=== PATIENT | female | born 1940 | race Caucasian/White ===

== ENCOUNTER 2016-11-10 13:30 | Emergency (ER) | payer MEDICARE, MEDICAID ==
[2016-11-10 13:31] VITALS: BMI 31.6
[2016-11-10 13:39] VITALS: BP 157/88; PULSE 92; RESP 16; TEMP 98; O2SAT 100
--- NOTE | 2016-11-10 13:48 | ED PDOC ---
HPI: General Adult Time Seen by Provider: 11/10/16 13:47 Chief Complaint (Nursing): Abdominal Pain Chief Complaint (Provider): abdominal pain, headache History Per: Patient Additional Complaint(s): 75 year old female presents to ED with diffuse abdominal pain and nausea for the past 2 weeks associated with dizziness and slight headache. Patient is only tolerating sips of water and she states she has not had any solid food in 3 days. She denies any vomiting but states she has been persistently nauseous and dizzy for the past 2 weeks. She rates abd pain upon arrival as 6/10 and headache as 3/10. No associated chest pain, SOB or GONZALEZ, no vision changes or numbness. Patient states she takes pepcid and dexilant daily for gastritis but these meds do not seem to be helping. Past Medical History Reviewed: Historical Data, Nursing Documentation, Vital Signs Vital Signs: Last Vital Signs Temp 98 F 11/10/16 13:35 Pulse 92 H 11/10/16 13:35 Resp 16 11/10/16 13:35 BP 157/88 H 11/10/16 13:35 Pulse Ox 100 11/10/16 17:07 - Medical History PMH: Anxiety, Arthritis, Bipolar Disorder, COPD, Depression, Gastritis, HTN, Hypercholesterolemia - Surgical History Surgical History: Tonsillectomy - Family History Family History: States: No Known Family Hx - Living Arrangements Living Arrangements: With Family - Social History Current smoker - smoking cessation education provided: No Alcohol: None Drugs: Denies - Immunization History Hx Influenza Vaccination: Yes Hx Pneumococcal Vaccination: No - Home Medications Home Medications: Ambulatory Orders Medication Instructions Recorded Aliskiren [Tekturna] 300 mg PO DAILY #0 tab 02/10/16 Atorvastatin [Lipitor] 20 mg PO DAILY #0 tab 02/10/16 Carvedilol [Coreg] 25 mg PO BID #0 tab 02/10/16 LORazepam [Ativan] 0.25 mg PO BID #0 tab 02/10/16 Lisinopril [Zestril] 20 mg PO DAILY #0 tab 02/10/16 Mirtazapine [Remeron] 45 mg PO HS #0 tab 02/10/16 Multimineral/Multivitamin 1 tab PO DAILY #0 tab 02/10/16 [Therapeutic-M Tab] Pantoprazole [Protonix EC Tab] 40 mg PO DAILY #0 ect 02/10/16 Zolpidem [Ambien] 10 mg PO HS #0 tab 02/10/16 amLODIPine [Norvasc] 10 mg PO DAILY #0 tab 02/10/16 buPROPion SR [Wellbutrin SR 150 MG] 150 mg PO DAILY #0 tab 02/10/16 buPROPion [Wellbutrin] 75 mg PO DAILY #0 tab 02/10/16 LORazepam [Ativan] 1 mg PO Q12 PRN #4 tab 06/30/16 Nitrofurantoin Macrocrystals 100 mg PO BID #14 cap 07/08/16 [Macrobid] Ondansetron [Zofran Odt] 4 mg PO ASDIR PRN #10 odt 11/10/16 Rabeprazole Sodium [Aciphex] 20 mg PO DAILY #30 tab 11/10/16 - Allergies Allergies/Adverse Reactions: Allergies Allergy/AdvReac Type Severity Reaction Status Date / Time No Known Allergies Allergy Verified 07/08/16 17:16 Review of Systems ROS Statement: Except As Marked, All Systems Reviewed And Found Negative Constitutional: Negative for: Fever, Chills, Weakness Cardiovascular: Negative for: Chest Pain, Palpitations, Light Headedness Respiratory: Negative for: Cough, Shortness of Breath, SOB with Exertion Gastrointestinal: Positive for: Nausea, Abdominal Pain. Negative for: Vomiting , Diarrhea, Constipation, Melena, Hematochezia, Hematemesis, Rectal Pain Genitourinary Female: Negative for: Dysuria, Frequency Neurological: Positive for: Headache (slight), Dizziness. Negative for: Weakness, Numbness, Incoordination, Change in Speech, Confusion, Seizures, Altered Mental Status Physical Exam - Reviewed Nursing Documentation Reviewed: Yes Vital Signs Reviewed: Yes - Physical Exam Appears: Positive for: Well, Non-toxic, No Acute Distress Skin: Negative for: Rash Eye Exam: Positive for: Normal appearance, EOMI, PERRL Cardiovascular/Chest: Positive for: Regular Rate, Rhythm Respiratory: Positive for: Normal Breath Sounds Gastrointestinal/Abdominal: Positive for: Soft, Tenderness (mild tenderness in all 4 quadrants, no rebound or guarding, obese abdoment) Back: Negative for: L CVA Tenderness, R CVA Tenderness Extremity: Negative for: Pedal Edema Neurologic/Psych: Positive for: Alert, Oriented - Laboratory Results Result Diagrams: 11/10/16 14:40 11/10/16 14:30 - ECG O2 Sat by Pulse Oximetry: 100 Pulse Ox Interpretation: Normal - Other Rad CXR X-Ray: Interpreted by Me, Viewed By Me X-Ray Interpretation: no acute finding KUB X-Ray: Interpreted by Me, Viewed By Me X-Ray Interpretation: no acute finding Abd US X-Ray: Read By Radiologist X-Ray Interpretation: see below Medical Decision Making Medical Decision Makin75 year old female with abdominal pain, nausea, headache and dizziness for 2 weeks Plan: EKG CXR KUB Abd US CBC CMP Lipase Trop UA/Culture IVF IV pepcid and IV zofran PO maalox Abd US: IMPRESSION: Small cyst lower pole left kidney. There may also be a small non-obstructing echogenic calculus lower pole left kidney as detailed above. Follow-up of CT scan of the abdomen pelvis could confirm if necessary. Hepatomegaly. Mild suspected fatty hepatic infiltration however other infiltrative hepatocellular disease process not excluded. Pancreas is not well delineated due to body habitus and bowel gas. Patient feels slightly better after meds given. She tolerated foot tray in ED, no emesis noted. Patient was given rx acihpex for gastritis and she was referred to GI forest economist for follow up. Rx zofran also given. Disposition - Clinical Impression Clinical Impression: Gastritis - Patient ED Disposition Is Patient to be Admitted: No Counseled Patient/Family Regarding: Studies Performed, Diagnosis, Need For Followup, Rx Given - Disposition Referrals: David ADAMS,MD Karan [Medical Doctor] - Disposition: Routine/Home Disposition Time: 16:37 Condition: STABLE Additional Instructions: Stop taking dexilant and started take aciphex as prescribed. Take zofran rx as needed for nausea. Follow up with gatroenterologist or primary care doctor. Prescriptions: Ondansetron [Zofran Odt] 4 mg PO ASDIR PRN #10 odt PRN Reason: Nausea/Vomiting Rabeprazole Sodium [Aciphex] 20 mg PO DAILY #30 tab Instructions: Gastritis (ED), Diet for Ulcers and Gastritis (ED) Results - Lab Results Lab Results: 11/10/16 11/10/16 11/10/16 14:44 14:40 14:30 WBC 8.6 RBC 4.92 Hgb 14.4 Hct 43.0 MCV 87.5 MCH 29.2 MCHC 33.4 RDW 13.2 Plt Count 274 MPV 7.8 Neut % (Auto) 58.0 Lymph % (Auto) 29.2 Dickens % (Auto) 9.1 Eos % (Auto) 3.2 Baso % (Auto) 0.5 Neut # 5.0 Lymph # 2.5 Dickens # 0.8 Eos # 0.3 Baso # 0.0 Sodium 142 Potassium 4.3 Chloride 104 Carbon Dioxide 26 Anion Gap 17 BUN 13 Creatinine 0.7 Est GFR ( Amer) > 60 Est GFR (Non-Af Amer) > 60 Random Glucose 86 Calcium 9.9 Total Bilirubin 0.4 AST 27 ALT 33 Alkaline Phosphatase 90 Troponin I < 0.0120 Total Protein 7.5 Albumin 4.6 Globulin 2.9 Albumin/Globulin Ratio 1.6 Lipase 161 Urine Color Yellow Urine Clarity Slighty-cloudy Urine pH 6.0 Ur Specific [place] 1.018 Urine Protein 30 Urine Glucose (UA) 50 Urine Ketones Negative Urine Blood Negative Urine Nitrate Negative Urine Bilirubin Negative Urine Urobilinogen 0.2-1.0 Ur Leukocyte Esterase Small Urine RBC (Auto) 1 Urine Microscopic WBC 7 H Ur Squamous Epith Cells 1 Calcium Oxalate Crystal Rare Amorphous Sediment Rare H Hyaline Casts >20 H
[2016-11-10] MEDS ORDERED: Sodium Chloride 0.9% 1,000 ML IV STA (14:20)
[2016-11-10] MEDS ORDERED: Alum-Mag Hydrox-Simethicone Susp (30 mL) PO STA (14:35)
[2016-11-10] MEDS ORDERED: Alum-Mag Hydrox-Simethicone Susp (30 mL) ONE (14:44)
[2016-11-10 15:36] LABS: BASO % 0.5 % (0.0-2.0); EOS # 0.3 K/uL (0.0-0.7); EOS % 3.2 % (0.0-4.0); LYMPH # 2.5 K/uL (1.0-4.3); LYMPH % 29.2 % (20.0-40.0); MEAN CELL VOLUME 87.5 fl (81.0-99.0); MEAN CORPUSCULAR HEMOGLOBIN 29.2 pg (27.0-31.0); MEAN CORPUSCULAR HGB CONC 33.4 g/dL (33.0-37.0); MEAN PLATELET VOLUME 7.8 fl (7.2-11.7); MONO # 0.8 K/uL (0.0-0.8); MONO % 9.1 % (0.0-10.0); NRBC % 0.1 % (0.0-0.0); RED CELL DISTRIBUTION WIDTH 13.2 % (11.5-14.5); WHITE BLOOD COUNT 8.6 K/uL (4.8-10.8)
[2016-11-10 15:41] LABS: RBC URINE 1 /hpf (0-3); URINE BILIRUBIN NEGATIVE (NEGATIVE); URINE BLOOD NEGATIVE (NEGATIVE); URINE CALCIUM OXALATE CRYSTALS RARE /hpf (<OCC); URINE COLOR YELLOW (YELLOW); URINE GLUCOSE (UA) 50 mg/dL (Normal); URINE KETONE NEGATIVE (NEGATIVE); URINE LEUKOCYTE ESTERASE SMALL Leu/uL (Negative); URINE PROTEIN 30 mg/dL (NEGATIVE); URINE UROBILINOGEN 0.2-1.0 mg/dL (0.2-1.0); WBC URINE 7 /hpf (0-5)
[2016-11-10 15:46] LABS: ALB/GLOB RATIO 1.6 (1.0-2.1); ALKALINE PHOSPHATASE 90 U/L (38-126); ALT/SGPT 33 U/L (9-52); AST/SGOT 27 U/L (14-36); BILIRUBIN,TOTAL 0.4 mg/dl (0.2-1.3); BLOOD UREA NITROGEN 13 mg/dl (7-17); CALCIUM 9.9 mg/dL (8.4-10.2); CARBON DIOXIDE 26 mmol/L (22-30); CHLORIDE 104 mmol/L (98-107); GFR AFRICAN-AMERICAN > 60; GLUCOSE,RANDOM 86 mg/dL (65-105); LIPASE 161 U/L (23-300); POTASSIUM 4.3 MMOL/L (3.6-5.0); SODIUM 142 mmol/l (132-148); TOTAL PROTEIN 7.5 G/DL (6.3-8.2)
--- NOTE | 2016-11-10 16:14 | US ---
HISTORY: abdominal pain and nausea COMPARISON: None. TECHNIQUE: Sonographic evaluation of the abdomen. FINDINGS: LIVER: Liver is enlarged measuring approximately 21 cm in CC dimension. Liver demonstrates smooth contour though increased on echotexture likely secondary to fatty infiltration however other infiltrative hepatocellular disease process not excluded. No obvious hepatic mass or collection. No gross intrahepatic bile duct dilatation. Portal vein demonstrates hepatopetal flow. GALLBLADDER: Gallbladder is physiologically distended. No evidence of intraluminal gallbladder calculi. No pericholecystic fluid collections or sonographic Patel sign. COMMON BILE DUCT: Measures the the 4.1 mm. No stones. No dilatation. PANCREAS: Note the pancreas is incompletely seen due to bowel gas and body habitus. RIGHT KIDNEY: Measures 10.4 x 5.7 x 4.7 LEFT KIDNEY: Measures 10.4 x 4.6 x 5.3cm. Normal echogenicity. No calculus, mass, or hydronephrosis. . Small cyst lower pole left kidney measuring 2.7 x 2.9 x 2.5. In addition, there is an echogenic focus lower pole measuring 0.97 x 0.8 x 0.54 that could represent a nonobstructing calculus SPLEEN: Normal in size measuring approximately 8.5 cm. . No mass. AORTA: No evidence of abdominal aortic aneurysm IVC: Unremarkable. OTHER FINDINGS: None. IMPRESSION: Small cyst lower pole left kidney. There may also be a small obstructing echogenic calculus lower pole left kidney as detailed above. Follow-up of CT scan of the abdomen pelvis could confirm if necessary. Hepatomegaly. Mild suspected fatty hepatic infiltration however other infiltrative hepatocellular disease process not excluded. Pancreas is not well delineated due to body habitus and bowel gas.
--- NOTE | 2016-11-10 16:57 | RAD ---
HISTORY: clearance COMPARISON: Comparison chest dated 01/20/2016 FINDINGS: LUNGS: Mild bibasilar atelectasis. Biapical pleural thickening. PLEURA: No significant pleural effusion identified, no pneumothorax apparent. CARDIOVASCULAR: Heart size is upper limits of normal/ borderline enlarged. OSSEOUS STRUCTURES: Re- demonstrated is a moderate to fairly significant dextroscoliosis centered in the lower thoracic region. Degenerative changes both shoulder girdles. VISUALIZED UPPER ABDOMEN: Normal. OTHER FINDINGS: None. IMPRESSION: No active disease.
--- NOTE | 2016-11-10 17:21 | RAD ---
HISTORY: abd pain COMPARISON: Correlation made with abdominal ultrasound obtained earlier same day FINDINGS: BOWEL: Nonobstructive/nonspecific bowel gas pattern. BONES: Multilevel degenerative spondylosis of the lower thoracic and to a lesser degree lumbar spine. There may also be chronic compression deformity of the L2 segment. Clinic correlation recommended. OTHER FINDINGS: Small elliptical shaped at calcific density overlying the left renal silhouette (lower pole measuring 7 mm could represent a nonobstructing calculus. Multiple tiny calcifications overlying of pelvis consistent with calcified pelvic phleboliths IMPRESSION: No evidence of acute mechanical bowel obstruction. Suspect renal calculus lower pole left kidney seen to better advantage on prior abdominal ultrasound.
--- NOTE | 2016-11-11 13:28 | CARD ---
APPROVED REPORT EKG Measurement Heart [id number] <Conclusion> Normal sinus rhythm Possible Anterior infarct, age undetermined-not diagnostic Abnormal ECG
== END 2016-11-10 18:16 | disposition home or self-care (01) ==
LOC: H.ER 13:30
DX: K29.70 Gastritis, unspecified, without bleeding (principal); R11.0 Nausea; R51 Headache; I10 Essential (primary) hypertension
CPT/HCPCS: 71010; 74000; 76700; 80053; 81003; 83690; 84484; 85025; 87086; 93005; 96374; 99284; J2405; J7040

== ENCOUNTER 2016-11-20 11:39 | Emergency (ER) | payer MEDICARE, MEDICAID ==
[2016-11-20 11:39] VITALS: BMI 31.6
[2016-11-20 11:50] VITALS: TEMP 98
[2016-11-20] MEDS ORDERED: Sodium Chloride 0.9% 500 ML IV STA (12:00)
[2016-11-20 12:24] LABS: BASO # 0.1 K/uL (0.0-0.2); BASO % 0.7 % (0.0-2.0); EOS # 0.2 K/uL (0.0-0.7); EOS % 1.9 % (0.0-4.0); HEMOGLOBIN 15.3 g/dL (12.0-16.0); LYMPH # 3.1 K/uL (1.0-4.3); LYMPH % 26.3 % (20.0-40.0); MEAN CELL VOLUME 87.6 fl (81.0-99.0); MEAN CORPUSCULAR HEMOGLOBIN 29.2 pg (27.0-31.0); MEAN CORPUSCULAR HGB CONC 33.3 g/dL (33.0-37.0); MEAN PLATELET VOLUME 7.6 fl (7.2-11.7); MONO # 0.8 K/uL (0.0-0.8); NEUT # 7.5 K/uL (1.8-7.0); NEUT % 64.1 % (50.0-75.0); NRBC % 0.1 % (0.0-0.0); RBC 5.25 Mil/uL (3.80-5.20); RED CELL DISTRIBUTION WIDTH 13.2 % (11.5-14.5); WHITE BLOOD COUNT 11.7 K/uL (4.8-10.8)
[2016-11-20 12:32] LABS: ALB/GLOB RATIO 1.6 (1.0-2.1); ALBUMIN 5.1 g/dL (3.5-5.0); ALT/SGPT 40 U/L (9-52); AST/SGOT 26 U/L (14-36); BLOOD UREA NITROGEN 14 mg/dl (7-17); CALCIUM 10.7 mg/dL (8.4-10.2); GFR AFRICAN-AMERICAN > 60; GFR NON-AFRICAN AMERICAN > 60; LIPASE 208 U/L (23-300); MAGNESIUM 2.1 MG/DL (1.6-2.3)
[2016-11-20 12:46] LABS: SQUAMOUS EPITHIAL 1 /hpf (0-5); URINE BACTERIA RARE (<OCC); URINE BILIRUBIN NEGATIVE (NEGATIVE); URINE BLOOD NEGATIVE (NEGATIVE); URINE CLARITY CLEAR (Clear); URINE COLOR YELLOW (YELLOW); URINE GLUCOSE (UA) 150 mg/dL (Normal); URINE LEUKOCYTE ESTERASE MOD Leu/uL (Negative); URINE NITRATE NEGATIVE (NEGATIVE); URINE PROTEIN NEGATIVE (NEGATIVE); URINE UROBILINOGEN 0.2-1.0 mg/dL (0.2-1.0)
[2016-11-20 13:01] LABS: BARBITURATES, UR NEGATIVE (NEGATIVE); BENZODIAZEPINES, UR POSITIVE (NEGATIVE); OPIATES, UR NEGATIVE (NEGATIVE); PHENCYCLIDINE, UR NEGATIVE (NEGATIVE)
--- NOTE | 2016-11-20 13:04 | ED PDOC ---
HPI: Abdomen Time Seen by Provider: 11/20/16 11:59 Chief Complaint (Nursing): Abdominal Pain Chief Complaint (Provider): abdominal pain History Per: Patient (75 y/o female h/o Anxiety/bipolar disorder/htn/ hyperlipidemia here with decreased appetite, nausea ongoing x weeks. Patient states she has not been able to eat despite use of dexilant/zofran. Patient states she feels depressed but has no SI/HI. ) Past Medical History Reviewed: Historical Data, Nursing Documentation, Vital Signs Vital Signs: Last Vital Signs Temp 98 F 11/20/16 11:47 Pulse 108 H 11/20/16 11:47 Resp 20 11/20/16 11:47 BP 104/62 11/20/16 11:47 Pulse Ox 98 11/20/16 18:00 - Medical History PMH: Anxiety, Arthritis, Bipolar Disorder, COPD, Depression, Gastritis, HTN, Hypercholesterolemia Denies: Diabetes, Hepatitis, HIV, Chronic Kidney Disease, Seizures, Sexually Transmitted Disease - Surgical History Surgical History: Tonsillectomy Denies: Pacemaker - Family History Family History: States: Unknown Family Hx - Immunization History Hx Influenza Vaccination: Yes Hx Pneumococcal Vaccination: No - Home Medications Home Medications: Ambulatory Orders Medication Instructions Recorded Aliskiren [Tekturna] 300 mg PO DAILY #0 tab 02/10/16 Atorvastatin [Lipitor] 20 mg PO DAILY #0 tab 02/10/16 Carvedilol [Coreg] 25 mg PO BID #0 tab 02/10/16 LORazepam [Ativan] 0.25 mg PO BID #0 tab 02/10/16 Lisinopril [Zestril] 20 mg PO DAILY #0 tab 02/10/16 Mirtazapine [Remeron] 45 mg PO HS #0 tab 02/10/16 Multimineral/Multivitamin 1 tab PO DAILY #0 tab 02/10/16 [Therapeutic-M Tab] Pantoprazole [Protonix EC Tab] 40 mg PO DAILY #0 ect 02/10/16 Zolpidem [Ambien] 10 mg PO HS #0 tab 02/10/16 amLODIPine [Norvasc] 10 mg PO DAILY #0 tab 02/10/16 buPROPion SR [Wellbutrin SR 150 MG] 150 mg PO DAILY #0 tab 02/10/16 buPROPion [Wellbutrin] 75 mg PO DAILY #0 tab 02/10/16 LORazepam [Ativan] 1 mg PO Q12 PRN #4 tab 06/30/16 Nitrofurantoin Macrocrystals 100 mg PO BID #14 cap 07/08/16 [Macrobid] Ondansetron [Zofran Odt] 4 mg PO ASDIR PRN #10 odt 11/10/16 Rabeprazole Sodium [Aciphex] 20 mg PO DAILY #30 tab 11/10/16 - Allergies Allergies/Adverse Reactions: Allergies Allergy/AdvReac Type Severity Reaction Status Date / Time No Known Allergies Allergy Verified 11/20/16 11:46 Review of Systems ROS Statement: Except As Marked, All Systems Reviewed And Found Negative Physical Exam - Reviewed Nursing Documentation Reviewed: Yes Vital Signs Reviewed: Yes - Physical Exam Appears: Positive for: Well, Non-toxic, No Acute Distress Head Exam: Positive for: ATRAUMATIC, NORMAL INSPECTION, NORMOCEPHALIC Skin: Positive for: Normal Color, Warm, DRY Eye Exam: Positive for: EOMI, Normal appearance, PERRL ENT: Positive for: Normal ENT Inspection Neck: Positive for: Normal, Painless ROM Cardiovascular/Chest: Positive for: Regular Rate, Rhythm Respiratory: Positive for: CNT, Normal Breath Sounds Gastrointestinal/Abdominal: Positive for: Normal Exam, Bowel Sounds, Soft Back: Positive for: Normal Inspection Extremity: Positive for: Normal ROM Neurologic/Psych: Positive for: Alert, Oriented - Laboratory Results Result Diagrams: 11/20/16 12:15 11/20/16 12:15 - ECG O2 Sat by Pulse Oximetry: 98 - Progress ED Course And Treament: NS 500ML IV 250 ML PER HOUR PEPCID 20 MG IV /ZOFRAN 4 MG IV X 1 DOSE PATIENT CLEARED FOR DISCHARGE BY DR. ORELLANA. DIAGNOSIS DEPRESSION PATIENT TO F/U OUTPATIENT ON SATURDAY WITH PSYCH. WILL GIVE MEAL IN ED. CT ABDOMEN/ PELVIS FINDINGS: LOWER THORAX: Minor linear atelectasis/ scarring and pleural thickening left lingular region felt to be postinflammatory. There is also some minimal scarring and parenchymal thickening left lateral and posterior sulci. No infiltrate effusion or basilar pneumothorax. . There is a small hiatal hernia with wall thickening of the distal esophagus that could be due to protrusion of gastric mucosa. Esophagitis or other intrinsic/invasive wall lesion not excluded. LIVER: Liver is enlarged measuring nearly 20 cm in CC dimension. Questionable artifact versus tiny 7 mm low-attenuation focus superior aspect right lobe liver near the diaphragmatic dome best seen on axial image number 16 Liver demonstrates normal attenuation pattern. GALLBLADDER AND BILE DUCTS: Gallbladder is physiologically distended. No evidence of intraluminal gallbladder calculi. PANCREAS: The pancreas is somewhat atrophic and fatty replaced. No evidence of pancreatic mass collection or calcification. No significant pancreatic ductal dilatation. SPLEEN: Spleen exhibits relatively normal size and attenuation pattern without mass collection or calcification. ADRENALS: Re- demonstrated is a left adrenal mass which has increased in size measuring approximately 2.48 cm on current exam. This 1.9 cm on prior study. . Hounsfield units in the high single and low double digits most likely represent adenoma Right adrenal gland unremarkable. KIDNEYS AND URETERS: The kidneys exhibit relatively symmetric size. There is N approximately 7.8 mm calculus within the mid to lower pole left kidney with a very faint somewhat linear approximately 4 mm calculus upper/ midpole left kidney. Peripheral calcification within the left renal hilar region likely vascular in origin. There is an approximately 3 cm x 2.7 cm cyst lower pole left kidney which is increased in size from prior exam. No definitive evidence of hydronephrosis. BLADDER: Urinary bladder is physiologically distended. No evidence of intraluminal urinary bladder calculi. REPRODUCTIVE: Several small calcifications scattered about the distal margins of the uterus likely vascular in origin. APPENDIX: Normal-appearing partially air filled appendix best seen on coronal image number [id number]. No periappendiceal inflammatory changes. BOWEL: Evaluation of the bowel is limited due to the lack of oral contrast material. Stomach is incompletely distended which presumably accounts for thick-walled appearance. The possibility of a gastritis not excluded. Visualized loops of small bowel exhibit normal contour and caliber. No evidence acute mechanical small bowel obstruction. Multiple colonic diverticula seen along the sigmoid and distal descending colon. No radiographic evidence of acute diverticulitis. There appears to be some mild rectal wall thickening. Clinical correlation recommended. Follow-up sigmoidoscopy may be prudent PERITONEUM: Unremarkable. No fluid collection. No free air. Small fat containing umbilical hernia. LYMPH NODES: There are few small nonspecific retroperitoneal lymph nodes. VASCULATURE: Unremarkable. No aortic aneurysm. BONES: Mild multilevel degenerative spondylosis of the lower thoracic and lumbar spine. There is slight anterior subluxation L4 over L5 felt to be secondary to hypertrophic facets as no definitive pars defects seen. OTHER FINDINGS: None. IMPRESSION: There is an approximately 7.8 mm elliptical shaped calcification within the lower pole left kidney ago with a faint linear calcification upper pole left kidney. No evidence of hydronephrosis. Probable vascular calcification left renal hilar region. Lower pole cyst left kidney increased in size from prior exam as above. Hepatomegaly. Questionable artifact versus tiny 7 mm low-attenuation focus superior aspect right lobe liver near the diaphragmatic dome best seen on axial image number 16 Diverticulosis without radiographic evidence of acute diverticulitis. There appears to be some mild rectal wall thickening. Clinical correlation recommended. Follow-up sigmoidoscopy may be prudent Increase size left adrenal mass likely representing adenoma based on Hounsfield units in the upper single /low double digits as above. RESULTS D/W PATIENT. ADVISED F/U WITH PMD TO ARRANGE FURTHER MANAGEMENT/ INVESTIGATION OF FINDINGS. PATIENT EATING IN ED. APPEARS WELL. WILL F/U WITH UROLOGY ALSO FOR EVALUATION OF RENAL STONE. Disposition - Clinical Impression Clinical Impression: Depression - Patient ED Disposition Is Patient to be Admitted: No - Disposition Referrals: Jennifer Cha MD [Medical Doctor] - Disposition: Routine/Home Disposition Time: 16:11 Condition: FAIR Instructions: Kidney Stones (DC), Depression (DC)
--- NOTE | 2016-11-20 13:04 | RAD ---
HISTORY: routine COMPARISON: No prior. FINDINGS: LUNGS: Poor inspiration with low lung volumes, crowded bronchovascular markings and mild bibasilar atelectasis. PLEURA: No significant pleural effusion identified, no pneumothorax apparent. CARDIOVASCULAR: Normal. OSSEOUS STRUCTURES: No significant abnormalities. VISUALIZED UPPER ABDOMEN: Normal. OTHER FINDINGS: None. IMPRESSION: Poor inspiration with low lung volumes, crowded bronchovascular markings and mild bibasilar atelectasis
--- NOTE | 2016-11-20 14:08 | RAD ---
Chest and abdomen dated 11/20/2016. History: Abdominal pain. Nausea. Frontal view of the chest and supine/erect views of the abdomen performed. Comparison made with prior studies dated 11/20/2016 and 11/10/2016 respectively. Heart size is within range of normal. Mild bibasilar atelectasis. Biapical pleural thickening is present. No evidence of free intraperitoneal air seen under the diaphragmatic surfaces. . No evidence of acute mechanical bowel obstruction. Re- demonstrated is a elliptical shaped calcific density overlying the lower pole left renal silhouette. Rule out renal calculus. Multiple tiny calculi overlying the true pelvis likely represent calcified pelvic phleboliths. Multiple tiny left-sided calcified buttock injection granulomata present. Multilevel degenerative spondylosis of the thoracic and lumbar spine Impression: Mild bibasilar atelectasis and mild biapical pleural thickening. No evidence acute mechanical bowel obstruction. Questionable left renal calculus as described.
--- NOTE | 2016-11-20 17:23 | CT ---
PROCEDURE: CT abdomen and pelvis dated 11/20/2016 HISTORY: R/O HYDRONEPHROSIS; OBSTRUCTED CALCULI COMPARISON: None. TECHNIQUE: Contiguous axial images of the abdomen and pelvis pelvis without oral or intravenous contrast material. Coronal and Sagittal reformats generated. Radiation dose: Total exam DLP = 914.71 mGy-cm. This CT exam was performed using one or more of the following dose reduction techniques: Automated exposure control, adjustment of the mA and/or kV according to patient size, and/or use of iterative reconstruction technique. FINDINGS: LOWER THORAX: Minor linear atelectasis/ scarring and pleural thickening left lingular region felt to be postinflammatory. There is also some minimal scarring and parenchymal thickening left lateral and posterior sulci. No infiltrate effusion or basilar pneumothorax. . There is a small hiatal hernia with wall thickening of the distal esophagus that could be due to protrusion of gastric mucosa. Esophagitis or other intrinsic/invasive wall lesion not excluded. LIVER: Liver is enlarged measuring nearly 20 cm in CC dimension. Questionable artifact versus tiny 7 mm low-attenuation focus superior aspect right lobe liver near the diaphragmatic dome best seen on axial image number 16 Liver demonstrates normal attenuation pattern. GALLBLADDER AND BILE DUCTS: Gallbladder is physiologically distended. No evidence of intraluminal gallbladder calculi. PANCREAS: The pancreas is somewhat atrophic and fatty replaced. No evidence of pancreatic mass collection or calcification. No significant pancreatic ductal dilatation. SPLEEN: Spleen exhibits relatively normal size and attenuation pattern without mass collection or calcification. ADRENALS: Re- demonstrated is a left adrenal mass which has increased in size measuring approximately 2.48 cm on current exam. This 1.9 cm on prior study. . Hounsfield units in the high single and low double digits most likely represent adenoma Right adrenal gland unremarkable. KIDNEYS AND URETERS: The kidneys exhibit relatively symmetric size. There is N approximately 7.8 mm calculus within the mid to lower pole left kidney with a very faint somewhat linear approximately 4 mm calculus upper/ midpole left kidney. Peripheral calcification within the left renal hilar region likely vascular in origin. There is an approximately 3 cm x 2.7 cm cyst lower pole left kidney which is increased in size from prior exam. No definitive evidence of hydronephrosis. BLADDER: Urinary bladder is physiologically distended. No evidence of intraluminal urinary bladder calculi. REPRODUCTIVE: Several small calcifications scattered about the distal margins of the uterus likely vascular in origin. APPENDIX: Normal-appearing partially air filled appendix best seen on coronal image number [id number]. No periappendiceal inflammatory changes. BOWEL: Evaluation of the bowel is limited due to the lack of oral contrast material. Stomach is incompletely distended which presumably accounts for thick-walled appearance. The possibility of a gastritis not excluded. Visualized loops of small bowel exhibit normal contour and caliber. No evidence acute mechanical small bowel obstruction. Multiple colonic diverticula seen along the sigmoid and distal descending colon. No radiographic evidence of acute diverticulitis. There appears to be some mild rectal wall thickening. Clinical correlation recommended. Follow-up sigmoidoscopy may be prudent PERITONEUM: Unremarkable. No fluid collection. No free air. Small fat containing umbilical hernia. LYMPH NODES: There are few small nonspecific retroperitoneal lymph nodes. VASCULATURE: Unremarkable. No aortic aneurysm. BONES: Mild multilevel degenerative spondylosis of the lower thoracic and lumbar spine. There is slight anterior subluxation L4 over L5 felt to be secondary to hypertrophic facets as no definitive pars defects seen. OTHER FINDINGS: None. IMPRESSION: There is an approximately 7.8 mm elliptical shaped calcification within the lower pole left kidney ago with a faint linear calcification upper pole left kidney. No evidence of hydronephrosis. Probable vascular calcification left renal hilar region. Lower pole cyst left kidney increased in size from prior exam as above. Hepatomegaly. Questionable artifact versus tiny 7 mm low-attenuation focus superior aspect right lobe liver near the diaphragmatic dome best seen on axial image number 16 Diverticulosis without radiographic evidence of acute diverticulitis. There appears to be some mild rectal wall thickening. Clinical correlation recommended. Follow-up sigmoidoscopy may be prudent Increase size left adrenal mass likely representing adenoma based on Hounsfield units in the upper single /low double digits as above.
[2016-11-20 18:23] VITALS: BP 136/72; PULSE 90; RESP 19; O2SAT 99
--- NOTE | 2016-11-22 11:50 | CARD ---
APPROVED REPORT EKG Measurement Heart [id number] <Conclusion> Normal sinus rhythm Normal ECG
== END 2016-11-20 18:40 | disposition home or self-care (01) ==
LOC: H.ER 11:39
DX: R10.9 Unspecified abdominal pain (principal); N20.0 Calculus of kidney; F41.9 Anxiety disorder, unspecified; F31.9 Bipolar disorder, unspecified; E27.9 Disorder of adrenal gland, unspecified; E78.00 Pure hypercholesterolemia, unspecified; I10 Essential (primary) hypertension
CPT/HCPCS: 71010; 74022; 74176; 80053; 81003; 83690; 83735; 84443; 84484; 85025; 87086; 87181; 93005; 96361; 96374; 96375; 99284; G0480; J2405; J7040

== ENCOUNTER 2016-12-01 12:28 | Emergency (ER) | payer MEDICARE, MEDICAID ==
[2016-12-01 12:29] VITALS: BMI 31.6
[2016-12-01 12:43] VITALS: BP 106/66; PULSE 73; RESP 18; TEMP 99.3; O2SAT 98
--- NOTE | 2016-12-01 13:13 | ED PDOC ---
HPI: Abdomen Time Seen by Provider: 12/01/16 12:47 Chief Complaint (Nursing): Abdominal Pain Chief Complaint (Provider): abdominal pain, vomiting, nausea History Per: Patient Additional Complaint(s): 75-year-old female presents to emergency department with vomiting and abdominal pain for 3 days. Patient states that she took Zofran this morning but vomited after taking the Zofran. Patient states she has not had a solid meal in 3 days. She does tolerate sips of water. Patient denies fever or chills. No diarrhea. Patient has been seen in emergency department recently for same complaint. Past Medical History Reviewed: Historical Data, Nursing Documentation, Vital Signs Vital Signs: Last Vital Signs Temp 99.3 F 12/01/16 12:40 Pulse 73 12/01/16 12:40 Resp 18 12/01/16 12:40 BP 106/66 12/01/16 12:40 Pulse Ox 98 12/01/16 15:17 - Medical History PMH: Anxiety, Arthritis, Bipolar Disorder, COPD, Depression, Diabetes, Gastritis , HTN, Hypercholesterolemia - Surgical History Surgical History: Tonsillectomy - Family History Family History: States: No Known Family Hx - Living Arrangements Living Arrangements: With Family - Social History Current smoker - smoking cessation education provided: No Alcohol: None Drugs: Denies - Home Medications Home Medications: Ambulatory Orders Medication Instructions Recorded Aliskiren [Tekturna] 300 mg PO DAILY #0 tab 02/10/16 Atorvastatin [Lipitor] 20 mg PO DAILY #0 tab 02/10/16 Carvedilol [Coreg] 25 mg PO BID #0 tab 02/10/16 LORazepam [Ativan] 0.25 mg PO BID #0 tab 02/10/16 Lisinopril [Zestril] 20 mg PO DAILY #0 tab 02/10/16 Mirtazapine [Remeron] 45 mg PO HS #0 tab 02/10/16 Multimineral/Multivitamin 1 tab PO DAILY #0 tab 02/10/16 [Therapeutic-M Tab] Pantoprazole [Protonix EC Tab] 40 mg PO DAILY #0 ect 02/10/16 Zolpidem [Ambien] 10 mg PO HS #0 tab 02/10/16 amLODIPine [Norvasc] 10 mg PO DAILY #0 tab 02/10/16 buPROPion SR [Wellbutrin SR 150 MG] 150 mg PO DAILY #0 tab 02/10/16 buPROPion [Wellbutrin] 75 mg PO DAILY #0 tab 02/10/16 LORazepam [Ativan] 1 mg PO Q12 PRN #4 tab 06/30/16 Nitrofurantoin Macrocrystals 100 mg PO BID #14 cap 07/08/16 [Macrobid] Ondansetron [Zofran Odt] 4 mg PO ASDIR PRN #10 odt 11/10/16 Rabeprazole Sodium [Aciphex] 20 mg PO DAILY #30 tab 11/10/16 Metoclopramide [Reglan] 10 mg PO Q6 PRN #15 tab 12/01/16 Nitrofurantoin Macrocrystals 100 mg PO BID #20 tab 12/01/16 [Macrobid] - Allergies Allergies/Adverse Reactions: Allergies Allergy/AdvReac Type Severity Reaction Status Date / Time No Known Allergies Allergy Verified 11/20/16 11:46 Review of Systems ROS Statement: Except As Marked, All Systems Reviewed And Found Negative Constitutional: Negative for: Fever, Chills Cardiovascular: Negative for: Chest Pain, Palpitations Respiratory: Negative for: Cough, Shortness of Breath Gastrointestinal: Positive for: Nausea, Vomiting, Abdominal Pain. Negative for : Diarrhea Genitourinary Female: Negative for: Dysuria Neurological: Negative for: Headache Physical Exam - Reviewed Nursing Documentation Reviewed: Yes Vital Signs Reviewed: Yes - Physical Exam Appears: Positive for: Well, Non-toxic, No Acute Distress Skin: Negative for: Rash Eye Exam: Positive for: Normal appearance, EOMI, PERRL Cardiovascular/Chest: Positive for: Regular Rate, Rhythm Respiratory: Positive for: Normal Breath Sounds. Negative for: Wheezing, Respiratory Distress Gastrointestinal/Abdominal: Positive for: Soft. Negative for: Tenderness, Distended, Guarding, Rebound Back: Negative for: L CVA Tenderness, R CVA Tenderness Extremity: Negative for: Pedal Edema Neurologic/Psych: Positive for: Alert, Oriented - Laboratory Results Result Diagrams: 12/01/16 13:30 12/01/16 14:15 - ECG O2 Sat by Pulse Oximetry: 98 Pulse Ox Interpretation: Normal Medical Decision Making Medical Decision Makin75 year old with persistent vomiting and abdominal pain. Abdominal exam is benign. Previous records reviewed. Abd US taken on 11/10/[address] abd and pelvis taken 11/20/16 showed no acute finding Plan: CBC CMP Lipase UA IV zofran IVF UTI noted, 1 gram IV rocephin given in ED. Patient feels better after meds given. She was given a food tray which was tolerated well. Prescriptions given for Reglan and Macrobid. Patient was instructed to follow up with primary care doctor. Disposition - Clinical Impression Clinical Impression: Gastritis, UTI (urinary tract infection) - Patient ED Disposition Is Patient to be Admitted: No Counseled Patient/Family Regarding: Studies Performed, Diagnosis, Need For Followup, Rx Given - Disposition Referrals: Jamaal Ramos [Family Provider] - Disposition: Routine/Home Disposition Time: 15:08 Condition: STABLE Additional Instructions: Treatment plenty of fluids. Follow bland diet. Prescription antibiotics as directed. Take Reglan as needed for nausea. Follow-up on Saturday with primary care doctor. Prescriptions: Metoclopramide [Reglan] 10 mg PO Q6 PRN #15 tab PRN Reason: Nausea/Vomiting Nitrofurantoin Macrocrystals [Macrobid] 100 mg PO BID #20 tab Instructions: Gastritis (ED), Urinary Tract Infection in Women (ED) Results - Lab Results Lab Results: 12/01/16 12/01/16 12/01/16 14:15 13:30 13:30 WBC 12.2 H RBC 4.73 Hgb 14.0 Hct 41.8 MCV 88.4 MCH 29.5 MCHC 33.4 RDW 12.7 Plt Count 303 MPV 7.5 Neut % (Auto) 67.9 Lymph % (Auto) 21.2 Blair % (Auto) 7.1 Eos % (Auto) 2.2 Baso % (Auto) 1.6 Neut # 8.3 H Lymph # 2.6 Blair # 0.9 H Eos # 0.3 Baso # 0.2 Sodium 138 Potassium 4.8 Chloride 103 Carbon Dioxide 24 Anion Gap 16 BUN 15 Creatinine 0.8 Est GFR ( Amer) > 60 Est GFR (Non-Af Amer) > 60 Random Glucose 105 Calcium 9.9 Total Bilirubin 0.4 AST 23 ALT 38 Alkaline Phosphatase 84 Total Protein 6.8 Albumin 4.2 Globulin 2.6 Albumin/Globulin Ratio 1.7 Lipase 231 Urine Color Yellow Urine Clarity Slighty-cloudy Urine pH 6.0 Ur Specific Line [place] 1.019 Urine Protein 100 Urine Glucose (UA) Neg Urine Ketones Negative Urine Blood Negative Urine Nitrate Negative Urine Bilirubin Negative Urine Urobilinogen 0.2-1.0 Ur Leukocyte Esterase Mod Urine RBC (Auto) 4 H Urine Microscopic WBC 62 H Ur Squamous Epith Cells 1 Calcium Oxalate Crystal Occ H Urine Bacteria Rare Hyaline Casts 3-5 H
[2016-12-01] MEDS ORDERED: Sodium Chloride 0.9% 1,000 ML IV STA (13:19)
[2016-12-01 13:45] LABS: BASO # 0.2 K/uL (0.0-0.2); BASO % 1.6 % (0.0-2.0); EOS # 0.3 K/uL (0.0-0.7); EOS % 2.2 % (0.0-4.0); LYMPH # 2.6 K/uL (1.0-4.3); LYMPH % 21.2 % (20.0-40.0); MEAN CELL VOLUME 88.4 fl (81.0-99.0); MEAN CORPUSCULAR HEMOGLOBIN 29.5 pg (27.0-31.0); MEAN CORPUSCULAR HGB CONC 33.4 g/dL (33.0-37.0); MEAN PLATELET VOLUME 7.5 fl (7.2-11.7); MONO # 0.9 K/uL (0.0-0.8); MONO % 7.1 % (0.0-10.0); NEUT # 8.3 K/uL (1.8-7.0); NEUT % 67.9 % (50.0-75.0); NRBC % 0.1 % (0.0-0.0); RBC 4.73 Mil/uL (3.80-5.20); RED CELL DISTRIBUTION WIDTH 12.7 % (11.5-14.5); WHITE BLOOD COUNT 12.2 K/uL (4.8-10.8)
[2016-12-01 14:13] LABS: SQUAMOUS EPITHIAL 1 /hpf (0-5); URINE BACTERIA RARE (<OCC); URINE BILIRUBIN NEGATIVE (NEGATIVE); URINE BLOOD NEGATIVE (NEGATIVE); URINE CALCIUM OXALATE CRYSTALS OCC /hpf (<OCC); URINE CLARITY SLIGHTY-CLOUDY (Clear); URINE COLOR YELLOW (YELLOW); URINE GLUCOSE (UA) NEG (Normal); URINE LEUKOCYTE ESTERASE MOD Leu/uL (Negative); URINE NITRATE NEGATIVE (NEGATIVE); URINE PROTEIN 100 mg/dL (NEGATIVE); URINE UROBILINOGEN 0.2-1.0 mg/dL (0.2-1.0)
[2016-12-01] MEDS ORDERED: cefTRIAXone (Rocephin) 1 gm Inj ONE (14:49)
[2016-12-01 14:50] LABS: ALB/GLOB RATIO 1.7 (1.0-2.1); ALBUMIN 4.2 g/dL (3.5-5.0); ALT/SGPT 38 U/L (9-52); AST/SGOT 23 U/L (14-36); BLOOD UREA NITROGEN 15 mg/dl (7-17); CALCIUM 9.9 mg/dL (8.4-10.2); GFR AFRICAN-AMERICAN > 60; GFR NON-AFRICAN AMERICAN > 60; LIPASE 231 U/L (23-300)
== END 2016-12-01 16:58 | disposition home or self-care (01) ==
LOC: H.ER 12:28
DX: K29.70 Gastritis, unspecified, without bleeding (principal); N39.0 Urinary tract infection, site not specified; E11.9 Type 2 diabetes mellitus without complications; E78.00 Pure hypercholesterolemia, unspecified; F31.9 Bipolar disorder, unspecified; F41.9 Anxiety disorder, unspecified; I10 Essential (primary) hypertension; J44.9 Chronic obstructive pulmonary disease, unspecified
CPT/HCPCS: 80053; 81003; 83690; 85025; 87086; 96374; 96375; 99281; J0696; J2405; J7040

== ENCOUNTER 2016-12-29 16:18 | Emergency (ER) | payer MEDICARE, MEDICAID ==
[2016-12-29 16:19] VITALS: BMI 31.6
[2016-12-29 16:25] VITALS: BP 124/69; PULSE 102; RESP 18; TEMP 98.6; O2SAT 98
[2016-12-29] MEDS ORDERED: Sodium Chloride 0.9% 1,000 ML IV STA (16:45)
--- NOTE | 2016-12-29 16:52 | ED PDOC ---
HPI: Abdomen Time Seen by Provider: 12/29/16 16:31 Chief Complaint (Nursing): Dizziness/Lightheaded Chief Complaint (Provider): Abd pain History Per: Patient History/Exam Limitations: no limitations Onset/Duration Of Symptoms: Days (2 days) Additional Complaint(s): Pt. had lithrotripsy 2 days ago and has had diffuse abd and back pain since. States her doctor did not give her any meds for pain. She is straining her urine. Has no weakness, headaches, runny nose, headaches, chest pain, dyspnea. No dysuria. Has dizziness with the pain. States the pain makes her have suicidal thoughts. No act on thoughts. No drugs or etoh. Past Medical History Vital Signs: Last Vital Signs Temp 98.6 F 12/29/16 16:22 Pulse 102 H 12/29/16 16:22 Resp 18 12/29/16 16:22 BP 124/69 12/29/16 16:22 Pulse Ox 98 12/29/16 16:55 - Medical History PMH: Anxiety, Arthritis, Bipolar Disorder, COPD, Depression, Gastritis, HTN, Hypercholesterolemia Denies: Chronic Kidney Disease, Seizures, Sexually Transmitted Disease Other PMH: kidney stones - Surgical History Surgical History: Tonsillectomy Denies: Pacemaker Other surgeries: lithrotripsy - Family History Family History: States: Unknown Family Hx - Living Arrangements Living Arrangements: With Family - Social History Alcohol: None Drugs: Denies - Immunization History Hx Influenza Vaccination: Yes Hx Pneumococcal Vaccination: No - Home Medications Home Medications: Ambulatory Orders Medication Instructions Recorded Alprazolam [Xanax] 0.5 mg PO TID 12/29/16 Amlodipine Besylate/Benazepril 1 tab PO QAM 12/29/16 [Amlodipine-Benazepril 10-20 mg] Carvedilol [Coreg] 25 mg PO BID 12/29/16 Dexlansoprazole [Dexilant] 60 mg PO QAM 12/29/16 Levomilnacipran HCl [Fetzima] 120 mg PO DAILY 12/29/16 Linaclotide [Linzess] 145 mcg PO DAILY 12/29/16 Rosuvastatin Calcium [Crestor] 10 mg PO HS 12/29/16 traMADol [Ultram] 50 mg PO BID 12/29/16 - Allergies Allergies/Adverse Reactions: Allergies Allergy/AdvReac Type Severity Reaction Status Date / Time No Known Allergies Allergy Verified 12/29/16 16:21 Review of Systems ROS Statement: Except As Marked, All Systems Reviewed And Found Negative Gastrointestinal: Positive for: Abdominal Pain Musculoskeletal: Positive for: Back Pain Neurological: Positive for: Dizziness Physical Exam - Reviewed Nursing Documentation Reviewed: Yes Vital Signs Reviewed: Yes - Physical Exam Appears: Positive for: Non-toxic, No Acute Distress Head Exam: Positive for: ATRAUMATIC, NORMAL INSPECTION, NORMOCEPHALIC Skin: Positive for: Normal Color, Warm, DRY Eye Exam: Positive for: EOMI, Normal appearance, PERRL ENT: Positive for: Normal ENT Inspection Neck: Positive for: Normal, Painless ROM Cardiovascular/Chest: Positive for: Regular Rate, Rhythm Respiratory: Positive for: CNT, Normal Breath Sounds Gastrointestinal/Abdominal: Positive for: Bowel Sounds, Soft, Tenderness ( diffuse mild). Negative for: Distended, Guarding, Rebound Back: Positive for: Normal Inspection. Negative for: L CVA Tenderness, R CVA Tenderness Extremity: Positive for: Normal ROM. Negative for: Tenderness, Pedal Edema Neurologic/Psych: Positive for: Alert, parts facilitator II-XII, Oriented. Negative for: Motor/Sensory Deficits, Facial Droop - Laboratory Results Result Diagrams: 12/29/16 17:10 12/29/16 17:10 Interpretation Of Abn Labs: 13.7 wbc Urine dip results: Negative for: Nitrate - ECG O2 Sat by Pulse Oximetry: 98 Pulse Ox Interpretation: Normal - Progress ED Course And Treament: 1845: Dr. Taylor to take over care. FU on Ct and crisis eval. Disposition - Clinical Impression Clinical Impression: Abdominal pain - Patient ED Disposition Is Patient to be Admitted: No Counseled Patient/Family Regarding: Studies Performed, Diagnosis - Disposition Disposition: Transfer of Care Disposition Time: 18:44 Condition: STABLE Patient Signed Over To: Sohan Taylor
[2016-12-29 17:20] LABS: BASO # 0.1 K/uL (0.0-0.2); BASO % 0.8 % (0.0-2.0); EOS # 0.2 K/uL (0.0-0.7); EOS % 1.4 % (0.0-4.0); HEMOGLOBIN 13.3 g/dL (12.0-16.0); LYMPH # 1.8 K/uL (1.0-4.3); LYMPH % 13.5 % (20.0-40.0); MEAN CELL VOLUME 88.5 fl (81.0-99.0); MEAN CORPUSCULAR HEMOGLOBIN 28.7 pg (27.0-31.0); MEAN CORPUSCULAR HGB CONC 32.4 g/dL (33.0-37.0); MEAN PLATELET VOLUME 7.2 fl (7.2-11.7); MONO % 7.1 % (0.0-10.0); NEUT # 10.6 K/uL (1.8-7.0); NEUT % 77.2 % (50.0-75.0); RBC 4.63 Mil/uL (3.80-5.20); RED CELL DISTRIBUTION WIDTH 12.9 % (11.5-14.5); WHITE BLOOD COUNT 13.7 K/uL (4.8-10.8)
[2016-12-29 17:30] LABS: ALB/GLOB RATIO 1.4 (1.0-2.1); ALBUMIN 4.3 g/dL (3.5-5.0); ALT/SGPT 34 U/L (9-52); AST/SGOT 23 U/L (14-36); BLOOD UREA NITROGEN 18 mg/dl (7-17); GFR AFRICAN-AMERICAN 53; GFR NON-AFRICAN AMERICAN 44; LIPASE 155 U/L (23-300)
[2016-12-29 17:31] LABS: CALCIUM 10.1 mg/dL (8.4-10.2)
[2016-12-29 17:38] LABS: BARBITURATES, UR NEGATIVE (NEGATIVE); BENZODIAZEPINES, UR POSITIVE (NEGATIVE); OPIATES, UR NEGATIVE (NEGATIVE); PHENCYCLIDINE, UR NEGATIVE (NEGATIVE)
--- NOTE | 2016-12-29 19:29 | ED PDOC ---
"- Laboratory Results Result Diagrams: 12/29/16 17:10 12/29/16 17:10 - ECG O2 Sat by Pulse Oximetry: 98 Medical Decision Making Medical Decision Makin:00 Pt signed out to me by Dr. Marcela MD. Pending crisis evaluation EXAM DATE/TIME: 12/29/16 (4:44pm) COMPARISON: CT ABDOMEN PELVIS of 11/20/16 FINDINGS: Lower thorax: No acute findings. No pleural effusions. Cardiomegaly. ABDOMEN: Liver: Unremarkable. No masses. Gallbladder and bile ducts: Unremarkable. No calcified stones. No ductal dilatation. Pancreas: Unremarkable. No ductal dilatation. Spleen: Unremarkable. No splenomegaly. Adrenals: Redemonstration of left adrenal mass (2.4 cm size). Kidneys and ureters: Mild left hydroureteronephrosis. Small obstructing stone (2 -3 mm size) (axial image #74) at the left UV junction. Additional stones in the left kidney. Stable left renal cyst (2.2 cm size). Stomach and bowel: Unremarkable. No obstruction. No mucosal thickening. Appendix: No findings to suggest acute appendicitis. PELVIS: Bladder: Unremarkable. No stones. Reproductive: Unremarkable as visualized. SAJAN STEPHENS | Preliminary Radiology Report CHARGEMASTER ANALYST (QA) DISCREPANCY? If there is a discrepancy between the preliminary and final interpretation, please notify [employer] via [email or web address]. If you do not have access to our QA portal, call our QA team at [phone] CONFIDENTIALITY STATEMENT This report is intended only for the use of the referring physician, and only in accordance with law, If you received this in error, call [phone] Page 2 of 2 ABDOMEN and PELVIS: Intraperitoneal space: Unremarkable. No free air. No significant fluid collection. Bones/joints: No acute fracture nor dislocation. Soft tissues: Unremarkable. Vasculature: Unremarkable. No abdominal aortic aneurysm. Lymph nodes: Unremarkable. No enlarged lymph nodes. IMPRESSION: Mild left hydroureteronephrosis. Small obstructing stone (2-3 mm size) at the left UV junction. Additional stones in the left kidney. Stable left renal cyst (2.2 cm size). Left adrenal mass (2.4 cm size) (unchanged from 6 weeks ago). Thank you for allowing us to participate in the care of your patient. Dictated and Authenticated by: Cierra Mcmillan MD 12/29/2016 6:59 PM Eastern Time ([place] & [place]) Disposition Doctor Will See Patient In The: Office Counseled Patient/Family Regarding: Studies Performed, Diagnosis, Need For Followup - Clinical Impression Clinical Impression: Abdominal pain, Ureteral calculi, Ureteral calculus, Depression - POA Present On Arrival: None - Disposition Referrals: Jamaal Ramos [Primary Care Provider] - Jennifer Cha MD [Medical Doctor] - Disposition: Routine/Home Disposition Time: 20:21 Condition: GOOD Additional Instructions: Take your medications as instructed. Follow up with your PCP in 2-3 days. Prescriptions: Ciprofloxacin HCl [Cipro] 500 mg PO BID #10 tablet Tamsulosin [Flomax] 0.4 mg PO DAILY #7 cap Instructions: Ureteral Stones (ED) Print Language: TELUGU"
--- NOTE | 2016-12-30 06:58 | CT ---
PROCEDURE: CT Abdomen and Pelvis without intravenous contrast HISTORY: R/O stone COMPARISON: None. TECHNIQUE: Technique. Contrast Dose: Radiation dose: Total exam DLP = 1011 mGy-cm. This CT exam was performed using one or more of the following dose reduction techniques: Automated exposure control, adjustment of the mA and/or kV according to patient size, and/or use of iterative reconstruction technique. FINDINGS: LOWER THORAX: Unremarkable. LIVER: Unremarkable. No gross lesion or ductal dilatation. GALLBLADDER AND BILE DUCTS: Unremarkable. PANCREAS: Unremarkable. No gross lesion or ductal dilatation. SPLEEN: Unremarkable. ADRENALS: 2.2 centimeter left adrenal mass. No mass. KIDNEYS AND URETERS: Left nephrolithiasis with 2 millimeter left bladder calculus and mild left hydroureter/hydronephrosis. Left lower pole renal cyst. VASCULATURE: Unremarkable. No aortic aneurysm. BOWEL: Colonic diverticulosis.. No obstruction. No gross mural thickening. APPENDIX: Unremarkable. Normal appendix. PERITONEUM: Unremarkable. No free fluid. No free air. LYMPH NODES: Unremarkable. No enlarged lymph nodes. BLADDER: Unremarkable. REPRODUCTIVE: Unremarkable. BONES: No acute fracture. OTHER FINDINGS: None. IMPRESSION: Left nephrolithiasis with 2 millimeter left bladder calculus and mild left hydroureter/hydronephrosis. Left adrenal mass.
== END 2016-12-29 20:34 | disposition home or self-care (01) ==
LOC: H.ER 16:18
DX: N13.2 Hydronephrosis with renal and ureteral calculous obstruction (principal); F32.9 Major depressive disorder, single episode, unspecified; N28.1 Cyst of kidney, acquired; N20.2 Calculus of kidney with calculus of ureter; N21.0 Calculus in bladder
CPT/HCPCS: 74176; 80053; 83690; 85025; 96361; 96374; 99284; G0480; J1885; J7040

== ENCOUNTER 2017-01-06 07:48 | Emergency (ER) | payer MEDICARE, MEDICAID ==
--- NOTE | 2017-01-06 08:18 | ED PDOC ---
HPI: Abdomen Time Seen by Provider: 01/06/17 07:54 Chief Complaint (Provider): Diffuse abdominal and lower back pain History Per: Patient History/Exam Limitations: no limitations Onset/Duration Of Symptoms: Days (x 2 months) Current Symptoms Are (Timing): Still Present Location Of Pain/Discomfort: Diffuse Associated Symptoms: Nausea, Back Pain. denies: Fever, Chills, Vomiting, Urinary Symptoms Additional Complaint(s): Wendy is a 76-year-old female with past medical history of kidney stones s/p removal 2 months ago, who presents to the ED for complaints of diffuse abdominal pain associated with nausea and bilateral lower back pain for the past 2 months. Denies any associated fever, chills, vomiting, or dysuria. Patient is followed by PMD and Urologist for above symptoms, but no resolution. Also has a history of hypertension, hypercholesterolemia, and depression. PMD: Jamaal Ramos Past Medical History Reviewed: Historical Data, Nursing Documentation, Vital Signs Vital Signs: Last Vital Signs Temp 97 F L 01/06/17 08:00 Pulse 108 H 01/06/17 08:00 Resp 19 01/06/17 08:00 BP 160/92 H 01/06/17 08:00 Pulse Ox 97 01/06/17 08:00 - Medical History PMH: Anxiety, Arthritis, Bipolar Disorder, COPD, Depression, Gastritis, HTN, Hypercholesterolemia Denies: Diabetes, Hepatitis, HIV, Chronic Kidney Disease, Seizures, Sexually Transmitted Disease - Surgical History Surgical History: Tonsillectomy Denies: Pacemaker Other surgeries: Kidney stone removal - Family History Family History: States: Unknown Family Hx - Social History Current smoker - smoking cessation education provided: No Alcohol: None Drugs: Denies - Immunization History Hx Influenza Vaccination: Yes Hx Pneumococcal Vaccination: No - Home Medications Home Medications: Ambulatory Orders Medication Instructions Recorded Alprazolam [Xanax] 0.5 mg PO TID 12/29/16 Amlodipine Besylate/Benazepril 1 tab PO QAM 12/29/16 [Amlodipine-Benazepril 10-20 mg] Carvedilol [Coreg] 25 mg PO BID 12/29/16 Ciprofloxacin HCl [Cipro] 500 mg PO BID #10 tablet 12/29/16 Dexlansoprazole [Dexilant] 60 mg PO QAM 12/29/16 Levomilnacipran HCl [Fetzima] 120 mg PO DAILY 12/29/16 Linaclotide [Linzess] 145 mcg PO DAILY 12/29/16 Rosuvastatin Calcium [Crestor] 10 mg PO HS 12/29/16 Tamsulosin [Flomax] 0.4 mg PO DAILY #7 cap 12/29/16 traMADol [Ultram] 50 mg PO BID 12/29/16 Ciprofloxacin HCl [Cipro] 500 mg PO BID #20 tab 01/06/17 traMADol [Ultram] 50 mg PO Q8 #10 tab 01/06/17 - Allergies Allergies/Adverse Reactions: Allergies Allergy/AdvReac Type Severity Reaction Status Date / Time No Known Allergies Allergy Verified 12/29/16 16:21 Review of Systems ROS Statement: Except As Marked, All Systems Reviewed And Found Negative Constitutional: Negative for: Fever, Chills Gastrointestinal: Positive for: Nausea, Abdominal Pain. Negative for: Vomiting Genitourinary Female: Negative for: Dysuria Musculoskeletal: Positive for: Back Pain (lower) Physical Exam - Reviewed Nursing Documentation Reviewed: Yes Vital Signs Reviewed: Yes - Physical Exam Appears: Positive for: Non-toxic, No Acute Distress Head Exam: Positive for: ATRAUMATIC, NORMAL INSPECTION, NORMOCEPHALIC Skin: Positive for: Normal Color, Warm, Dry Eye Exam: Positive for: EOMI, Normal appearance, PERRL Neck: Positive for: Normal, Painless ROM, Supple Cardiovascular/Chest: Positive for: Regular Rate, Rhythm. Negative for: Murmur Respiratory: Positive for: Normal Breath Sounds. Negative for: Accessory Muscle Use, Respiratory Distress Gastrointestinal/Abdominal: Positive for: Soft. Negative for: Tenderness Back: Positive for: L CVA Tenderness (mild), R CVA Tenderness (mild) Extremity: Positive for: Normal ROM, Capillary Refill (< 2 sec). Negative for: Pedal Edema, Deformity Neurologic/Psych: Positive for: Alert, Oriented - Laboratory Results Result Diagrams: 01/06/17 08:10 01/06/17 08:10 Medical Decision Making Medical Decision Making: Time: 08:09 Initial Plan: --CMP --CBC --ED urine dipstick --Pending CT Abdomen/Pelvis w/o contrast Time: 10:04 --Toradol 30 mg IV Time: 10:07 CT Abdomen/Pelvis: FINDINGS: LOWER THORAX: Unremarkable. LIVER: Unremarkable. No gross lesion or ductal dilatation. GALLBLADDER AND BILE DUCTS: Unremarkable. PANCREAS: Unremarkable. No gross lesion or ductal dilatation. SPLEEN: Unremarkable. ADRENALS: 2.5 cm left adrenal nodule likely an adenoma.. KIDNEYS AND URETERS: Bilateral nephrolithiasis. 2 cm left renal cyst... No hydronephrosis. No solid mass. VASCULATURE: Unremarkable. No aortic aneurysm. BOWEL: Unremarkable. No obstruction. No gross mural thickening. APPENDIX: Unremarkable. Normal appendix. PERITONEUM: Unremarkable. No free fluid. No free air. LYMPH NODES: Unremarkable. No enlarged lymph nodes. BLADDER: Unremarkable. REPRODUCTIVE: Unremarkable. BONES: No acute fracture. OTHER FINDINGS: None. IMPRESSION: Bilateral nephrolithiasis. Scribe Attestation: Documented by Barbara Perera, acting as a scribe for Lewis Hunter MD Provider Scribe Attestation: All medical record entries made by the Scribe were at my direction and personally dictated by me. I have reviewed the chart and agree that the record accurately reflects my personal performance of the history, physical exam, medical decision making, and the department course for this patient. I have also personally directed, reviewed, and agree with the discharge instructions and disposition. Disposition - Clinical Impression Clinical Impression: Nephrolithiasis - Patient ED Disposition Is Patient to be Admitted: No Counseled Patient/Family Regarding: Studies Performed, Diagnosis, Need For Followup, Rx Given - Disposition Referrals: Jamaal Ramos [Primary Care Provider] - Jennifer Cha MD [Medical Doctor] - Disposition: Routine/Home Disposition Time: 11:06 Condition: FAIR Prescriptions: Ciprofloxacin HCl [Cipro] 500 mg PO BID #20 tab traMADol [Ultram] 50 mg PO Q8 #10 tab Instructions: Kidney Stones (ED)
[2017-01-06 09:33] LABS: BASO % 0.5 % (0.0-2.0); EOS # 0.2 K/uL (0.0-0.7); HEMOGLOBIN 13.8 g/dL (12.0-16.0); LYMPH # 1.8 K/uL (1.0-4.3); LYMPH % 23.6 % (20.0-40.0); MEAN CELL VOLUME 87.8 fl (81.0-99.0); MEAN CORPUSCULAR HEMOGLOBIN 29.2 pg (27.0-31.0); MEAN CORPUSCULAR HGB CONC 33.3 g/dL (33.0-37.0); MEAN PLATELET VOLUME 7.4 fl (7.2-11.7); MONO # 0.5 K/uL (0.0-0.8); NEUT # 5.1 K/uL (1.8-7.0); NEUT % 65.9 % (50.0-75.0); RBC 4.74 Mil/uL (3.80-5.20); RED CELL DISTRIBUTION WIDTH 13.4 % (11.5-14.5); WHITE BLOOD COUNT 7.8 K/uL (4.8-10.8)
[2017-01-06 09:58] LABS: ALB/GLOB RATIO 1.4 (1.0-2.1); ALBUMIN 4.4 g/dL (3.5-5.0); ALT/SGPT 31 U/L (9-52); AST/SGOT 21 U/L (14-36); BLOOD UREA NITROGEN 11 mg/dl (7-17); CALCIUM 10.3 mg/dL (8.4-10.2); GFR AFRICAN-AMERICAN > 60; GFR NON-AFRICAN AMERICAN > 60
--- NOTE | 2017-01-06 10:09 | CT ---
PROCEDURE: CT Abdomen and Pelvis without intravenous contrast HISTORY: r/o kidney stone COMPARISON: None. TECHNIQUE: Technique. Contrast Dose: Radiation dose: Total exam DLP = mGy-cm. This CT exam was performed using one or more of the following dose reduction techniques: Automated exposure control, adjustment of the mA and/or kV according to patient size, and/or use of iterative reconstruction technique. FINDINGS: LOWER THORAX: Unremarkable. LIVER: Unremarkable. No gross lesion or ductal dilatation. GALLBLADDER AND BILE DUCTS: Unremarkable. PANCREAS: Unremarkable. No gross lesion or ductal dilatation. SPLEEN: Unremarkable. ADRENALS: 2.5 cm left adrenal nodule likely an adenoma.. KIDNEYS AND URETERS: Bilateral nephrolithiasis. 2 cm left renal cyst... No hydronephrosis. No solid mass. VASCULATURE: Unremarkable. No aortic aneurysm. BOWEL: Unremarkable. No obstruction. No gross mural thickening. APPENDIX: Unremarkable. Normal appendix. PERITONEUM: Unremarkable. No free fluid. No free air. LYMPH NODES: Unremarkable. No enlarged lymph nodes. BLADDER: Unremarkable. REPRODUCTIVE: Unremarkable. BONES: No acute fracture. OTHER FINDINGS: None. IMPRESSION: Bilateral nephrolithiasis..
[2017-01-06 11:29] VITALS: BP 156/83; PULSE 98; RESP 22; TEMP 98.3; O2SAT 98
== END 2017-01-06 11:29 | disposition home or self-care (01) ==
LOC: SUPCPDRO 07:48 → H.ER 07:48
DX: N20.0 Calculus of kidney (principal); Z87.442 Personal history of urinary calculi; I10 Essential (primary) hypertension; E78.00 Pure hypercholesterolemia, unspecified
CPT/HCPCS: 74176; 80053; 85025; 96374; 99283; J1885

== ENCOUNTER 2017-01-08 21:03 | Emergency (ER) | payer MEDICARE, MEDICAID ==
[2017-01-08 21:12] VITALS: RESP 16; TEMP 98.8
[2017-01-08] MEDS ORDERED: Sodium Chloride 0.9% 1,000 ML IV STA (21:48)
[2017-01-08 21:51] LABS: RBC URINE < 1 /hpf (0-3); URINE BILIRUBIN NEGATIVE (NEGATIVE); URINE COLOR STRAW (YELLOW); URINE GLUCOSE (UA) NEG (Normal); URINE KETONE NEGATIVE (NEGATIVE); URINE LEUKOCYTE ESTERASE SMALL Leu/uL (Negative); URINE PROTEIN NEGATIVE (NEGATIVE); URINE UROBILINOGEN 0.2-1.0 mg/dL (0.2-1.0); WBC URINE 3 /hpf (0-5)
[2017-01-08 21:56] LABS: URINE BLOOD SMALL (NEGATIVE)
--- NOTE | 2017-01-08 21:56 | ED PDOC ---
HPI: Abdomen Time Seen by Provider: 01/08/17 21:26 Chief Complaint (Nursing): Abdominal Pain Chief Complaint (Provider): abdominal pain History Per: Patient History/Exam Limitations: no limitations Onset/Duration Of Symptoms: Days (1 month) Current Symptoms Are (Timing): Still Present Location Of Pain/Discomfort: Diffuse Quality Of Discomfort: Cramping, "Pain" Additional History Per: Patient Additional Complaint(s): 76 y/o female presents with diffuse abdominal/flank/back pain x 1 month. Patient states symptoms started after having a kidney stone removed with lithotripsy. Patient with multiple ED visits for same since then, followed up with Dr. Cha yesterday and was advised to see a GI for further eval of ongoing symptoms, and was prescribed tramadol but patient states it is not helping with the pain. Denies fever, nausea/vomiting, chest pain, shortness of breath, palpitations, changes in bowel movements, dysuria, hematuria. Past Medical History Reviewed: Historical Data, Nursing Documentation, Vital Signs Vital Signs: Last Vital Signs Temp 98.8 F 01/08/17 21:10 Pulse 82 01/08/17 23:20 Resp 16 01/08/17 23:20 BP 125/80 01/08/17 23:20 Pulse Ox 99 01/08/17 23:20 - Medical History PMH: Anxiety, Arthritis, Bipolar Disorder, COPD, Depression, Gastritis, HTN, Hypercholesterolemia, Kidney Stones Denies: Diabetes, Hepatitis, HIV, Chronic Kidney Disease, Seizures, Sexually Transmitted Disease - Surgical History Surgical History: Tonsillectomy Denies: Pacemaker - Family History Family History: States: Unknown Family Hx - Immunization History Hx Influenza Vaccination: Yes Hx Pneumococcal Vaccination: No - Home Medications Home Medications: Ambulatory Orders Medication Instructions Recorded Alprazolam [Xanax] 0.5 mg PO TID 12/29/16 Amlodipine Besylate/Benazepril 1 tab PO QAM 12/29/16 [Amlodipine-Benazepril 10-20 mg] Carvedilol [Coreg] 25 mg PO BID 12/29/16 Ciprofloxacin HCl [Cipro] 500 mg PO BID #10 tablet 12/29/16 Dexlansoprazole [Dexilant] 60 mg PO QAM 12/29/16 Levomilnacipran HCl [Fetzima] 120 mg PO DAILY 12/29/16 Linaclotide [Linzess] 145 mcg PO DAILY 12/29/16 Rosuvastatin Calcium [Crestor] 10 mg PO HS 12/29/16 Tamsulosin [Flomax] 0.4 mg PO DAILY #7 cap 12/29/16 traMADol [Ultram] 50 mg PO BID 12/29/16 Ciprofloxacin HCl [Cipro] 500 mg PO BID #20 tab 01/06/17 traMADol [Ultram] 50 mg PO Q8 #10 tab 01/06/17 Naproxen [Naprosyn Tab] 375 mg PO BID PRN #20 tab 01/08/17 - Allergies Allergies/Adverse Reactions: Allergies Allergy/AdvReac Type Severity Reaction Status Date / Time No Known Allergies Allergy Verified 12/29/16 16:21 Review of Systems ROS Statement: Except As Marked, All Systems Reviewed And Found Negative Gastrointestinal: Positive for: Abdominal Pain Musculoskeletal: Positive for: Back Pain Physical Exam - Reviewed Nursing Documentation Reviewed: Yes Vital Signs Reviewed: Yes - Physical Exam Appears: Positive for: Well, Non-toxic, No Acute Distress Head Exam: Positive for: ATRAUMATIC, NORMAL INSPECTION, NORMOCEPHALIC Skin: Positive for: Normal Color Eye Exam: Positive for: Normal appearance ENT: Positive for: Normal ENT Inspection Cardiovascular/Chest: Positive for: Regular Rate, Rhythm Respiratory: Positive for: Normal Breath Sounds Gastrointestinal/Abdominal: Positive for: Normal Exam, Bowel Sounds, Soft Back: Positive for: Normal Inspection Extremity: Positive for: Normal ROM Neurologic/Psych: Positive for: Alert, Oriented - Laboratory Results Result Diagrams: 01/08/17 22:00 01/08/17 22:00 - ECG O2 Sat by Pulse Oximetry: 98 - Progress ED Course And Treament: labs, urine, IV fluids, IV toradol Case discussed with Dr. Cha, who states he saw patient in office yesterday and as per CT 2 days ago, patient has nephrolithiasis without hydro and therefore no emergent urological intervention needed at this time. Advised patient yesterday to see GI for further eval. Patient tolerating PO. Patient educated on findings, discharged with rx Naproxen. Advised follow up PMD, GI, and urology as needed. Continue current medications. Return to ED for worsening/concerning symptoms. Disposition - Clinical Impression Clinical Impression: Abdominal pain, Flank pain, History of kidney stones - Patient ED Disposition Is Patient to be Admitted: No Counseled Patient/Family Regarding: Studies Performed, Diagnosis, Need For Followup, Rx Given - Disposition Referrals: Jimmie Mora MD [Staff Provider] - Jennifer Cha MD [Medical Doctor] - Jamaal Ramos [Staff Provider] - Disposition: Routine/Home Disposition Time: 23:08 Condition: IMPROVED Prescriptions: Naproxen [Naprosyn Tab] 375 mg PO BID PRN #20 tab PRN Reason: Pain, Moderate (4-7) Instructions: Abdominal Pain (ED), Flank Pain (ED)
[2017-01-08 22:05] LABS: BASO # 0.1 K/uL (0.0-0.2); BASO % 0.9 % (0.0-2.0); EOS # 0.4 K/uL (0.0-0.7); EOS % 3.8 % (0.0-4.0); HEMATOCRIT 39.5 % (34.0-47.0); LYMPH # 3.2 K/uL (1.0-4.3); LYMPH % 30.5 % (20.0-40.0); MEAN CELL VOLUME 88.4 fl (81.0-99.0); MEAN CORPUSCULAR HEMOGLOBIN 29.4 pg (27.0-31.0); MEAN CORPUSCULAR HGB CONC 33.3 g/dL (33.0-37.0); MEAN PLATELET VOLUME 7.1 fl (7.2-11.7); MONO # 0.9 K/uL (0.0-0.8); MONO % 8.7 % (0.0-10.0); NEUT # 5.8 K/uL (1.8-7.0); NEUT % 56.1 % (50.0-75.0); NRBC % 0.1 % (0.0-0.0); WHITE BLOOD COUNT 10.4 K/uL (4.8-10.8)
[2017-01-08 22:23] LABS: ALB/GLOB RATIO 1.5 (1.0-2.1); ALKALINE PHOSPHATASE 83 U/L (38-126); ALT/SGPT 35 U/L (9-52); AST/SGOT 19 U/L (14-36); BILIRUBIN,TOTAL 0.4 mg/dl (0.2-1.3); BLOOD UREA NITROGEN 13 mg/dl (7-17); CALCIUM 10.2 mg/dL (8.4-10.2); CARBON DIOXIDE 25 mmol/L (22-30); CHLORIDE 102 mmol/L (98-107); GFR AFRICAN-AMERICAN > 60; GLUCOSE,RANDOM 119 mg/dL (65-105); LIPASE 240 U/L (23-300); POTASSIUM 4.4 MMOL/L (3.6-5.0); SODIUM 137 mmol/l (132-148)
[2017-01-08 23:20] VITALS: BP 125/80; PULSE 82
[2017-01-08 23:27] VITALS: O2SAT 98
--- NOTE | 2017-01-09 11:44 | CARD ---
APPROVED REPORT EKG Measurement Heart [id number] IN [id number] <Conclusion> Normal sinus rhythm Left axis deviation Possible Anterolateral infarct, age undetermined Abnormal ECG
== END 2017-01-08 23:45 | disposition home or self-care (01) ==
LOC: H.ER 21:03
DX: R10.9 Unspecified abdominal pain (principal); N20.0 Calculus of kidney; F31.9 Bipolar disorder, unspecified; F41.9 Anxiety disorder, unspecified; I10 Essential (primary) hypertension; J44.9 Chronic obstructive pulmonary disease, unspecified
CPT/HCPCS: 80053; 81003; 83690; 85025; 87086; 93005; 96361; 96374; 99283; J1885; J2405; J7040

== ENCOUNTER 2017-01-15 15:20 | Emergency (ER) | payer MEDICARE, MEDICAID ==
[2017-01-15 15:32] VITALS: TEMP 98.2
[2017-01-15] MEDS ORDERED: Sodium Chloride 0.9% 1,000 ML IV STA (16:37)
[2017-01-15 17:06] LABS: BASO # 0.1 K/uL (0.0-0.2); BASO % 1.1 % (0.0-2.0); EOS # 0.4 K/uL (0.0-0.7); EOS % 4.3 % (0.0-4.0); HEMATOCRIT 39.3 % (34.0-47.0); LYMPH # 3.1 K/uL (1.0-4.3); LYMPH % 34.8 % (20.0-40.0); MEAN CELL VOLUME 89.1 fl (81.0-99.0); MEAN CORPUSCULAR HEMOGLOBIN 29.5 pg (27.0-31.0); MEAN CORPUSCULAR HGB CONC 33.1 g/dL (33.0-37.0); MEAN PLATELET VOLUME 7.6 fl (7.2-11.7); MONO # 0.7 K/uL (0.0-0.8); MONO % 7.8 % (0.0-10.0); NEUT # 4.6 K/uL (1.8-7.0); RED CELL DISTRIBUTION WIDTH 13.5 % (11.5-14.5); WHITE BLOOD COUNT 8.8 K/uL (4.8-10.8)
--- NOTE | 2017-01-15 17:12 | ED PDOC ---
HPI: Abdomen Chief Complaint (Provider): abdominal pain, flank pain History Per: Patient Onset/Duration Of Symptoms: Intermittent Episodes, Persistent Outside of [place] travel?: No Current Symptoms Are (Timing): Still Present Pain Scale Rating Of: 8 Location Of Pain/Discomfort: Diffuse, Epigastric Quality Of Discomfort: Cramping, Other (burning) Associated Symptoms: Nausea, Back Pain, Urinary Symptoms. denies: Fever, Chills , Vomiting, Diarrhea, Chest Pain, Constipation Last Bowel Movement: Yesterday <Pia Dunne - Last Filed: 01/15/17 19:29> <Diana Liu - Last Filed: 01/16/17 14:19> Time Seen by Provider: 01/15/17 15:34 Chief Complaint (Nursing): Abdominal Pain Additional Complaint(s): Pt is a 76 yo F with PMH kidney stones, HLD, HTN, depression who presented to the ED due to persistent abdominal and back pain. Pt has been seen in the ED on 12/29, 01/06 and 01/08. Pt states that about a month ago she saw urologist Dr. Cha, who diagnosed her with kidney stones; she underwent lithotripsy at [facility] , but the pain has not resolved since then. Pt describes pain as deep, cramping , burning, 9/10, and radiating to the flanks. Associated sx: nausea, dizziness, weakness. Pt also states that she has tried taking tramadol (presribed by urologist) and naprosyn (prescribed at ED visit), but her pain did not resolve. Denies chest pain, shortness of breath, diarrhea, vomiting, constipation, problems voiding urine or stooling, as well as denies blood in either urine or stool. At pt's ED visit on 12/29 and 01/06 abdomen/pelvis CT performed; on 12/29 CT showed left nephrolithasis with 2mm left bladder calculus and mild left hydroureter/ hydronephrosis. On 01/06, CT showed bilateral hydronephrosis. showed bilateral nephrolithiasis. As per documentation on pt's visit 01/08, during pt's visit to ED, Dr. Cha was spoken: said that he saw pt in office the day before (01/07) , and based on results of CT on 01/06 (no hydronephrosis), no emergent urological intervention was needed at this time, and advised pt to see GI for further eval. Pt has appt with GI Dr. Abby Galloway 01/22. (Pia Dunne) Supervising Attending Note - Supervising Attending Note The Documented history was done by the: Physician Civil Lawyer, Attending Physician The documented physical exam was done by the: Physician Civil Lawyer, Attending Physician - Attestation: I have personally seen and examined this patient.: Yes I have fully participated in the care of the patient.: Yes I have reviewed all pertinent clinical information: Yes <Diana Liu - Last Filed: 01/16/17 14:19> Past Medical History - Medical History PMH: Anxiety, Arthritis, Bipolar Disorder, COPD, Depression, Gastritis, HTN, Hypercholesterolemia, Kidney Stones Denies: Diabetes, Hepatitis, HIV, Chronic Kidney Disease, Seizures, Sexually Transmitted Disease - Surgical History Surgical History: Tonsillectomy Denies: Pacemaker - Family History Family History: States: Unknown Family Hx - Living Arrangements Living Arrangements: With Family - Social History Current smoker - smoking cessation education provided: No (never smoker) Alcohol: None Drugs: Denies - Immunization History Hx Influenza Vaccination: Yes Hx Pneumococcal Vaccination: No <Pia Dunne - Last Filed: 01/15/17 19:29> <Diana Liu - Last Filed: 01/16/17 14:19> Vital Signs: Last Vital Signs Temp 98.2 F 01/15/17 19:34 Pulse 82 01/15/17 19:34 Resp 18 01/15/17 19:34 BP 118/65 01/15/17 19:34 Pulse Ox 98 01/15/17 19:34 - Home Medications Home Medications: Ambulatory Orders Medication Instructions Recorded Alprazolam [Xanax] 0.5 mg PO TID 12/29/16 Amlodipine Besylate/Benazepril 1 tab PO QAM 12/29/16 [Amlodipine-Benazepril 10-20 mg] Carvedilol [Coreg] 25 mg PO BID 12/29/16 Ciprofloxacin HCl [Cipro] 500 mg PO BID #10 tablet 12/29/16 Dexlansoprazole [Dexilant] 60 mg PO QAM 12/29/16 Levomilnacipran HCl [Fetzima] 120 mg PO DAILY 12/29/16 Linaclotide [Linzess] 145 mcg PO DAILY 12/29/16 Rosuvastatin Calcium [Crestor] 10 mg PO HS 12/29/16 Tamsulosin [Flomax] 0.4 mg PO DAILY #7 cap 12/29/16 traMADol [Ultram] 50 mg PO BID 12/29/16 Ciprofloxacin HCl [Cipro] 500 mg PO BID #20 tab 01/06/17 traMADol [Ultram] 50 mg PO Q8 #10 tab 01/06/17 Naproxen [Naprosyn Tab] 375 mg PO BID PRN #20 tab 01/08/17 Dicyclomine [Bentyl] 20 mg PO BID PRN #30 tab 01/15/17 - Allergies Allergies/Adverse Reactions: Allergies Allergy/AdvReac Type Severity Reaction Status Date / Time No Known Allergies Allergy Verified 12/29/16 16:21 Review of Systems ROS Statement: Except As Marked, All Systems Reviewed And Found Negative Constitutional: Positive for: Weakness Gastrointestinal: Positive for: Nausea, Abdominal Pain Neurological: Positive for: Dizziness <Pia Dunne - Last Filed: 01/15/17 19:29> Physical Exam - Reviewed Vital Signs Reviewed: Yes - Physical Exam Appears: Positive for: Non-toxic, No Acute Distress Head Exam: Positive for: ATRAUMATIC, NORMAL INSPECTION Skin: Positive for: Warm, Dry Eye Exam: Positive for: Normal appearance, EOMI, PERRL ENT: Positive for: Other (mucus membranes appear dry). Negative for: Pharyngeal Erythema, Tonsillar Exudate Neck: Positive for: Normal, Painless ROM, Supple Cardiovascular/Chest: Positive for: Regular Rate, Rhythm. Negative for: Murmur Respiratory: Positive for: Normal Breath Sounds. Negative for: Accessory Muscle Use, Wheezing, Respiratory Distress Gastrointestinal/Abdominal: Positive for: Bowel Sounds, Soft, Tenderness. Negative for: Mass, Distended, Guarding Back: Positive for: L CVA Tenderness, R CVA Tenderness Neurologic/Psych: Positive for: Alert, Oriented <Pia Dunne - Last Filed: 01/15/17 19:29> - Laboratory Results Result Diagrams: 01/15/17 16:52 01/15/17 16:58 - ECG O2 Sat by Pulse Oximetry: 99 <Pia Dunne - Last Filed: 01/15/17 19:29> - Laboratory Results Result Diagrams: 01/15/17 16:52 01/15/17 16:58 <Diana Liu - Last Filed: 01/16/17 14:19> - Progress ED Course And Treament: Patient seen, evaluated, examined. Pt may be dehydrated based on low bp and dry mucus membranes. Initial plan: 16:40 CBC CMP Lactate Lipase Renal U/s Hydration, 1L NS ketorolac bentyl acetaminophen Dr. Liu discussed case with Dr. Cha, who agrees with plan to do renal u/ s to look for obstructing stone. 17:00 Urine dip + leukocyte esterase Blood/urine cx ordered Lactate 3.6 17:45 BUN 18, continue with hydration of liter of NS Lipase wnl 19:00 Renal u/s: no obstructing calculus or hydronephrosis identified. Calcification seen on CT performed 01/06 are not appreciated in today's sono view. Lactate 3.3. Pt's BP improved to 119/70. (Pia Dunne) Medical Decision Making <Pia Dunne - Last Filed: 01/15/17 19:29> <Diana Liu - Last Filed: 01/16/17 14:19> Medical Decision Making: Pt appears to have been dehydrated; BP improved with hydration, pain mildly improved with bentyl. Lactate trending down with hydration, low suspicion for infectious cause. Pt to be d/c with bentyl for pain and strongly advised to keep appt with GI. ( Pia Dunne) Disposition - Patient ED Disposition Is Patient to be Admitted: No - Disposition Disposition: Routine/Home Disposition Time: 19:26 <Pia Dunne - Last Filed: 01/15/17 19:29> <Diana Liu - Last Filed: 01/16/17 14:19> - Clinical Impression Clinical Impression: Abdominal pain, Dehydration - Disposition Condition: STABLE Additional Instructions: FOLLOW UP WITH GASTROENTEROLOGY SCHEDULED NEXT WEEK CONTINUE NAPROSYN (WITH FOOD) FOR PAIN Prescriptions: Dicyclomine [Bentyl] 20 mg PO BID PRN #30 tab PRN Reason: abdominal pain Instructions: Abdominal Pain (ED), Flank Pain (ED), Kidney Cyst (ED) Forms: [employer] (Slovak)
[2017-01-15 17:20] LABS: ALB/GLOB RATIO 1.4 (1.0-2.1); ALKALINE PHOSPHATASE 83 U/L (38-126); ALT/SGPT 23 U/L (9-52); AST/SGOT 28 U/L (14-36); BILIRUBIN,TOTAL 0.8 mg/dl (0.2-1.3); BLOOD UREA NITROGEN 18 mg/dl (7-17); CALCIUM 10.2 mg/dL (8.4-10.2); CARBON DIOXIDE 23 mmol/L (22-30); CHLORIDE 102 mmol/L (98-107); GFR AFRICAN-AMERICAN > 60; GLUCOSE,RANDOM 95 mg/dL (65-105); LIPASE 200 U/L (23-300); RBC URINE 2 /hpf (0-3); SODIUM 137 mmol/l (132-148); TOTAL PROTEIN 7.4 G/DL (6.3-8.2); URINE BACTERIA RARE (<OCC); URINE BILIRUBIN NEGATIVE (NEGATIVE); URINE BLOOD NEGATIVE (NEGATIVE); URINE COLOR YELLOW (YELLOW); URINE GLUCOSE (UA) NEG (Normal); URINE KETONE NEGATIVE (NEGATIVE); URINE LEUKOCYTE ESTERASE LARGE Leu/uL (Negative); URINE PROTEIN 30 mg/dL (NEGATIVE); URINE UROBILINOGEN 0.2-1.0 mg/dL (0.2-1.0); WBC URINE 23 /hpf (0-5)
[2017-01-15 17:22] LABS: POTASSIUM 5.2 MMOL/L (3.6-5.0)
--- NOTE | 2017-01-15 18:47 | US ---
PROCEDURE: Ultrasound of the Kidneys HISTORY: bilateral flank pain h/o kidney stone COMPARISON: CT abdomen and pelvis without oral or IV contrast performed 01/06/17 TECHNIQUE: Sonogram of the kidneys. FINDINGS: RIGHT KIDNEY: Measures: 11.1 x 4.4 x 5.1 cm. No obstructing calculus, hydronephrosis, or renal cyst identified. LEFT KIDNEY: Measures: 11.5 x 4.4 x 5.7 cm. No obstructing calculus or hydronephrosis identified. Calcification seen on CT performed 01/06/17 are not appreciated on the today's submitted sonographic views. 2.5 x 2.1 x 3.1 cm rounded anechoic avascular structure within the mid to lower pole compatible with a cyst. OTHER FINDINGS: Incidental note is made of echogenic hepatic parenchyma. Echogenic liver may be seen in setting of hepatic parenchymal disease or fatty infiltration. IMPRESSION: 2.5 x 3.1 x 3.1 cm left mid to lower pole renal cyst. Incidental note is made of echogenic hepatic parenchyma. Echogenic liver may be seen in setting of hepatic parenchymal disease or fatty infiltration.
[2017-01-15 18:58] LABS: VENOUS BLOOD GAS BASE EXCESS -1.2 mmol/L (0.0-2.0); VENOUS BLOOD GAS PCO2 39 mmHg (40-60); VENOUS BLOOD PH 7.39 (7.32-7.43)
[2017-01-15 19:35] VITALS: BP 118/65; PULSE 82; RESP 18; O2SAT 98
== END 2017-01-15 20:00 | disposition home or self-care (01) ==
LOC: H.ER 15:20
DX: E86.0 Dehydration (principal); R42 Dizziness and giddiness; N21.0 Calculus in bladder; N20.0 Calculus of kidney; N28.1 Cyst of kidney, acquired; F31.9 Bipolar disorder, unspecified; F41.9 Anxiety disorder, unspecified; I10 Essential (primary) hypertension
CPT/HCPCS: 76770; 80053; 81003; 82803; 83605; 83690; 85025; 87040; 87086; 96374; 99283; J1885; J7040

== ENCOUNTER 2017-02-03 12:59 | Emergency (ER) | payer MEDICARE, MEDICAID ==
[2017-02-03 13:17] VITALS: TEMP 97.7; O2SAT 98
[2017-02-03] MEDS ORDERED: Sodium Chloride 0.9% 500 ML IV ONE (13:32)
--- NOTE | 2017-02-03 13:36 | ED PDOC ---
HPI: Back Time Seen by Provider: 02/03/17 13:34 Chief Complaint (Nursing): Back Pain Chief Complaint (Provider): abdominal discomfort burning History Per: Patient (76 y/o female h/o nephrolithiasis in past with lithotripsy here repeated ED visits for evaluation of abdominal discomfort with burning uncontrolled by tramadol/naproxen. Denies any dysuria/hematuria/fever/ vomiting. ) Past Medical History Reviewed: Historical Data, Nursing Documentation, Vital Signs Vital Signs: Last Vital Signs Temp 97.7 F 02/03/17 13:14 Pulse 95 H 02/03/17 13:14 Resp 16 02/03/17 13:14 BP 152/97 H 02/03/17 13:14 Pulse Ox 98 02/03/17 13:14 - Medical History PMH: Anxiety, Arthritis, Bipolar Disorder, COPD, Depression, Gastritis, HTN, Hypercholesterolemia, Kidney Stones Denies: Diabetes, Hepatitis, HIV, Chronic Kidney Disease, Seizures, Sexually Transmitted Disease - Surgical History Surgical History: Tonsillectomy Denies: Pacemaker - Family History Family History: States: Unknown Family Hx - Immunization History Hx Influenza Vaccination: Yes Hx Pneumococcal Vaccination: No - Home Medications Home Medications: Ambulatory Orders Medication Instructions Recorded Alprazolam [Xanax] 0.5 mg PO TID 12/29/16 Amlodipine Besylate/Benazepril 1 tab PO QAM 12/29/16 [Amlodipine-Benazepril 10-20 mg] Carvedilol [Coreg] 25 mg PO BID 12/29/16 Ciprofloxacin HCl [Cipro] 500 mg PO BID #10 tablet 12/29/16 Dexlansoprazole [Dexilant] 60 mg PO QAM 12/29/16 Levomilnacipran HCl [Fetzima] 120 mg PO DAILY 12/29/16 Linaclotide [Linzess] 145 mcg PO DAILY 12/29/16 Rosuvastatin Calcium [Crestor] 10 mg PO HS 12/29/16 Tamsulosin [Flomax] 0.4 mg PO DAILY #7 cap 12/29/16 traMADol [Ultram] 50 mg PO BID 12/29/16 Ciprofloxacin HCl [Cipro] 500 mg PO BID #20 tab 01/06/17 traMADol [Ultram] 50 mg PO Q8 #10 tab 01/06/17 Naproxen [Naprosyn Tab] 375 mg PO BID PRN #20 tab 01/08/17 Dicyclomine [Bentyl] 20 mg PO BID PRN #30 tab 01/15/17 Nitrofurantoin Macrocrystals 100 mg PO BID #14 cap 02/03/17 [Macrobid] - Allergies Allergies/Adverse Reactions: Allergies Allergy/AdvReac Type Severity Reaction Status Date / Time No Known Allergies Allergy Verified 02/03/17 13:27 Review of Systems ROS Statement: Except As Marked, All Systems Reviewed And Found Negative Physical Exam - Reviewed Nursing Documentation Reviewed: Yes Vital Signs Reviewed: Yes - Physical Exam Appears: Positive for: Well, Non-toxic, No Acute Distress Head Exam: Positive for: ATRAUMATIC, NORMAL INSPECTION, NORMOCEPHALIC Skin: Positive for: Normal Color, Warm, DRY Eye Exam: Positive for: EOMI, Normal appearance, PERRL ENT: Positive for: Normal ENT Inspection Neck: Positive for: Normal, Painless ROM Cardiovascular/Chest: Positive for: Regular Rate, Rhythm Respiratory: Positive for: CNT, Normal Breath Sounds Gastrointestinal/Abdominal: Positive for: Normal Exam, Bowel Sounds, Soft Back: Positive for: Normal Inspection Extremity: Positive for: Normal ROM Neurologic/Psych: Positive for: Alert, Oriented - Laboratory Results Result Diagrams: 02/03/17 13:50 02/03/17 16:13 - ECG O2 Sat by Pulse Oximetry: 98 - Progress ED Course And Treament: OLD ED RECORDS REVIEWED. PATIENT HAS HAD MULTIPLE ED VISITS WITH REPEAT CT EVALUATION. WAS SEEN BY DR FABIAN UROLOGY AND WAS ADVISED F/U APPT WITH GI OUTPATIENT Disposition - Clinical Impression Clinical Impression: UTI (urinary tract infection) - Patient ED Disposition Is Patient to be Admitted: No - Disposition Disposition: Routine/Home Disposition Time: 17:26 Condition: FAIR Prescriptions: Nitrofurantoin Macrocrystals [Macrobid] 100 mg PO BID #14 cap Instructions: Urinary Tract Infection in Women (ED) Forms: [employer] (Tajik)
[2017-02-03 13:58] LABS: BASO # 0.1 K/uL (0.0-0.2); BASO % 0.9 % (0.0-2.0); EOS # 0.1 K/uL (0.0-0.7); EOS % 1.3 % (0.0-4.0); HEMATOCRIT 42.4 % (34.0-47.0); LYMPH # 2.8 K/uL (1.0-4.3); LYMPH % 26.2 % (20.0-40.0); MEAN CELL VOLUME 89.3 fl (81.0-99.0); MEAN CORPUSCULAR HEMOGLOBIN 29.4 pg (27.0-31.0); MEAN PLATELET VOLUME 7.7 fl (7.2-11.7); MONO # 0.9 K/uL (0.0-0.8); MONO % 8.3 % (0.0-10.0); NEUT # 6.6 K/uL (1.8-7.0); NEUT % 63.3 % (50.0-75.0); NRBC % 0.1 % (0.0-0.0); RED CELL DISTRIBUTION WIDTH 13.7 % (11.5-14.5); WHITE BLOOD COUNT 10.5 K/uL (4.8-10.8)
[2017-02-03 14:16] LABS: ALB/GLOB RATIO 1.3 (1.0-2.1); ALKALINE PHOSPHATASE 77 U/L (38-126); ALT/SGPT 19 U/L (9-52); AST/SGOT 32 U/L (14-36); BILIRUBIN,TOTAL 0.9 mg/dl (0.2-1.3); BLOOD UREA NITROGEN 10 mg/dl (7-17); CALCIUM 10.4 mg/dL (8.4-10.2); CARBON DIOXIDE 21 mmol/L (22-30); CHLORIDE 104 mmol/L (98-107); GFR AFRICAN-AMERICAN > 60; GLUCOSE,RANDOM 102 mg/dL (65-105); LIPASE 162 U/L (23-300); SODIUM 138 mmol/l (132-148); TOTAL PROTEIN 8.1 G/DL (6.3-8.2)
[2017-02-03 14:21] LABS: POTASSIUM 5.3 MMOL/L (3.6-5.0)
[2017-02-03 16:59] LABS: RBC URINE 8 /hpf (0-3); URINE BACTERIA OCC (<OCC); URINE BILIRUBIN NEGATIVE (NEGATIVE); URINE BLOOD NEGATIVE (NEGATIVE); URINE COLOR YELLOW (YELLOW); URINE GLUCOSE (UA) NEG (Normal); URINE KETONE 20 mg/dL (NEGATIVE); URINE LEUKOCYTE ESTERASE LARGE Leu/uL (Negative); URINE PROTEIN 30 mg/dL (NEGATIVE); URINE UROBILINOGEN 0.2-1.0 mg/dL (0.2-1.0); WBC URINE 10 /hpf (0-5)
[2017-02-03 18:06] VITALS: BP 168/97; PULSE 89; RESP 18
== END 2017-02-03 18:10 | disposition home or self-care (01) ==
LOC: H.ER 12:59
DX: N39.0 Urinary tract infection, site not specified (principal); I10 Essential (primary) hypertension; Z86.59 Personal history of other mental and behavioral disorders; Z87.442 Personal history of urinary calculi
CPT/HCPCS: 80053; 81003; 83690; 84132; 85025; 87086; 87181; 96361; 96374; 96375; 99283; J2405; J7040

== ENCOUNTER 2017-02-11 07:13 | Day surgery (SDC) | payer MEDICARE, MEDICAID ==
[2017-02-11] MEDS ORDERED: Lactated Ringer's 500 ML IV ONE (08:00)
[2017-02-11 09:32] VITALS: TEMP 98; O2SAT 99
[2017-02-11 09:50] VITALS: BP 110/62; PULSE 85; RESP 16
== END 2017-02-11 09:51 | disposition home or self-care (01) ==
LOC: H.ENDO 07:13
PROVIDERS: ATTEND Internal Medicine Gastroenterology
DX: K30 Functional dyspepsia (principal); I10 Essential (primary) hypertension; K44.9 Diaphragmatic hernia without obstruction or gangrene; K21.0 Gastro-esophageal reflux disease with esophagitis; K31.9 Disease of stomach and duodenum, unspecified
CPT/HCPCS: 43239; 88305; J7120

== ENCOUNTER 2017-02-26 10:26 | Emergency (ER) | payer MEDICARE, MEDICAID ==
[2017-02-26 10:30] VITALS: O2SAT 98
[2017-02-26 10:44] VITALS: BMI 30.2
[2017-02-26 11:37] LABS: BASO # 0.1 K/uL (0.0-0.2); BASO % 0.6 % (0.0-2.0); EOS # 0.1 K/uL (0.0-0.7); EOS % 1.1 % (0.0-4.0); HEMATOCRIT 39.4 % (34.0-47.0); LYMPH # 2.6 K/uL (1.0-4.3); LYMPH % 28.6 % (20.0-40.0); MEAN CELL VOLUME 87.6 fl (81.0-99.0); MEAN CORPUSCULAR HEMOGLOBIN 29.6 pg (27.0-31.0); MEAN CORPUSCULAR HGB CONC 33.8 g/dL (33.0-37.0); MEAN PLATELET VOLUME 6.9 fl (7.2-11.7); MONO # 0.6 K/uL (0.0-0.8); MONO % 6.6 % (0.0-10.0); NEUT # 5.8 K/uL (1.8-7.0); NEUT % 63.1 % (50.0-75.0); RED CELL DISTRIBUTION WIDTH 13.9 % (11.5-14.5); WHITE BLOOD COUNT 9.2 K/uL (4.8-10.8)
[2017-02-26 11:50] LABS: ALB/GLOB RATIO 1.4 (1.0-2.1); ALKALINE PHOSPHATASE 75 U/L (38-126); ALT/SGPT 28 U/L (9-52); AST/SGOT 21 U/L (14-36); BILIRUBIN,TOTAL 0.4 mg/dl (0.2-1.3); BLOOD UREA NITROGEN 13 mg/dl (7-17); CALCIUM 10.9 mg/dL (8.4-10.2); CARBON DIOXIDE 27 mmol/L (22-30); CHLORIDE 105 mmol/L (98-107); GFR AFRICAN-AMERICAN > 60; GLUCOSE,RANDOM 100 mg/dL (65-105); POTASSIUM 4.3 MMOL/L (3.6-5.0); SODIUM 142 mmol/l (132-148); TOTAL PROTEIN 7.5 G/DL (6.3-8.2)
[2017-02-26 11:58] LABS: RBC URINE 4 /hpf (0-3); URINE BACTERIA RARE (<OCC); URINE BILIRUBIN NEGATIVE (NEGATIVE); URINE BLOOD NEGATIVE (NEGATIVE); URINE CALCIUM OXALATE CRYSTALS FEW /hpf (<OCC); URINE COLOR YELLOW (YELLOW); URINE GLUCOSE (UA) NEG (Normal); URINE KETONE NEGATIVE (NEGATIVE); URINE LEUKOCYTE ESTERASE SMALL Leu/uL (Negative); URINE PROTEIN NEGATIVE (NEGATIVE); URINE UROBILINOGEN 0.2-1.0 mg/dL (0.2-1.0); WBC URINE 6 /hpf (0-5)
--- NOTE | 2017-02-26 13:09 | ED PDOC ---
HPI: Abdomen Time Seen by Provider: 02/26/17 10:52 Chief Complaint (Nursing): Abdominal Pain Chief Complaint (Provider): abdominal pain History Per: Patient History/Exam Limitations: no limitations Additional Complaint(s): 76yo F in ER c/o of chronic abdominal pain, back pain ,neck pain and leg pain. pt with hx of depression, HTN, and renal stones. most recent renal US 12/2016 showed no stones or obstruction. pt take tramadol for pain but states its not effective. Pt admits to nausea without vomiting, fever chills, hematuira, dysuria,urinary freq/urgency, bloody stool. PT denies recent injury. Past Medical History Reviewed: Historical Data, Nursing Documentation, Vital Signs Vital Signs: Last Vital Signs Temp 98.8 F 02/26/17 10:29 Pulse 83 02/26/17 10:29 Resp 16 02/26/17 10:36 BP 128/69 02/26/17 10:29 Pulse Ox 98 02/26/17 13:16 - Medical History PMH: Anxiety, Arthritis, Bipolar Disorder, COPD, Depression, Gastritis, HTN, Hypercholesterolemia, Kidney Stones Denies: Diabetes, Hepatitis, HIV, Chronic Kidney Disease, Seizures, Sexually Transmitted Disease - Surgical History Surgical History: Tonsillectomy Denies: Pacemaker - Family History Family History: States: Unknown Family Hx - Immunization History Hx Influenza Vaccination: Yes Hx Pneumococcal Vaccination: No - Home Medications Home Medications: Ambulatory Orders Medication Instructions Recorded Alprazolam [Xanax] 0.5 mg PO TID 12/29/16 Amlodipine Besylate/Benazepril 1 tab PO QAM 12/29/16 [Amlodipine-Benazepril 10-20 mg] Carvedilol [Coreg] 25 mg PO BID 12/29/16 Ketorolac Tromethamine [Toradol] 10 mg PO TID #20 cap 02/26/17 Nitrofurantoin Macrocrystals 100 mg PO BID #14 cap 02/26/17 [Macrobid] Tamsulosin HCl [Flomax] 0.4 mg PO DAILY #12 cap.er.24h 02/26/17 - Allergies Allergies/Adverse Reactions: Allergies Allergy/AdvReac Type Severity Reaction Status Date / Time No Known Allergies Allergy Verified 02/26/17 10:36 Review of Systems ROS Statement: Except As Marked, All Systems Reviewed And Found Negative Constitutional: Negative for: Fever, Chills, Sweats Gastrointestinal: Positive for: Nausea, Abdominal Pain. Negative for: Vomiting , Diarrhea, Constipation, Melena, Hematochezia, Hematemesis Musculoskeletal: Positive for: Neck Pain, Arm Pain, Back Pain, Leg Pain Physical Exam - Reviewed Nursing Documentation Reviewed: Yes Vital Signs Reviewed: Yes - Physical Exam Appears: Positive for: Well, Non-toxic, No Acute Distress Head Exam: Positive for: ATRAUMATIC, NORMAL INSPECTION, NORMOCEPHALIC Skin: Positive for: Normal Color, Warm, DRY Eye Exam: Positive for: EOMI, Normal appearance, PERRL ENT: Positive for: Normal ENT Inspection Neck: Positive for: Normal, Painless ROM Cardiovascular/Chest: Positive for: Regular Rate, Rhythm Respiratory: Positive for: CNT, Normal Breath Sounds Gastrointestinal/Abdominal: Positive for: Normal Exam, Bowel Sounds, Soft. Negative for: Tenderness (no grimacing made on abd palpation. ) Back: Positive for: Normal Inspection Extremity: Positive for: Normal ROM Neurologic/Psych: Positive for: Alert, Oriented - Laboratory Results Result Diagrams: 02/26/17 11:32 02/26/17 11:32 - ECG O2 Sat by Pulse Oximetry: 98 - CT Scan/US ct Other Rad Studies (CT/US): Radiology Report Reviewed (12mm nonobstructing stone) - Progress ED Course And Treament: pt trialed with tylenol but states its not effective. will be given torodl IV and fluids. pt labs are unremarkable-however urine shows leuk and WBC. may be related to cystitis, however because pt is c.o of diffuse abd pain will order CT scan Re-evaluation Time: 13:16 Condition: Improved (after the torodol) Medical Decision Making Medical Decision Making: dx: renal stone nonobstructing. pt will be givne macrobid, flomax and torodol advised to stop tramadol f.u with MD thanh urogologist for further eval. stable VS and well appearing. pain controlled in ED Disposition - Clinical Impression Clinical Impression: Renal calculi - Patient ED Disposition Is Patient to be Admitted: No Counseled Patient/Family Regarding: Studies Performed, Need For Followup, Rx Given - Disposition Referrals: Jennifer Cha MD [Medical Doctor] - Disposition: Routine/Home Disposition Time: 16:10 Condition: STABLE Additional Instructions: please make an appointment wiht your urology, MD ja as soon as possible. Prescriptions: Ketorolac Tromethamine [Toradol] 10 mg PO TID #20 cap Nitrofurantoin Macrocrystals [Macrobid] 100 mg PO BID #14 cap Tamsulosin HCl [Flomax] 0.4 mg PO DAILY #12 cap.er.24h Instructions: Kidney Stones (ED), Lithotripsy (GEN) Forms: [employer] (Sinhala) Print Language: BOTSWANAN
[2017-02-26] MEDS: Sodium Chloride 0.9% 1,000 ML IV STA (13:55)
[2017-02-26] MEDS ORDERED: Sodium Chloride 0.9% 50 ML IV ONE (14:25)
[2017-02-26] MEDS ORDERED: Iohexol 300 100 ML IJ ONE (14:25)
--- NOTE | 2017-02-26 16:04 | CT ---
PROCEDURE: CT Abdomen and Pelvis with contrast HISTORY: flank pain suprapubic tenderness COMPARISON: 01/06/2017 TECHNIQUE: Contrast dose: 90 mL Omnipaque 300 Radiation dose: Total exam DLP = 904.77 mGy-cm. This CT exam was performed using one or more of the following dose reduction techniques: Automated exposure control, adjustment of the mA and/or kV according to patient size, and/or use of iterative reconstruction technique. FINDINGS: LOWER THORAX: Unremarkable. LIVER: Nonspecific small low-attenuation lesions right lobe of liver, 4 mm and 5 mm. No change from 01/06/2017. No biliary dilatation. Smooth contour. GALLBLADDER AND BILE DUCTS: Unremarkable. PANCREAS: Unremarkable. No gross lesion or ductal dilatation. SPLEEN: Unremarkable. ADRENALS: 2.5 cm left adrenal mass. This measured 9 Hounsfield units on prior noncontrast CT and is consistent with an adenoma. KIDNEYS AND URETERS: 12 mm nonobstructing left lower pole renal calculus. 2.9 cm left lower pole renal cortical cyst. No change from prior. No right renal mass or calculus. No hydronephrosis. VASCULATURE: Unremarkable. No aortic aneurysm. BOWEL: Mild diverticulosis at the descending/sigmoid junction. No evidence of diverticulitis. No other abnormal bowel loops. No bowel obstruction. APPENDIX: Not identified. PERITONEUM: Unremarkable. No free fluid. No free air. LYMPH NODES: Unremarkable. No enlarged lymph nodes. BLADDER: Unremarkable. REPRODUCTIVE: Unremarkable uterus. BONES: No fracture. Grade 1 anterolisthesis at L4-5. No spondylolysis. OTHER FINDINGS: None. IMPRESSION: 12 mm nonobstructing left lower pole renal calculus. No evidence of urinary tract obstruction. 2.5 cm left adrenal adenoma. Additional minor findings as above.
[2017-02-26 16:39] VITALS: BP 132/74; PULSE 79; RESP 19; TEMP 98.6
== END 2017-02-26 16:30 | disposition home or self-care (01) ==
LOC: H.ER 10:26
DX: N20.0 Calculus of kidney (principal); I10 Essential (primary) hypertension
CPT/HCPCS: 74177; 80053; 81003; 85025; 96374; 99285; J1885; J7040; Q9967

== ENCOUNTER 2017-03-11 09:36 | Observation (INO) | payer MEDICARE, MEDICAID ==
[2017-03-11 09:36] VITALS: BMI 30.2
--- NOTE | 2017-03-11 10:43 | ED PDOC ---
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 was here last week for dizziness was discharged after eval for renal stones urology cacace no injury no head trauma or neck pain no n/t/w/bv/dv Against Medical Advice - AMA Patient Left Against Medical Advice: The patient declines admission to the hospital and wishes to leave the Emergency Department. This action is against my medical advice. This decision was made with informed refusal. The patient was told that admission to the hospital is necessary. Explanation of the reasons why were discussed. The risks of leaving were explained to the patient and include, but are not limited to, worsening of known or currently unknown conditions, permanent disability and from undiagnosed or untreated conditions. The patient has the capacity to make this informed decision and understands my explanation of the current medical problem and risks of leaving. The patient voluntarily accepts these risks and signed an AMA form documenting our conversation. The patient was given the opportunity to ask questions and reconsider. The patient was encouraged to return to the Emergency Department at any time for further care. 03/11/17 17:04 pt initally decided to sign out ama now decided to stay 03/11/17 17:04 Past Medical History Reviewed: Historical Data, Nursing Documentation, Vital Signs Vital Signs: Last Vital Signs Temp 97 F L 03/11/17 09:39 Pulse 67 03/11/17 09:39 Resp BP 93/57 L 03/11/17 09:39 Pulse Ox 98 03/11/17 09:41 - Medical History PMH: Anxiety, Arthritis, Bipolar Disorder, COPD, Depression, Gastritis, HTN, Hypercholesterolemia, Kidney Stones Denies: Diabetes, Hepatitis, HIV, Chronic Kidney Disease, Seizures, Sexually Transmitted Disease - Surgical History Surgical History: Tonsillectomy Denies: Pacemaker - Family History Family History: States: Unknown Family Hx - Living Arrangements Living Arrangements: With Family - Social History Current smoker - smoking cessation education provided: No - Immunization History Hx Influenza Vaccination: Yes Hx Pneumococcal Vaccination: No - Home Medications Home Medications: Ambulatory Orders Medication Instructions Recorded Alprazolam [Xanax] 0.5 mg PO TID PRN 03/11/17 Amlodipine Besylate/Benazepril 1 tab PO DAILY 03/11/17 [Amlodipine-Benazepril 10-20 mg] Brexpiprazole [Rexulti] 0.5 mg PO DAILY 03/11/17 Carvedilol [Coreg] 25 mg PO DAILY 03/11/17 Levomilnacipran HCl [Fetzima] 120 mg PO DAILY 03/11/17 Linaclotide [Linzess] 145 mcg PO DAILY 03/11/17 Meclizine [Meclizine*] 25 mg PO BID PRN 03/11/17 Pantoprazole [Protonix EC Tab] 40 mg PO DAILY 03/11/17 Ranitidine HCl [Zantac] 150 mg PO DAILY 03/11/17 Rosuvastatin Calcium [Crestor] 10 mg PO DAILY 03/11/17 Zolpidem [Ambien] 10 mg PO HS 03/11/17 hydrALAZINE [Apresoline] 10 mg PO DAILY 03/11/17 traZODone [Desyrel] 100 mg PO HS 03/11/17 - Allergies Allergies/Adverse Reactions: Allergies Allergy/AdvReac Type Severity Reaction Status Date / Time No Known Allergies Allergy Verified 03/11/17 09:40 Review of Systems ROS Statement: Except As Marked, All Systems Reviewed And Found Negative Constitutional: Negative for: Fever, Chills Cardiovascular: Positive for: Light Headedness. Negative for: Chest Pain, Palpitations, Edema Respiratory: Negative for: Cough, Shortness of Breath Gastrointestinal: Negative for: Nausea, Vomiting, Abdominal Pain Musculoskeletal: Negative for: Neck Pain Neurological: Negative for: Weakness, Numbness, Confusion, Seizures, Altered Mental Status, Headache, Dizziness Physical Exam - Reviewed Nursing Documentation Reviewed: Yes Vital Signs Reviewed: Yes - Physical Exam Appears: Positive for: Non-toxic, No Acute Distress, Uncomfortable Head Exam: Positive for: ATRAUMATIC, NORMAL INSPECTION, NORMOCEPHALIC Eye Exam: Positive for: Normal appearance, EOMI, PERRL ENT: Positive for: Pharynx Is (clear, dry mmm) Neck: Positive for: Normal (no midline c spine tenderness), Painless ROM, Supple. Negative for: Decreased ROM, Limited ROM, Trachea Midline, Pain On Movement Of Neck Cardiovascular/Chest: Positive for: Regular Rate, Rhythm, Chest Non Tender. Negative for: Edema, Gallop, Murmur, Bradycardia, Tachycardia Respiratory: Positive for: Normal Breath Sounds. Negative for: Decreased Breath Sounds, Accessory Muscle Use, Crackles, Rales, Rhonchi, Stridor, Wheezing , Respiratory Distress Pulses-Radial (L): 2+ Pulses-Radial (R): 2+ Gastrointestinal/Abdominal: Positive for: Normal Exam, Bowel Sounds, Soft. Negative for: Tenderness Back: Positive for: Normal Inspection. Negative for: Vertebral Tenderness Extremity: Positive for: Normal ROM. Negative for: Tenderness, Pedal Edema, Calf Tenderness, Deformity, Swelling Neurologic/Psych: Positive for: Alert, mac developer II-XII, Oriented, Mood/Affect (calm) , Cerebellar Tests (ftn nml), Other (nihss 0). Negative for: Motor/Sensory Deficits, Aphasia, Facial Droop - Laboratory Results Result Diagrams: 03/11/17 10:54 03/11/17 10:54 - ECG ECG: Positive for: Interpreted By Me ECG Rhythm: Positive for: Normal QRS, Normal ST Segment, Sinus Bradycardia ( rate ofd 58) Interpretation Of Abn EKG: q waves 3 and avf. no change compared to 01/08/17 O2 Sat by Pulse Oximetry: 98 Pulse Ox Interpretation: Normal - Radiology X-Ray: Interpreted by Me X-Ray Interpretation: No Acute Disease Medical Decision Making Medical Decision Making: pt initially refused admission and was waiting for the cta, now pt desires tele obs admission Disposition - Clinical Impression Clinical Impression: Syncope - Patient ED Disposition Is Patient to be Admitted: Yes Counseled Patient/Family Regarding: Studies Performed, Diagnosis - Disposition Disposition: Against Medical Advice Disposition Time: 16:53 Condition: STABLE - Pt Status Changed To: Hospital Disposition Of: Observation - POA Present On Arrival: None
[2017-03-11] MEDS ORDERED: Sodium Chloride 0.9% 1,000 ML IV ONE (10:45)
[2017-03-11 11:01] LABS: BASO # 0.1 K/uL (0.0-0.2); BASO % 0.8 % (0.0-2.0); EOS # 0.1 K/uL (0.0-0.7); EOS % 0.9 % (0.0-4.0); HEMATOCRIT 41.6 % (34.0-47.0); LYMPH # 2.3 K/uL (1.0-4.3); LYMPH % 17.6 % (20.0-40.0); MEAN CELL VOLUME 89.3 fl (81.0-99.0); MEAN CORPUSCULAR HEMOGLOBIN 29.1 pg (27.0-31.0); MEAN CORPUSCULAR HGB CONC 32.6 g/dL (33.0-37.0); MEAN PLATELET VOLUME 7.5 fl (7.2-11.7); MONO # 0.9 K/uL (0.0-0.8); MONO % 7.4 % (0.0-10.0); NEUT # 9.4 K/uL (1.8-7.0); NEUT % 73.3 % (50.0-75.0); RED CELL DISTRIBUTION WIDTH 14.1 % (11.5-14.5); WHITE BLOOD COUNT 12.8 K/uL (4.8-10.8)
[2017-03-11 11:26] LABS: ALB/GLOB RATIO 1.4 (1.0-2.1); ALKALINE PHOSPHATASE 77 U/L (38-126); ALT/SGPT 20 U/L (9-52); AST/SGOT 38 U/L (14-36); BILIRUBIN,TOTAL 0.6 mg/dl (0.2-1.3); BLOOD UREA NITROGEN 18 mg/dl (7-17); CALCIUM 10.3 mg/dL (8.4-10.2); CARBON DIOXIDE 23 mmol/L (22-30); CHLORIDE 107 mmol/L (98-107); GFR AFRICAN-AMERICAN > 60; GLUCOSE,RANDOM 104 mg/dL (65-105); LIPASE 250 U/L (23-300); MAGNESIUM 2.2 MG/DL (1.6-2.3); PHOSPHOROUS 3.5 mg/dl (2.5-4.5); POTASSIUM 4.5 MMOL/L (3.6-5.0); SODIUM 142 mmol/l (132-148); TOTAL PROTEIN 7.4 G/DL (6.3-8.2)
--- NOTE | 2017-03-11 11:59 | CT ---
PROCEDURE: CT HEAD WITHOUT CONTRAST. HISTORY: dizzy syncope COMPARISON: Head CT without contrast 07/08/2016. TECHNIQUE: Axial computed tomography images were obtained through the head/brain without intravenous contrast. Radiation dose: Total exam DLP = 904.72 mGy-cm. This CT exam was performed using one or more of the following dose reduction techniques: Automated exposure control, adjustment of the mA and/or kV according to patient size, and/or use of iterative reconstruction technique. FINDINGS: HEMORRHAGE: No intracranial hemorrhage. BRAIN: Diffuse expansion of the ventriculosulcal and cisternal spaces is appreciated with white matter lucency compatible with diffuse cerebral atrophy and chronic microangiopathy. The overall pattern stable with no acute intracranial findings appreciate by standard CT criteria. Midline brain anatomy appears unremarkable. No suspicious extra-axial fluid collection identified and there is no mass effect. VENTRICLES: Cavum septum pellucidum again evident. No hydrocephalus. CALVARIUM: Unremarkable. PARANASAL SINUSES: Trace inflammatory changes affect a few bilateral ethmoid air cell as well as the left sphenoid sinus. MASTOID AIR CELLS: Unremarkable as visualized. No inflammatory changes. OTHER FINDINGS: None. IMPRESSION: Stable nonacute head CT with reiterated age related neuro degenerative changes which again appear age-appropriate. Follow-up CT or MRI may be performed as clinically warranted.
[2017-03-11 12:15] LABS: RBC URINE 1 /hpf (0-3); URINE BILIRUBIN NEGATIVE (NEGATIVE); URINE BLOOD NEGATIVE (NEGATIVE); URINE COLOR STRAW (YELLOW); URINE GLUCOSE (UA) NEG (Normal); URINE KETONE NEGATIVE (NEGATIVE); URINE LEUKOCYTE ESTERASE NEG Leu/uL (Negative); URINE PROTEIN NEGATIVE (NEGATIVE); URINE UROBILINOGEN 0.2-1.0 mg/dL (0.2-1.0); WBC URINE 1 /hpf (0-5)
--- NOTE | 2017-03-11 13:47 | RAD ---
HISTORY: Syncope. Portable study 10:32. COMPARISON: 11/20/2016 FINDINGS: LUNGS: No active pulmonary disease. PLEURA: No significant pleural effusion identified, no pneumothorax apparent. CARDIOVASCULAR: No radiographic findings to suggest acute or significant cardiovascular disease. OSSEOUS STRUCTURES: No significant abnormalities. Stable dextroscoliosis VISUALIZED UPPER ABDOMEN: Normal. OTHER FINDINGS: None. IMPRESSION: No active disease. No significant interval change compared to the prior examination(s). Concordant results with the preliminary interpretation rendered by the emergency department physician procedure.
[2017-03-11] MEDS ORDERED: Iodixanol 320 MG/ML 100 ML BOTTLE IV ONE (13:48)
[2017-03-11] MEDS ORDERED: Sodium Chloride 0.9% 50 ML IV ONE (13:48)
--- NOTE | 2017-03-11 16:31 | CARD ---
APPROVED REPORT EKG Measurement Heart [id number] <Conclusion> Sinus bradycardia Otherwise normal ECG
--- NOTE | 2017-03-11 16:45 | CT ---
PROCEDURE: CT Chest with contrast (Pulmonary Angiogram) HISTORY: cp r/o pe COMPARISON: None available. TECHNIQUE: Axial computed tomography images were obtained of the chest in the pulmonary arterial phase of enhancement. Coronal and sagittal reformatted images were created and reviewed. Maximum intensity projection (MIP) reconstructed images in the following planes: Intravenous contrast dose: 90 cc [id number]. Mean Hounsfield unit values in the main pulmonary artery: 383.22 Radiation dose: Total exam DLP = 45.44 mGy-cm. This CT exam was performed using one or more of the following dose reduction techniques: Automated exposure control, adjustment of the mA and/or kV according to patient size, and/or use of iterative reconstruction technique. FINDINGS: PULMONARY ARTERIES: Unremarkable. No pulmonary embolism. AORTA: No acute findings. No thoracic aortic aneurysm. LUNGS: Unremarkable. No nodule, mass or pulmonary consolidation. PLEURAL SPACES: Unremarkable. No effusion or pneuomothorax. HEART: Unremarkable. No cardiomegaly. No significant pericardial effusion. LYMPH NODES: No lymphadenopathy. BONES, CHEST WALL: Unremarkable. No fracture or destructive lesion OTHER FINDINGS: Unremarkable. IMPRESSION: Unremarkable CT pulmonary angiogram. No pulmonary embolus. No significant or acute findings to account for/ related to the clinical presentation.
--- NOTE | 2017-03-11 18:06 | CP.PCM.HP ---
History of Present Illness - History of Present Illness History of Present Illness: 76 yo female with history of Depression, Gastritis, HTN and HLD came in claiming she felt dizzy and almost passed out earlier today. Denied SOB or chest pain. She claimed she also has abdominal and back pain secondary a left renal calculus which is supposed to be removed by Dr Cha tomorrow.. Present on Admission - Present on Admission Any Indicators Present on Admission: No History of DVT/PE: No History of Uncontrolled Diabetes: No Urinary Catheter: No Decubitus Ulcer Present: No Review of Systems - Review of Systems All systems: reviewed and no additional remarkable complaints except (aside from those mentioned above, 12 point system review were negative by me) Past Patient History - Infectious Disease Hx of Infectious Diseases: None - Tetanus Immunizations Tetanus Immunization: Unknown - Past Medical History & Family History Past Medical History?: Yes Past Family History: Reviewed and not pertinent - Past Social History Smoking Status: Never Smoked Alcohol: None Drugs: Denies Home Situation {Lives}: With Family - CARDIAC Hx Hypercholesterolemia: Yes Hx Hypertension: Yes Hx Pacemaker: No - PULMONARY Hx Chronic Obstructive Pulmonary Disease (COPD): Yes - NEUROLOGICAL Hx Neurological Disorder: No Hx Seizures: No - HEENT Hx HEENT Problems: No - RENAL Hx Chronic Kidney Disease: No Hx Kidney Stones: Yes (left renal calculus) - ENDOCRINE/METABOLIC Hx Endocrine Disorders: No - HEMATOLOGICAL/ONCOLOGICAL Hx Human Immunodeficiency Virus (HIV): No - INTEGUMENTARY Hx Dermatological Problems: No - MUSCULOSKELETAL/RHEUMATOLOGICAL Hx Arthritis: Yes - GASTROINTESTINAL Hx Gastritis: Yes - GENITOURINARY/GYNECOLOGICAL Hx Genitourinary Disorders: No Hx Sexually Transmitted Disorders: No - PSYCHIATRIC Hx Anxiety: Yes Hx Bipolar Disorder: Yes Hx Depression: Yes - SURGICAL HISTORY Hx Tonsillectomy: Yes - ANESTHESIA Hx Anesthesia: Yes Hx Anesthesia Reactions: No Hx Malignant Hyperthermia: No Meds Allergies/Adverse Reactions: Allergies Allergy/AdvReac Type Severity Reaction Status Date / Time No Known Allergies Allergy Verified 03/11/17 09:40 Physical Exam - Constitutional Appears: No Acute Distress - Head Exam Head Exam: ATRAUMATIC - Eye Exam Eye Exam: absent: Scleral icterus - ENT Exam ENT Exam: Mucous Membranes Moist - Neck Exam Neck exam: Negative for: Meningismus - Respiratory Exam Respiratory Exam: absent: Rhonchi, Wheezes, Respiratory Distress - Cardiovascular Exam Cardiovascular Exam: REGULAR RHYTHM, +S1, +S2 - GI/Abdominal Exam GI & Abdominal Exam: Soft. absent: Tenderness - Rectal Exam Rectal Exam: Deferred - Back Exam Back exam: absent: tenderness - Neurological Exam Neurological exam: Alert - Psychiatric Exam Psychiatric exam: Normal Affect - Skin Skin Exam: Dry, Intact Results - Vital Signs Recent Vital Signs: Last Vital Signs Temp 97.7 F 03/11/17 17:53 Pulse 63 03/11/17 17:53 Resp 18 03/11/17 17:53 BP 155/90 H 03/11/17 17:53 Pulse Ox 99 03/11/17 17:53 - Labs Result Diagrams: 03/11/17 10:54 03/11/17 10:54 Labs: Laboratory Results - last 24 hr 03/11/17 03/11/17 03/11/17 09:54 10:54 10:54 WBC 12.8 H RBC 4.66 Hgb 13.6 Hct 41.6 MCV 89.3 MCH 29.1 MCHC 32.6 L RDW 14.1 Plt Count 305 MPV 7.5 Neut % (Auto) 73.3 Lymph % (Auto) 17.6 L [place] % (Auto) 7.4 Eos % (Auto) 0.9 Baso % (Auto) 0.8 Neut # 9.4 H Lymph # 2.3 [place] # 0.9 H Eos # 0.1 Baso # 0.1 APTT D-Dimer, Quantitative Sodium 142 Potassium 4.5 Chloride 107 Carbon Dioxide 23 Anion Gap 17 BUN 18 H Creatinine 0.7 Est GFR ( Amer) > 60 Est GFR (Non-Af Amer) > 60 POC Glucose (mg/dL) 107 Random Glucose 104 Calcium 10.3 H Phosphorus 3.5 Magnesium 2.2 Total Bilirubin 0.6 AST 38 H D ALT 20 Alkaline Phosphatase 77 Total Creatine Kinase 24 L Troponin I < 0.0120 NT-Pro-B Natriuret Pep 31.6 Total Protein 7.4 Albumin 4.3 Globulin 3.1 Albumin/Globulin Ratio 1.4 Lipase 250 Urine Color Urine Clarity Urine pH Ur Specific [place] Urine Protein Urine Glucose (UA) Urine Ketones Urine Blood Urine Nitrate Urine Bilirubin Urine Urobilinogen Ur Leukocyte Esterase Urine RBC (Auto) Urine Microscopic WBC Ur Squamous Epith Cells 03/11/17 03/11/17 11:40 11:53 WBC RBC Hgb Hct MCV MCH MCHC RDW Plt Count MPV Neut % (Auto) Lymph % (Auto) [place] % (Auto) Eos % (Auto) Baso % (Auto) Neut # Lymph # [place] # Eos # Baso # APTT 26.0 D-Dimer, Quantitative 1075 H Sodium Potassium Chloride Carbon Dioxide Anion Gap BUN Creatinine Est GFR ( Amer) Est GFR (Non-Af Amer) POC Glucose (mg/dL) Random Glucose Calcium Phosphorus Magnesium Total Bilirubin AST ALT Alkaline Phosphatase Total Creatine Kinase Troponin I NT-Pro-B Natriuret Pep Total Protein Albumin Globulin Albumin/Globulin Ratio Lipase Urine Color Straw Urine Clarity Clear Urine pH 6.0 Ur Specific [place] 1.008 Urine Protein Negative Urine Glucose (UA) Neg Urine Ketones Negative Urine Blood Negative Urine Nitrate Negative Urine Bilirubin Negative Urine Urobilinogen 0.2-1.0 Ur Leukocyte Esterase Neg Urine RBC (Auto) 1 Urine Microscopic WBC 1 Ur Squamous Epith Cells 1 Assessment & Plan (1) Near syncope Status: Acute Comment: place on observation in telemetry. serial Troponins and EKG (2) Depression Status: Acute Comment: on Trazodone (3) HTN (hypertension) Status: Acute Priority: Medium Comment: BP controlled. continue Carvedilol and Amlodipine/Benazepril (4) Renal calculus, left Status: Acute Comment: Dr Cha was supposed to see patient tomorrow
[2017-03-12] MEDS: Morphine 4 MG/ML VIAL IVP PRN ×3 (00:39→11:45)
[2017-03-12 05:44] LABS: BASO # 0.1 K/uL (0.0-0.2); BASO % 0.6 % (0.0-2.0); EOS # 0.2 K/uL (0.0-0.7); EOS % 2.4 % (0.0-4.0); HEMATOCRIT 37.6 % (34.0-47.0); LYMPH # 3.4 K/uL (1.0-4.3); LYMPH % 37.5 % (20.0-40.0); MEAN CELL VOLUME 88.9 fl (81.0-99.0); MEAN CORPUSCULAR HEMOGLOBIN 29.8 pg (27.0-31.0); MEAN CORPUSCULAR HGB CONC 33.5 g/dL (33.0-37.0); MEAN PLATELET VOLUME 7.4 fl (7.2-11.7); MONO # 0.9 K/uL (0.0-0.8); MONO % 9.5 % (0.0-10.0); NEUT # 4.6 K/uL (1.8-7.0); NRBC % 0.1 % (0.0-0.0); RED CELL DISTRIBUTION WIDTH 13.9 % (11.5-14.5); WHITE BLOOD COUNT 9.2 K/uL (4.8-10.8)
[2017-03-12] MEDS ORDERED: Influenza Vaccine 18yr & older 0.5 ML/45 MCG SYR IM ONE (06:00)
[2017-03-12] MEDS ORDERED: Pneumococcal 23-Valent Vaccine IM ONE (06:00)
[2017-03-12 06:11] LABS: BLOOD UREA NITROGEN 12 mg/dl (7-17); GLUCOSE,RANDOM 88 mg/dL (65-105)
[2017-03-12 06:12] LABS: CALCIUM 9.1 mg/dL (8.4-10.2); CARBON DIOXIDE 26 mmol/L (22-30); CHLORIDE 106 mmol/L (98-107); GFR AFRICAN-AMERICAN > 60; POTASSIUM 3.9 MMOL/L (3.6-5.0); SODIUM 141 mmol/l (132-148)
[2017-03-12 08:17] VITALS: RESP 18
[2017-03-12] MEDS ORDERED: LEVOMILNACIPRAN HCL 120 MG PO SCH (09:00)
[2017-03-12] MEDS ORDERED: Patient's Own Med (Rosuvastatin Calcium [Crestor] 10 MG) PO SCH (09:00)
[2017-03-12] MEDS ORDERED: AMLODIPINE BENAZEPRIL PO SCH (09:00)
[2017-03-12] MEDS ORDERED: Pantoprazole 40 mg EC Tab PO SCH ×2 (09:00)
--- NOTE | 2017-03-12 09:40 | CP.PCM.DIS ---
Provider - Provider Date of Admission: 03/11/17 17:05 Attending physician: Sam Nixon MD Time Spent in preparation of Discharge (in minutes): 25 Diagnosis - Discharge Diagnosis (1) Near syncope Status: Acute (2) Depression Status: Chronic Priority: Medium Comment: f/u with psychiatrist (3) Renal calculus, left Status: Chronic Comment: f/u with Dr. Cha [facility] Course - Lab Results Lab Results: Most Recent Lab Values WBC 9.2 K/uL (4.8-10.8) 03/12/17 04:20 RBC 4.24 Mil/uL (3.80-5.20) 03/12/17 04:20 Hgb 12.6 g/dL (12.0-16.0) 03/12/17 04:20 Hct 37.6 % (34.0-47.0) 03/12/17 04:20 MCV 88.9 fl (81.0-99.0) 03/12/17 04:20 MCH 29.8 pg (27.0-31.0) 03/12/17 04:20 MCHC 33.5 g/dL (33.0-37.0) 03/12/17 04:20 RDW 13.9 % (11.5-14.5) 03/12/17 04:20 Plt Count 275 K/uL (130-400) 03/12/17 04:20 MPV 7.4 fl (7.2-11.7) 03/12/17 04:20 Neut % (Auto) 50.0 % (50.0-75.0) 03/12/17 04:20 Lymph % (Auto) 37.5 % (20.0-40.0) 03/12/17 04:20 [place] % (Auto) 9.5 % (0.0-10.0) 03/12/17 04:20 Eos % (Auto) 2.4 % (0.0-4.0) 03/12/17 04:20 Baso % (Auto) 0.6 % (0.0-2.0) 03/12/17 04:20 Neut # 4.6 K/uL (1.8-7.0) 03/12/17 04:20 Lymph # 3.4 K/uL (1.0-4.3) 03/12/17 04:20 [place] # 0.9 K/uL (0.0-0.8) H 03/12/17 04:20 Eos # 0.2 K/uL (0.0-0.7) 03/12/17 04:20 Baso # 0.1 K/uL (0.0-0.2) 03/12/17 04:20 APTT 26.0 Seconds (25.6-37.1) 03/11/17 11:40 D-Dimer, Quantitative 1075 ng/mlDDU (0-230) H 03/11/17 11:40 Sodium 141 mmol/l (132-148) 03/12/17 04:20 Potassium 3.9 MMOL/L (3.6-5.0) 03/12/17 04:20 Chloride 106 mmol/L (98-107) 03/12/17 04:20 Carbon Dioxide 26 mmol/L (22-30) 03/12/17 04:20 Anion Gap 13 (10-20) 03/12/17 04:20 BUN 12 mg/dl (7-17) 03/12/17 04:20 Creatinine 0.6 mg/dL (0.7-1.2) L 03/12/17 04:20 Est GFR ( Amer) > 60 03/12/17 04:20 Est GFR (Non-Af Amer) > 60 03/12/17 04:20 POC Glucose (mg/dL) 107 mg/dL (65-110) 03/11/17 09:54 Random Glucose 88 mg/dL (65-105) 03/12/17 04:20 Calcium 9.1 mg/dL (8.4-10.2) 03/12/17 04:20 Phosphorus 3.5 mg/dl (2.5-4.5) 03/11/17 10:54 Magnesium 2.2 MG/DL (1.6-2.3) 03/11/17 10:54 Total Bilirubin 0.6 mg/dl (0.2-1.3) 03/11/17 10:54 AST 38 U/L (14-36) H D 03/11/17 10:54 ALT 20 U/L (9-52) 03/11/17 10:54 Alkaline Phosphatase 77 U/L (38-126) 03/11/17 10:54 Total Creatine Kinase 24 U/L (30-135) L 03/11/17 10:54 Troponin I < 0.0120 ng/mL (0.00-0.120) 03/12/17 04:20 NT-Pro-B Natriuret Pep 31.6 pg/ml (0-900) 03/11/17 10:54 Total Protein 7.4 G/DL (6.3-8.2) 03/11/17 10:54 Albumin 4.3 g/dL (3.5-5.0) 03/11/17 10:54 Globulin 3.1 gm/dL (2.2-3.9) 03/11/17 10:54 Albumin/Globulin Ratio 1.4 (1.0-2.1) 03/11/17 10:54 Lipase 250 U/L (23-300) 03/11/17 10:54 Urine Color Straw (YELLOW) 03/11/17 11:53 Urine Clarity Clear (Clear) 03/11/17 11:53 Urine pH 6.0 (5.0-8.0) 03/11/17 11:53 Ur Specific [place] 1.008 (1.003-1.030) 03/11/17 11:53 Urine Protein Negative mg/dL (NEGATIVE) 03/11/17 11:53 Urine Glucose (UA) Neg mg/dL (Normal) 03/11/17 11:53 Urine Ketones Negative mg/dL (NEGATIVE) 03/11/17 11:53 Urine Blood Negative (NEGATIVE) 03/11/17 11:53 Urine Nitrate Negative (NEGATIVE) 03/11/17 11:53 Urine Bilirubin Negative (NEGATIVE) 03/11/17 11:53 Urine Urobilinogen 0.2-1.0 mg/dL (0.2-1.0) 03/11/17 11:53 Ur Leukocyte Esterase Neg Sunday/uL (Negative) 03/11/17 11:53 Urine RBC (Auto) 1 /hpf (0-3) 03/11/17 11:53 Urine Microscopic WBC 1 /hpf (0-5) 03/11/17 11:53 Ur Squamous Epith Cells 1 /hpf (0-5) 03/11/17 11:53 - Hospital Course Hospital Course: 76 y/o female with PMHx of HTN, HLD, anxiety, depression, gastritis and renal calculi admitted to the hospital following a near syncopal episode. Pt states she was feeling dizzy as though she may fall out of her chair, likely due to the pain she has been experiencing from her kidney stone. Pt denied F/C/N/V/CP/ SOB throughout her hospital stay. Pt admitted to constipation which is chronic in nature and for which she takes stool softeners. Serial troponins were performed and shown to be negative. An EKG was also performed which showed mild sinus bradycardia with an otherwise normal sinus rhythm. Pt was monitored in telemetry and a CT of the head and chest were performed. Head CT showed age- related degenerative changes with no acute changes noted. Chest CT showed no active or acute disease. Pt's symptoms resolved during her stay, as her confusion and dizziness is likely due to her new psychiatric medications. Pt will be discharged home in stable condition and is encouraged to follow up with Dr. Cha for her renal calculus, as well as her psychiatric doctor to discuss her medication side effects and manage her depression. Pt will also follow up with her PMD Dr. Ramos. Discharge Exam - Head Exam Head Exam: ATRAUMATIC, NORMAL INSPECTION, NORMOCEPHALIC - Eye Exam Eye Exam: EOMI, Normal appearance, PERRL Pupil Exam: NORMAL ACCOMODATION, PERRL - ENT Exam ENT Exam: Mucous Membranes Moist - Neck Exam Neck exam: Full Rom, Normal Inspection Additional comments: supple, non-tender - Respiratory Exam Respiratory Exam: NORMAL BREATHING PATTERN, UNREMARKABLE Additional comments: no wheezes, no rales, no respiratory distress, no stridor - Cardiovascular Exam Cardiovascular Exam: REGULAR RHYTHM, +S1, +S2 - GI/Abdominal Exam GI & Abdominal Exam: Normal Bowel Sounds, Soft, Unremarkable Additional comments: mild tenderness noted upon palpation of left mid-abdominal region - Rectal Exam Rectal Exam: Deferred - Extremities Exam Extremities exam: normal capillary refill, normal inspection, pedal pulses present Additional comments: varicosities noted to medial ankle B/L - Back Exam Back exam: NORMAL INSPECTION - Neurological Exam Neurological exam: Alert, CN II-XII Intact, Oriented x3 - Psychiatric Exam Psychiatric exam: Normal Affect, Normal Mood - Skin Skin Exam: Intact, Normal Color Discharge Plan - Follow Up Plan Condition: STABLE Disposition: HOME/ ROUTINE Instructions: Syncope (DC), Depression (DC), Anxiety (DC) Additional Instructions: Follow up with her psychiatrist Referrals: Jennifer Cha MD [Medical Doctor] - Jamaal Ramos [Staff Provider] -
[2017-03-12 12:43] VITALS: BP 102/67; PULSE 80; TEMP 98.6; O2SAT 97
== END 2017-03-12 13:44 | disposition home or self-care (01) ==
LOC: H.ER 09:36 → H.ERHOLD 17:05 → H.TEL 20:41
DX: R55 Syncope and collapse (principal); Z23 Encounter for immunization; E78.00 Pure hypercholesterolemia, unspecified; E78.5 Hyperlipidemia, unspecified; F31.9 Bipolar disorder, unspecified; I10 Essential (primary) hypertension; J44.9 Chronic obstructive pulmonary disease, unspecified; K59.00 Constipation, unspecified; N20.0 Calculus of kidney; Z79.899 Other long term (current) drug therapy; Z87.442 Personal history of urinary calculi; F41.9 Anxiety disorder, unspecified; K29.70 Gastritis, unspecified, without bleeding; M19.90 Unspecified osteoarthritis, unspecified site; R00.1 Bradycardia, unspecified; R42 Dizziness and giddiness
CPT/HCPCS: 36415; 70450; 71010; 71275; 80048; 80053; 81003; 82550; 82948; 83690; 83735; 83880; 84100; 84484; 85025; 85378; 85730; 87086; 90732; 93005; 96374; 96376; 99285; G0008; G0009; G0378; J2270; J7040; Q2035; Q9967

== ENCOUNTER 2017-03-15 16:38 | Emergency (ER) | payer MEDICARE, MEDICAID ==
[2017-03-15 16:38] VITALS: BMI 30.2
[2017-03-15 16:47] VITALS: O2SAT 99
--- NOTE | 2017-03-15 17:17 | ED PDOC ---
HPI: Female Pain Time Seen by Provider: 03/15/17 16:53 Chief Complaint (Nursing): Female Genitourinary Chief Complaint (Provider): Flank pain, Abdominal pain History Per: Patient History/Exam Limitations: no limitations Onset/Duration Of Symptoms: Days (Yesterday) Current Symptoms Are (Timing): Still Present Severity: Mild Quality Of Discomfort: "Pain" Associated Symptoms: denies: Fever, Nausea, Vomiting, Urinary Symptoms Additional History Per: Patient Additional Complaint(s): 76 y/o female c/o left flank and abdominal pain since yesterday. Patient reports symptoms are similar to previous episodes due to renal colic. Patient has multiple prior visits to the ER. Patient is scheduled for a procedure at Urology on March 25, 2017. Reports running out of Ibuprofen at home which prompted her visit today. Denies fever, nausea, or vomiting. No dysuria, hematuria, or frequency. No trauma or injury. Past Medical History Reviewed: Historical Data, Nursing Documentation, Vital Signs Vital Signs: Last Vital Signs Temp 98.9 F 03/15/17 16:43 Pulse 86 03/15/17 16:43 Resp 18 03/15/17 16:43 BP 196/92 H 03/15/17 16:43 Pulse Ox 99 03/15/17 16:43 - Medical History PMH: Anxiety, Arthritis, Bipolar Disorder, COPD, Depression, Gastritis, HTN, Hypercholesterolemia, Kidney Stones, Chronic Kidney Disease Denies: Diabetes, Hepatitis, HIV, Seizures, Sexually Transmitted Disease - Surgical History Surgical History: Tonsillectomy Denies: Pacemaker - Family History Family History: States: Unknown Family Hx - Social History Current smoker - smoking cessation education provided: No Alcohol: None Drugs: Denies - Immunization History Hx Influenza Vaccination: Yes Hx Pneumococcal Vaccination: No - Home Medications Home Medications: Ambulatory Orders Medication Instructions Recorded Alprazolam [Xanax] 0.5 mg PO TID PRN 03/11/17 Amlodipine Besylate/Benazepril 1 tab PO DAILY 03/11/17 [Amlodipine-Benazepril 10-20 mg] Brexpiprazole [Rexulti] 0.5 mg PO DAILY 03/11/17 Carvedilol [Coreg] 25 mg PO DAILY 03/11/17 Levomilnacipran HCl [Fetzima] 120 mg PO DAILY 03/11/17 Linaclotide [Linzess] 145 mcg PO DAILY 03/11/17 Meclizine [Meclizine*] 25 mg PO BID PRN 03/11/17 Pantoprazole [Protonix EC Tab] 40 mg PO DAILY 03/11/17 Ranitidine HCl [Zantac] 150 mg PO DAILY 03/11/17 Rosuvastatin Calcium [Crestor] 10 mg PO DAILY 03/11/17 Zolpidem [Ambien] 10 mg PO HS 03/11/17 hydrALAZINE [Apresoline] 10 mg PO DAILY 03/11/17 traZODone [Desyrel] 100 mg PO HS 03/11/17 Ibuprofen [Motrin Tab] 600 mg PO Q8 PRN #60 tab 03/15/17 - Allergies Allergies/Adverse Reactions: Allergies Allergy/AdvReac Type Severity Reaction Status Date / Time No Known Allergies Allergy Verified 03/11/17 09:40 Review of Systems ROS Statement: Except As Marked, All Systems Reviewed And Found Negative Constitutional: Negative for: Fever, Other (Trauma or injury) Gastrointestinal: Negative for: Nausea, Vomiting Genitourinary Female: Positive for: Other (Left flank pain). Negative for: Dysuria, Frequency, Hematuria Physical Exam - Reviewed Nursing Documentation Reviewed: Yes Vital Signs Reviewed: Yes - Physical Exam Appears: Positive for: Non-toxic, In Acute Distress Head Exam: Positive for: ATRAUMATIC, NORMOCEPHALIC Skin: Positive for: Warm, Dry Neck: Positive for: Painless ROM, Supple Cardiovascular/Chest: Positive for: Regular Rate, Rhythm. Negative for: Murmur Respiratory: Positive for: Normal Breath Sounds. Negative for: Wheezing, Respiratory Distress Gastrointestinal/Abdominal: Positive for: Soft. Negative for: Tenderness Back: Positive for: L CVA Tenderness Extremity: Positive for: Normal ROM. Negative for: Deformity Lymphatic: Negative for: Adenopathy Neurologic/Psych: Positive for: Alert. Negative for: Motor/Sensory Deficits - ECG O2 Sat by Pulse Oximetry: 99 (RA) Pulse Ox Interpretation: Normal Medical Decision Making Medical Decision Making: Impression: * Left flank pain acute on chronic Plans: * Tylenol * Toradol * Flomax * UA DDx: * Renal Colic vs Pyelonephritis vs Chronic pain Reeval at 1800 pt feeling better. DC home Ibuprofen f/u cacace. dw pt plan of care. pt eager to go home. Scribe Attestation: Documented by Preeti hazel, acting as a scribe for Diana Liu MD Provider Scribe Attestation: All medical record entries made by the Scribe were at my direction and personally dictated by me. I have reviewed the chart and agree that the record accurately reflects my personal performance of the history, physical exam, medical decision making, and the department course for this patient. I have also personally directed, reviewed, and agree with the discharge instructions and disposition. Disposition - Clinical Impression Clinical Impression: Flank pain Counseled Patient/Family Regarding: Studies Performed, Diagnosis - Disposition Referrals: Jennifer Cha MD [Medical Doctor] - Disposition: Routine/Home Disposition Time: 18:00 Condition: GOOD Prescriptions: Ibuprofen [Motrin Tab] 600 mg PO Q8 PRN #60 tab PRN Reason: Pain, Moderate (4-7) Instructions: Flank Pain (ED) Forms: [facility] (Maori)
[2017-03-15 18:09] LABS: RBC URINE 2 /hpf (0-3); URINE BACTERIA RARE (<OCC); URINE BILIRUBIN NEGATIVE (NEGATIVE); URINE BLOOD NEGATIVE (NEGATIVE); URINE COLOR STRAW (YELLOW); URINE GLUCOSE (UA) NEG (Normal); URINE KETONE NEGATIVE (NEGATIVE); URINE LEUKOCYTE ESTERASE TRACE Leu/uL (Negative); URINE PROTEIN 30 mg/dL (NEGATIVE); URINE UROBILINOGEN 0.2-1.0 mg/dL (0.2-1.0); WBC URINE 5 /hpf (0-5)
[2017-03-15 19:06] VITALS: BP 160/80; PULSE 70; RESP 20; TEMP 98
== END 2017-03-15 19:13 | disposition home or self-care (01) ==
LOC: H.ER 16:38
DX: R10.9 Unspecified abdominal pain (principal); Z86.59 Personal history of other mental and behavioral disorders; N18.9 Chronic kidney disease, unspecified; Z87.442 Personal history of urinary calculi; I10 Essential (primary) hypertension; J44.9 Chronic obstructive pulmonary disease, unspecified
CPT/HCPCS: 81003; 87086; 96372; 99284; J1885

== ENCOUNTER 2017-04-14 10:25 | Emergency (ER) | payer MEDICARE, MEDICAID ==
[2017-04-14 10:25] VITALS: BMI 30.2
[2017-04-14 10:32] VITALS: BP 130/66; PULSE 71; TEMP 98; O2SAT 97
--- NOTE | 2017-04-14 11:26 | ED PDOC ---
HPI: General Adult Time Seen by Provider: 04/14/17 11:13 Chief Complaint (Nursing): Dizziness/Lightheaded Chief Complaint (Provider): dizziness, abd pain History Per: Patient Additional Complaint(s): 76-year-old female presents to emergency department with dizziness ongoing for the past several days and abdominal pain secondary to kidney stones. Patient states she has chronic dizziness at baseline but feels more dizzy over the past couple of days. She also states that 3 weeks ago she had a lithotripsy done at a surgical Center in [place]. Patient still complains of abdominal and flank pain associated with nausea but no vomiting. Patient denies fever or chills. She has been taking ibuprofen which has not helped her pain. Past Medical History Reviewed: Historical Data, Nursing Documentation, Vital Signs Vital Signs: Last Vital Signs Temp 98 F 04/14/17 10:32 Pulse 71 04/14/17 10:32 Resp BP 130/66 04/14/17 10:32 Pulse Ox 97 04/14/17 12:53 - Medical History PMH: Anxiety, Arthritis, Bipolar Disorder, COPD, Depression, Gastritis, HTN, Hypercholesterolemia, Kidney Stones, Chronic Kidney Disease - Surgical History Surgical History: Tonsillectomy Denies: Pacemaker Other surgeries: lithotripsy - Family History Family History: States: No Known Family Hx - Living Arrangements Living Arrangements: With Family - Social History Current smoker - smoking cessation education provided: No Alcohol: None Drugs: Denies - Home Medications Home Medications: Ambulatory Orders Medication Instructions Recorded Alprazolam [Xanax] 0.5 mg PO TID PRN 03/11/17 Amlodipine Besylate/Benazepril 1 tab PO DAILY 03/11/17 [Amlodipine-Benazepril 10-20 mg] Brexpiprazole [Rexulti] 0.5 mg PO DAILY 03/11/17 Carvedilol [Coreg] 25 mg PO DAILY 03/11/17 Levomilnacipran HCl [Fetzima] 120 mg PO DAILY 03/11/17 Linaclotide [Linzess] 145 mcg PO DAILY 03/11/17 Meclizine [Meclizine*] 25 mg PO BID PRN 03/11/17 Pantoprazole [Protonix EC Tab] 40 mg PO DAILY 03/11/17 Ranitidine HCl [Zantac] 150 mg PO DAILY 03/11/17 Rosuvastatin Calcium [Crestor] 10 mg PO DAILY 03/11/17 Zolpidem [Ambien] 10 mg PO HS 03/11/17 hydrALAZINE [Apresoline] 10 mg PO DAILY 03/11/17 traZODone [Desyrel] 100 mg PO HS 03/11/17 Ibuprofen [Motrin Tab] 600 mg PO Q8 PRN #60 tab 03/15/17 - Allergies Allergies/Adverse Reactions: Allergies Allergy/AdvReac Type Severity Reaction Status Date / Time No Known Allergies Allergy Verified 03/11/17 09:40 Review of Systems ROS Statement: Except As Marked, All Systems Reviewed And Found Negative Constitutional: Negative for: Fever Cardiovascular: Negative for: Chest Pain Respiratory: Negative for: Cough Gastrointestinal: Positive for: Nausea, Abdominal Pain. Negative for: Vomiting , Diarrhea, Constipation Genitourinary Female: Negative for: Dysuria, Frequency, Incontinence, Hematuria , Vaginal Discharge, Vaginal Bleeding Neurological: Positive for: Headache, Dizziness. Negative for: Weakness Physical Exam - Reviewed Nursing Documentation Reviewed: Yes Vital Signs Reviewed: Yes - Physical Exam Appears: Positive for: Well, Non-toxic, No Acute Distress Skin: Negative for: Rash Eye Exam: Positive for: Normal appearance Cardiovascular/Chest: Positive for: Regular Rate, Rhythm Respiratory: Positive for: Normal Breath Sounds Gastrointestinal/Abdominal: Positive for: Other (Obese nontender abdomen with no rebound or guarding, normoactive bowel sounds in all 4 quadrants) Back: Positive for: Normal Inspection. Negative for: L CVA Tenderness, R CVA Tenderness Extremity: Positive for: Normal ROM Neurologic/Psych: Positive for: Alert, Oriented - Laboratory Results Result Diagrams: 04/14/17 12:12 04/14/17 12:12 - ECG Interpretation Of ECG: NSR 64 bpm, no acute finding, reviewed by PA and ED attending O2 Sat by Pulse Oximetry: 97 Pulse Ox Interpretation: Normal Medical Decision Making Medical Decision Makin76 year old with dizziness, abd and back pain Plan: EKG CBC CMP Trop Urine dip UA Urine culture IVF PO tylenol Patient feels better after medications administered. She is aware of all diagnostic testing results. All questions answered. Patient was instructed to continue with Motrin for pain which she has at home. She was advised to follow up with primary care doctor. Disposition - Clinical Impression Clinical Impression: Dizziness of unknown cause, Flank pain - Patient ED Disposition Is Patient to be Admitted: No Counseled Patient/Family Regarding: Studies Performed, Diagnosis, Need For Followup - Disposition Referrals: Jamaal Ramos [Family Provider] - Disposition: Routine/Home Disposition Time: 13:06 Condition: STABLE Additional Instructions: Continue with Motrin for pain, drink plenty of fluids. Follow-up with primary doctor. Instructions: Flank Pain (ED), Dizziness (ED) Forms: [facility] (Mongolian) Results - Lab Results Lab Results: 04/14/17 04/14/17 04/14/17 12:12 12:12 11:35 WBC 8.8 RBC 4.77 Hgb 13.8 Hct 42.3 MCV 88.5 MCH 29.0 MCHC 32.7 L RDW 13.9 Plt Count 295 MPV 7.8 Neut % (Auto) 58.3 Lymph % (Auto) 29.0 [place] % (Auto) 9.6 Eos % (Auto) 2.6 Baso % (Auto) 0.5 Neut # 5.1 Lymph # 2.5 [place] # 0.8 Eos # 0.2 Baso # 0.0 Sodium 146 Potassium 4.1 Chloride 109 H Carbon Dioxide 23 Anion Gap 18 BUN 10 Creatinine 0.6 L Est GFR ( Amer) > 60 Est GFR (Non-Af Amer) > 60 Random Glucose 88 Calcium 10.4 H Total Bilirubin 0.4 AST 21 ALT 30 Alkaline Phosphatase 81 Troponin I < 0.0120 Total Protein 7.9 Albumin 4.7 Globulin 3.2 Albumin/Globulin Ratio 1.5 Urine Color Straw Urine Clarity Clear Urine pH 6.0 Ur Specific [place] 1.009 Urine Protein Negative Urine Glucose (UA) Neg Urine Ketones Negative Urine Blood Negative Urine Nitrate Negative Urine Bilirubin Negative Urine Urobilinogen 0.2-1.0 Ur Leukocyte Esterase Neg Urine RBC (Auto) 1 Urine Microscopic WBC 1 Urine Bacteria Rare
[2017-04-14] MEDS ORDERED: Sodium Chloride 0.9% 1,000 ML IV STA (11:28)
[2017-04-14 12:24] LABS: RBC URINE 1 /hpf (0-3); URINE BACTERIA RARE (<OCC); URINE BILIRUBIN NEGATIVE (NEGATIVE); URINE BLOOD NEGATIVE (NEGATIVE); URINE COLOR STRAW (YELLOW); URINE GLUCOSE (UA) NEG (Normal); URINE KETONE NEGATIVE (NEGATIVE); URINE LEUKOCYTE ESTERASE NEG Leu/uL (Negative); URINE PROTEIN NEGATIVE (NEGATIVE); URINE UROBILINOGEN 0.2-1.0 mg/dL (0.2-1.0); WBC URINE 1 /hpf (0-5)
[2017-04-14 12:30] LABS: BASO % 0.5 % (0.0-2.0); EOS # 0.2 K/uL (0.0-0.7); EOS % 2.6 % (0.0-4.0); HEMATOCRIT 42.3 % (34.0-47.0); LYMPH # 2.5 K/uL (1.0-4.3); MEAN CELL VOLUME 88.5 fl (81.0-99.0); MEAN CORPUSCULAR HGB CONC 32.7 g/dL (33.0-37.0); MEAN PLATELET VOLUME 7.8 fl (7.2-11.7); MONO # 0.8 K/uL (0.0-0.8); MONO % 9.6 % (0.0-10.0); NEUT # 5.1 K/uL (1.8-7.0); NEUT % 58.3 % (50.0-75.0); RED CELL DISTRIBUTION WIDTH 13.9 % (11.5-14.5); WHITE BLOOD COUNT 8.8 K/uL (4.8-10.8)
[2017-04-14 12:48] LABS: ALB/GLOB RATIO 1.5 (1.0-2.1); ALKALINE PHOSPHATASE 81 U/L (38-126); ALT/SGPT 30 U/L (9-52); AST/SGOT 21 U/L (14-36); BILIRUBIN,TOTAL 0.4 mg/dl (0.2-1.3); BLOOD UREA NITROGEN 10 mg/dl (7-17); CALCIUM 10.4 mg/dL (8.4-10.2); CARBON DIOXIDE 23 mmol/L (22-30); CHLORIDE 109 mmol/L (98-107); GFR AFRICAN-AMERICAN > 60; GLUCOSE,RANDOM 88 mg/dL (65-105); POTASSIUM 4.1 MMOL/L (3.6-5.0); SODIUM 146 mmol/l (132-148); TOTAL PROTEIN 7.9 G/DL (6.3-8.2)
--- NOTE | 2017-04-15 12:23 | CARD ---
APPROVED REPORT EKG Measurement Heart [id number] <Conclusion> Normal sinus rhythm Normal ECG
== END 2017-04-14 13:50 | disposition home or self-care (01) ==
LOC: H.ER 10:25
DX: R42 Dizziness and giddiness (principal); R10.9 Unspecified abdominal pain; I12.9 Hypertensive chronic kidney disease with stage 1 through stage 4 chronic kidney disease, or unspecified chronic kidney disease; N18.9 Chronic kidney disease, unspecified
CPT/HCPCS: 80053; 81003; 84484; 85025; 87086; 93005; 96374; 99282; J2405; J7040

== ENCOUNTER 2017-04-28 12:01 | Emergency (ER) | payer MEDICARE, MEDICAID ==
[2017-04-28 12:01] VITALS: BMI 30.2
[2017-04-28 12:08] VITALS: RESP 16
[2017-04-28] MEDS ORDERED: Sodium Chloride 0.9% 1,000 ML IV STA (12:23)
--- NOTE | 2017-04-28 12:35 | ED PDOC ---
HPI: Back Time Seen by Provider: 04/28/17 12:13 Chief Complaint (Nursing): Back Pain Chief Complaint (Provider): Flank pain History Per: Patient History/Exam Limitations: no limitations Onset/Duration Of Symptoms: Days Current Symptoms Are (Timing): Still Present Additional Complaint(s): Wendy Rae is a 76 year old female who presents to the ED for evaluation of chronic left flank pain, associated with nausea. No vomiting, diarrhea, fever , or urinary symptoms. Patient also reports possible syncopal episode 1 week ago with no recurrence. She states past medical history of kidney stones and lithotripsy. PMD: Jamaal Ramos Past Medical History Reviewed: Historical Data, Nursing Documentation, Vital Signs Vital Signs: Last Vital Signs Temp 98.3 F 04/28/17 12:05 Pulse 71 04/28/17 12:05 Resp 16 04/28/17 12:05 BP 110/60 04/28/17 12:05 Pulse Ox 98 04/28/17 12:05 - Medical History PMH: Anxiety, Arthritis, Bipolar Disorder, COPD, Depression, Gastritis, HTN, Hypercholesterolemia, Kidney Stones, Chronic Kidney Disease Denies: Diabetes, Hepatitis, HIV, Seizures, Sexually Transmitted Disease - Surgical History Surgical History: Tonsillectomy Denies: Pacemaker Other surgeries: Lithotripsy - Family History Family History: States: Unknown Family Hx - Immunization History Hx Influenza Vaccination: Yes Hx Pneumococcal Vaccination: No - Home Medications Home Medications: Ambulatory Orders Medication Instructions Recorded Alprazolam [Xanax] 0.5 mg PO TID PRN 03/11/17 Amlodipine Besylate/Benazepril 1 tab PO DAILY 03/11/17 [Amlodipine-Benazepril 10-20 mg] Brexpiprazole [Rexulti] 0.5 mg PO DAILY 03/11/17 Carvedilol [Coreg] 25 mg PO DAILY 03/11/17 Levomilnacipran HCl [Fetzima] 120 mg PO DAILY 03/11/17 Linaclotide [Linzess] 145 mcg PO DAILY 03/11/17 Meclizine [Meclizine*] 25 mg PO BID PRN 03/11/17 Pantoprazole [Protonix EC Tab] 40 mg PO DAILY 03/11/17 Ranitidine HCl [Zantac] 150 mg PO DAILY 03/11/17 Rosuvastatin Calcium [Crestor] 10 mg PO DAILY 03/11/17 Zolpidem [Ambien] 10 mg PO HS 03/11/17 hydrALAZINE [Apresoline] 10 mg PO DAILY 03/11/17 traZODone [Desyrel] 100 mg PO HS 03/11/17 Ibuprofen [Motrin Tab] 600 mg PO Q8 PRN #60 tab 03/15/17 - Allergies Allergies/Adverse Reactions: Allergies Allergy/AdvReac Type Severity Reaction Status Date / Time No Known Allergies Allergy Verified 04/28/17 12:05 Review of Systems ROS Statement: Except As Marked, All Systems Reviewed And Found Negative Constitutional: Negative for: Fever Gastrointestinal: Positive for: Nausea, Abdominal Pain (left flank). Negative for: Vomiting, Diarrhea Genitourinary Female: Negative for: Dysuria, Frequency, Incontinence Physical Exam - Reviewed Nursing Documentation Reviewed: Yes Vital Signs Reviewed: Yes - Physical Exam Appears: Positive for: Non-toxic, No Acute Distress Head Exam: Positive for: ATRAUMATIC, NORMAL INSPECTION, NORMOCEPHALIC Skin: Positive for: Normal Color, Warm, Dry. Negative for: Rash Eye Exam: Positive for: EOMI, Normal appearance, PERRL Neck: Positive for: Normal, Painless ROM, Supple Cardiovascular/Chest: Positive for: Regular Rate, Rhythm. Negative for: Murmur Respiratory: Positive for: Normal Breath Sounds. Negative for: Accessory Muscle Use, Respiratory Distress Gastrointestinal/Abdominal: Positive for: Normal Exam, Soft. Negative for: Tenderness Back: Positive for: Normal Inspection. Negative for: L CVA Tenderness, R CVA Tenderness Extremity: Positive for: Normal ROM. Negative for: Deformity Neurologic/Psych: Positive for: Alert, Oriented (x3). Negative for: Motor/ Sensory Deficits - Laboratory Results Result Diagrams: 04/28/17 12:41 04/28/17 12:41 - ECG O2 Sat by Pulse Oximetry: 98 (RA) Pulse Ox Interpretation: Normal Medical Decision Making Medical Decision Making: Time: 12:23 Initial Plan: * VBG * EKG * CMP * CBC w/ differential * Blood culture * Urine dipstick * NS IV 1000 ml at 100 mls/hr * Toradol 30 mg IV * Reevaluation Time: 14:07 * Patient continues to complain of pain * Ordered CT Abd/Pelvis without contrast * Will transfer patient to [facility] for CT Scribe Attestation: Documented by Barbara Perera, acting as a scribe for Lewis Hunter MD Provider Scribe Attestation: All medical record entries made by the Scribe were at my direction and personally dictated by me. I have reviewed the chart and agree that the record accurately reflects my personal performance of the history, physical exam, medical decision making, and the department course for this patient. I have also personally directed, reviewed, and agree with the discharge instructions and disposition. Disposition - Clinical Impression Clinical Impression: Renal calculus, left - Patient ED Disposition Is Patient to be Admitted: Transfer of Care - Disposition Disposition: Transfer of Care Disposition Time: 15:00 Condition: FAIR Forms: [employer] (Arabic) Patient Signed Over To: Diana Liu
[2017-04-28 12:51] LABS: BASO # 0.1 K/uL (0.0-0.2); BASO % 0.9 % (0.0-2.0); EOS # 0.2 K/uL (0.0-0.7); EOS % 1.6 % (0.0-4.0); HEMATOCRIT 39.6 % (34.0-47.0); LYMPH # 2.2 K/uL (1.0-4.3); LYMPH % 22.9 % (20.0-40.0); MEAN CELL VOLUME 88.8 fl (81.0-99.0); MEAN CORPUSCULAR HEMOGLOBIN 29.9 pg (27.0-31.0); MEAN CORPUSCULAR HGB CONC 33.7 g/dL (33.0-37.0); MEAN PLATELET VOLUME 8.1 fl (7.2-11.7); MONO # 0.9 K/uL (0.0-0.8); MONO % 8.9 % (0.0-10.0); NEUT # 6.3 K/uL (1.8-7.0); NEUT % 65.7 % (50.0-75.0); NRBC % 0.5 % (0.0-0.0); RED CELL DISTRIBUTION WIDTH 13.6 % (11.5-14.5); WHITE BLOOD COUNT 9.7 K/uL (4.8-10.8)
[2017-04-28 12:55] LABS: VENOUS BLOOD GAS PCO2 48 mmHg (40-60)
[2017-04-28 13:17] LABS: ALB/GLOB RATIO 1.5 (1.0-2.1); ALKALINE PHOSPHATASE 60 U/L (38-126); ALT/SGPT 29 U/L (9-52); AST/SGOT 24 U/L (14-36); BILIRUBIN,TOTAL 0.2 mg/dl (0.2-1.3); BLOOD UREA NITROGEN 11 mg/dl (7-17); CALCIUM 9.8 mg/dL (8.4-10.2); CARBON DIOXIDE 27 mmol/L (22-30); CHLORIDE 103 mmol/L (98-107); GFR AFRICAN-AMERICAN > 60; GLUCOSE,RANDOM 110 mg/dL (65-105); POTASSIUM 4.3 MMOL/L (3.6-5.0); SODIUM 140 mmol/l (132-148)
[2017-04-28] MEDS ORDERED: Oxycodone/Acetaminophen 5/325 mg Tab PO STA (14:27)
[2017-04-28] MEDS ORDERED: Oxycodone/Acetaminophen 5/325 mg Tab ONE (14:29)
[2017-04-28 14:51] VITALS: O2SAT 98
--- NOTE | 2017-04-28 15:21 | ED PDOC ---
- Laboratory Results Result Diagrams: 04/28/17 12:41 04/28/17 12:41 - ECG O2 Sat by Pulse Oximetry: 98 (RA) Pulse Ox Interpretation: Normal Medical Decision Making Medical Decision Making: Time: 15:[address] Lewis Hunter. Pending ER work up, reevaluation, and final disposition. Accession No. : [id number] Patient Name / ID : ANGELO MOELLER / [id number] Exam Date : 04/28/2017 15:50:22 ( Approved ) Study Comment : Sex / Age : F / 76Y Creator : Juan C Ferguson MD Dictator : Transportation Aid : Cloth Weaver : Juan C Ferguson MD Approver2 : Report Date : 04/28/2017 16:46:07 My Comment : PROCEDURE: CT scan brain dated 04/28/2017. . HISTORY: Rule out hemorrhage. COMPARISON: Comparison made with CT scan brain 03/11/2017. TECHNIQUE: Axial computed tomography images were obtained through the head/brain without intravenous contrast. Radiation dose: Total exam DLP = 866.13 mGy-cm. This CT exam was performed using one or more of the following dose reduction techniques: Automated exposure control, adjustment of the mA and/or kV according to patient size, and/or use of iterative reconstruction technique. FINDINGS: HEMORRHAGE: No acute parenchymal, subarachnoid or extra-axial hemorrhage. BRAIN: Mild -moderate diffuse/confluent chronic appearing ischemic changes seen extending peripherally into the deep and subcortical white matter both cerebral hemispheres ; most conspicuous in the parietal regions. There may also small lacunar type infarct changes in the left subinsular region and possibly along the posterior margin left caudate head No obvious parenchymal nor extra-axial mass or collection seen on this noncontrast study. Moderate to fairly significant central volume loss evidenced by disproportionate enlargement of the ventricles as compared sulci. Mild vascular calcifications both carotid siphons VENTRICLES: No obstructive hydrocephalus. Incidental note made of a cavum septum pellucidum and vergae. CALVARIUM: No acute calvarial fractures PARANASAL SINUSES: Minor mucosal thickening noted within few ethmoid air cells and sphenoid sinus. MASTOID AIR CELLS: Unremarkable as visualized. No inflammatory changes. OTHER FINDINGS: The orbits are incompletely visualized however no obvious gross orbital abnormality seen on images presented. IMPRESSION: No acute intracranial hemorrhage. 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 Moderate central volume loss. Accession No. : [id number] Patient Name / ID : ANGELO MOELLER / [id number] Exam Date : 04/28/2017 15:54:11 ( Approved ) Study Comment : Sex / Age : F / 76Y Creator : Juan C Ferguson MD Dictator : Transportation Aid : Cloth Weaver : Juan C Ferguson MD Approver2 : Report Date : 04/28/2017 17:10:13 My Comment : PROCEDURE: CT Abdomen and Pelvis without intravenous contrast HISTORY: r/o kidney stone COMPARISON: Comparison made with CT scan of the CT scan of the chest dated 03/11/2017 which image the upper abdomen. Comparison also made with prior CT scan of the abdomen and pelvis dated 03/07/2017. Dated 03/11/2017. None. TECHNIQUE: Technique. Contrast Dose: 754.95 Radiation dose: Total exam DLP = mGy-cm. This CT exam was performed using one or more of the following dose reduction techniques: Automated exposure control, adjustment of the mA and/or kV according to patient size, and/or use of iterative reconstruction technique. FINDINGS: LOWER THORAX: Heart remains enlarged. No significant pericardial effusion. Lung bases are clear without infiltrate effusion or basilar pneumothorax. There is a tiny hiatal hernia with slight wall thickening of the distal esophagus that could be due to protrusion of gastric mucosa the possibility of esophagitis or other intrinsic/invasive wall lesion not excluded. LIVER: The liver is enlarged 20.1 cm in CC dimension however there does appear to be a somewhat foreshortened left lobe liver. Findings could be due to Lj's lobe. . Re- demonstrated is a tiny approximately 4.35 mm elliptical shaped low attenuation superior aspect right lobe liver near the diaphragmatic dome is too small to characterize though this most likely represents a tiny cyst given the opacity is estimated approximately in the mid teens. There appears to be an additional approximately 4 mm elliptical shaped low-attenuation focus posterior aspect right lobe liver which exhibits Hounsfield units in the upper 30s. This could represent a small hemangioma. Followup interval could be performed to assess stability. GALLBLADDER AND BILE DUCTS: Gallbladder is physiologically distended. No evidence of intraluminal gallbladder calculi. PANCREAS: Pancreas appears grossly unremarkable without masses collections or calcifications. . SPLEEN: Spleen exhibits normal size and attenuation pattern without mass collection or calcification. ADRENALS: Again seen is a rounded approximately at 2.4 x 2.4 cm left adrenal mass most likely representing adenoma of with Hounsfield units in the mid single digits. Right adrenal gland unremarkable. KIDNEYS AND URETERS: Kidneys demonstrate relatively symmetric size. Suspect vascular calcification upper pole left kidney. There is a additional somewhat triangular-shaped nonobstructing calcification lower pole collecting system left kidney measuring approximately with the left delayed of this foraminal shaped calcification. No evidence of obstruction. Re- demonstrated is a round 2.4 x 2.4 cm cyst mid to lower pole left kidney unchanged. . Minor infiltration changes seen in the left perinephric fat. Right kidney unremarkable without evidence of obstructing calculi or hydronephrosis. VASCULATURE: Vascular calcifications of the abdominal aorta and iliac arteries. No evidence of abdominal aortic aneurysm. BOWEL: Evaluation of the bowel is somewhat limited due to the lack of oral contrast. Stomach is incompletely distended which presumably accounts for thick-walled appearance. Gastritis or other intrinsic/invasive wall lesion not excluded. Visualized loops of small bowel exhibit normal contour and caliber. No evidence of acute mechanical small bowel obstruction. Stool and air seen throughout the colon. No definitive abnormal mural thickening. . Scattered colonic diverticula seen along the descending colon. APPENDIX: Normal-appearing appendix best seen on axial image number [id number]. PERITONEUM: No gross free intraperitoneal air. There are no free or loculated fluid collections identified. . . Tiny fat containing umbilical hernia. LYMPH NODES: Unremarkable. No enlarged lymph nodes. BLADDER: Urinary bladder appears incompletely distended. No evidence of intraluminal urinary bladder calculi. REPRODUCTIVE: Aside from scattered periuterine calcifications the uterus appears grossly unremarkable. . BONES: Mild multilevel degenerative spondylosis of the lower thoracic and lumbar spine. No acute compression fractures. . Mild scoliotic deformity. S spell OTHER FINDINGS: Multiple tiny calcified injection granulomata left and to a lesser degree right buttock. IMPRESSION: Nonobstructing calcification lower pole right kidney. Questionable vascular calcification upper pole right kidney. Stable appearing cyst mid to lower pole left kidney. . Minor infiltration changes are seen in the left perinephric fat nonspecific. No change left adrenal adenoma. The liver is enlarged though with foreshortened left lobe findings could represent Lj's lobe. There are at least 2 low attenuation seen right lobe liver, which are too small to characterize however the more superiorly located low-attenuation focus could represent tiny cyst given single digits Hounsfield unit. The more inferior and posterior low-attenuation focus exhibits Hounsfield units in the upper 30s and is of uncertain etiology ; rule out hemangioma. Followup interval recommended to assess stability. . Diverticulosis. No radiographic evidence of acute diverticulitis. 530p DW pt findings and plan of care. Pt eager to eat. Stable for dc. Scribe Attestation: Documented by Barbara Perera, acting as a scribe for Diana Liu MD. Provider Scribe Attestation: All medical record entries made by the Scribe were at my direction and personally dictated by me. I have reviewed the chart and agree that the record accurately reflects my personal performance of the history, physical exam, medical decision making, and the department course for this patient. I have also personally directed, reviewed, and agree with the discharge instructions and disposition. Disposition Counseled Patient/Family Regarding: Studies Performed, Diagnosis, Need For Followup, Rx Given - Clinical Impression Clinical Impression: Renal calculus, left, UTI (urinary tract infection) - POA Present On Arrival: None - Disposition Referrals: Jamaal Ramos [Staff Provider] - 04/29/17 Disposition: Routine/Home Disposition Time: 17:00 Condition: STABLE Additional Instructions: CONTINUE ALL MEDICATIONS PRESCRIBED. Prescriptions: Nitrofurantoin Macrocrystals [Macrobid] 1 cap PO BID #14 cap Instructions: Urinary Tract Infection in Women (ED), Diverticulosis (ED) Print Language: PORTUGUESE
[2017-04-28 16:55] VITALS: TEMP 98.1
--- NOTE | 2017-04-28 17:12 | CT ---
PROCEDURE: CT Abdomen and Pelvis without intravenous contrast HISTORY: r/o kidney stone COMPARISON: Comparison made with CT scan of the CT scan of the chest dated 03/11/2017 which image the upper abdomen. Comparison also made with prior CT scan of the abdomen and pelvis dated 03/07/2017. Dated 03/11/2017. None. TECHNIQUE: Technique. Contrast Dose: 754.95 Radiation dose: Total exam DLP = mGy-cm. This CT exam was performed using one or more of the following dose reduction techniques: Automated exposure control, adjustment of the mA and/or kV according to patient size, and/or use of iterative reconstruction technique. FINDINGS: LOWER THORAX: Heart remains enlarged. No significant pericardial effusion. Lung bases are clear without infiltrate effusion or basilar pneumothorax. There is a tiny hiatal hernia with slight wall thickening of the distal esophagus that could be due to protrusion of gastric mucosa the possibility of esophagitis or other intrinsic/invasive wall lesion not excluded. LIVER: The liver is enlarged 20.1 cm in CC dimension however there does appear to be a somewhat foreshortened left lobe liver. Findings could be due to Lj's lobe. . Re- demonstrated is a tiny approximately 4.35 mm elliptical shaped low attenuation superior aspect right lobe liver near the diaphragmatic dome is too small to characterize though this most likely represents a tiny cyst given the opacity is estimated approximately in the mid teens. There appears to be an additional approximately 4 mm elliptical shaped low-attenuation focus posterior aspect right lobe liver which exhibits Hounsfield units in the upper 30s. This could represent a small hemangioma. Followup interval could be performed to assess stability. GALLBLADDER AND BILE DUCTS: Gallbladder is physiologically distended. No evidence of intraluminal gallbladder calculi. PANCREAS: Pancreas appears grossly unremarkable without masses collections or calcifications. . SPLEEN: Spleen exhibits normal size and attenuation pattern without mass collection or calcification. ADRENALS: Again seen is a rounded approximately at 2.4 x 2.4 cm left adrenal mass most likely representing adenoma of with Hounsfield units in the mid single digits. Right adrenal gland unremarkable. KIDNEYS AND URETERS: Kidneys demonstrate relatively symmetric size. Suspect vascular calcification upper pole left kidney. There is a additional somewhat triangular-shaped nonobstructing calcification lower pole collecting system left kidney measuring approximately with the left delayed of this foraminal shaped calcification. No evidence of obstruction. Re- demonstrated is a round 2.4 x 2.4 cm cyst mid to lower pole left kidney unchanged. . Minor infiltration changes seen in the left perinephric fat. Right kidney unremarkable without evidence of obstructing calculi or hydronephrosis. VASCULATURE: Vascular calcifications of the abdominal aorta and iliac arteries. No evidence of abdominal aortic aneurysm. BOWEL: Evaluation of the bowel is somewhat limited due to the lack of oral contrast. Stomach is incompletely distended which presumably accounts for thick-walled appearance. Gastritis or other intrinsic/invasive wall lesion not excluded. Visualized loops of small bowel exhibit normal contour and caliber. No evidence of acute mechanical small bowel obstruction. Stool and air seen throughout the colon. No definitive abnormal mural thickening. . Scattered colonic diverticula seen along the descending colon. APPENDIX: Normal-appearing appendix best seen on axial image number [id number]. PERITONEUM: No gross free intraperitoneal air. There are no free or loculated fluid collections identified. . . Tiny fat containing umbilical hernia. LYMPH NODES: Unremarkable. No enlarged lymph nodes. BLADDER: Urinary bladder appears incompletely distended. No evidence of intraluminal urinary bladder calculi. REPRODUCTIVE: Aside from scattered periuterine calcifications the uterus appears grossly unremarkable. . BONES: Mild multilevel degenerative spondylosis of the lower thoracic and lumbar spine. No acute compression fractures. . Mild scoliotic deformity. S spell OTHER FINDINGS: Multiple tiny calcified injection granulomata left and to a lesser degree right buttock. IMPRESSION: Nonobstructing calcification lower pole right kidney. Questionable vascular calcification upper pole right kidney. Stable appearing cyst mid to lower pole left kidney. . Minor infiltration changes are seen in the left perinephric fat nonspecific. No change left adrenal adenoma. The liver is enlarged though with foreshortened left lobe findings could represent Lj's lobe. There are at least 2 low attenuation seen right lobe liver, which are too small to characterize however the more superiorly located low-attenuation focus could represent tiny cyst given single digits Hounsfield unit. The more inferior and posterior low-attenuation focus exhibits Hounsfield units in the upper 30s and is of uncertain etiology ; rule out hemangioma. Followup interval recommended to assess stability. . Diverticulosis. No radiographic evidence of acute diverticulitis.
--- NOTE | 2017-04-28 17:16 | CT ---
PROCEDURE: CT scan brain dated 04/28/2017. . HISTORY: Rule out hemorrhage. COMPARISON: Comparison made with CT scan brain 03/11/2017. TECHNIQUE: Axial computed tomography images were obtained through the head/brain without intravenous contrast. Radiation dose: Total exam DLP = 866.13 mGy-cm. This CT exam was performed using one or more of the following dose reduction techniques: Automated exposure control, adjustment of the mA and/or kV according to patient size, and/or use of iterative reconstruction technique. FINDINGS: HEMORRHAGE: No acute parenchymal, subarachnoid or extra-axial hemorrhage. BRAIN: Mild -moderate diffuse/confluent chronic appearing ischemic changes seen extending peripherally into the deep and subcortical white matter both cerebral hemispheres ; most conspicuous in the parietal regions. There may also small lacunar type infarct changes in the left subinsular region and possibly along the posterior margin left caudate head No obvious parenchymal nor extra-axial mass or collection seen on this noncontrast study. Moderate to fairly significant central volume loss evidenced by disproportionate enlargement of the ventricles as compared sulci. Mild vascular calcifications both carotid siphons VENTRICLES: No obstructive hydrocephalus. Incidental note made of a cavum septum pellucidum and vergae. CALVARIUM: No acute calvarial fractures PARANASAL SINUSES: Minor mucosal thickening noted within few ethmoid air cells and sphenoid sinus. MASTOID AIR CELLS: Unremarkable as visualized. No inflammatory changes. OTHER FINDINGS: The orbits are incompletely visualized however no obvious gross orbital abnormality seen on images presented. IMPRESSION: No acute intracranial hemorrhage. 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 Moderate central volume loss.
[2017-04-28] MEDS ORDERED: Alum-Mag Hydrox-Simethicone Susp (30 mL) PO STA (17:30)
[2017-04-28 18:53] VITALS: BP 147/98; PULSE 85
--- NOTE | 2017-04-30 10:51 | CARD ---
APPROVED REPORT EKG Measurement Heart [id number] <Conclusion> Normal sinus rhythm Normal ECG
== END 2017-04-28 19:21 | disposition home or self-care (01) ==
LOC: H.ER 12:01
DX: N39.0 Urinary tract infection, site not specified (principal); N20.0 Calculus of kidney; K57.90 Diverticulosis of intestine, part unspecified, without perforation or abscess without bleeding; J44.9 Chronic obstructive pulmonary disease, unspecified; I12.9 Hypertensive chronic kidney disease with stage 1 through stage 4 chronic kidney disease, or unspecified chronic kidney disease; F31.9 Bipolar disorder, unspecified; E78.00 Pure hypercholesterolemia, unspecified; F41.9 Anxiety disorder, unspecified; Z86.73 Personal history of transient ischemic attack (TIA), and cerebral infarction without residual deficits
CPT/HCPCS: 70450; 74176; 80053; 82803; 82948; 85025; 87040; 93005; 96374; 99283; J1885; J7040

== ENCOUNTER 2017-05-20 15:35 | Emergency (ER) | payer MEDICAID, MEDICARE ==
[2017-05-20 15:35] VITALS: BMI 30.2
[2017-05-20 15:39] VITALS: BP 171/90; PULSE 81; RESP 19; TEMP 98.4; O2SAT 100
[2017-05-20 17:49] LABS: BASO # 0.1 K/uL (0.0-0.2); BASO % 0.9 % (0.0-2.0); EOS # 0.2 K/uL (0.0-0.7); EOS % 2.6 % (0.0-4.0); HEMATOCRIT 43.1 % (34.0-47.0); LYMPH # 2.2 K/uL (1.0-4.3); LYMPH % 25.5 % (20.0-40.0); MEAN CORPUSCULAR HEMOGLOBIN 29.7 pg (27.0-31.0); MEAN CORPUSCULAR HGB CONC 33.4 g/dL (33.0-37.0); MEAN PLATELET VOLUME 7.7 fl (7.2-11.7); MONO # 0.5 K/uL (0.0-0.8); MONO % 6.2 % (0.0-10.0); NEUT # 5.7 K/uL (1.8-7.0); NEUT % 64.8 % (50.0-75.0); NRBC % 0.2 % (0.0-0.0); RED CELL DISTRIBUTION WIDTH 13.4 % (11.5-14.5); WHITE BLOOD COUNT 8.8 K/uL (4.8-10.8)
[2017-05-20 17:55] LABS: ALCOHOL SERUM < 10 mg/dl (0-10); CALCIUM 10.2 mg/dL (8.4-10.2); CARBON DIOXIDE 24 mmol/L (22-30); CHLORIDE 106 mmol/L (98-107); GFR AFRICAN-AMERICAN > 60; GLUCOSE,RANDOM 160 mg/dL (65-105); SODIUM 141 mmol/l (132-148)
[2017-05-20 18:12] LABS: BLOOD UREA NITROGEN 9 mg/dl (7-17); POTASSIUM 4.1 MMOL/L (3.6-5.0)
--- NOTE | 2017-05-20 18:20 | ED PDOC ---
Syncope/Near Syncope/Dizziness Time Seen by Provider: 05/20/17 16:38 Chief Complaint (Nursing): Syncope Chief Complaint (Provider): Syncope History Per: Patient History/Exam Limitations: no limitations Additional Complaint(s): 76 y/o female with a past medical history of hypertension, hypercholesterolemia , urinary tract infection (UTI) and chronic abdominal pain who presents to the emergency department after loss of consciousness with head injury about 45 minutes prior to arrival. Patient fell, hit her head, and passed out. Patient called the ambulance after she woke up. Reports she also has an abdominal pain. Denies fever, chills, or any further medical complaints. PMD: Dr. Jamaal Ramos MD Past Medical History Reviewed: Historical Data, Nursing Documentation, Vital Signs Vital Signs: Last Vital Signs Temp 98.4 F 05/20/17 15:37 Pulse 81 05/20/17 15:37 Resp 19 05/20/17 15:37 BP 171/90 H 05/20/17 15:37 Pulse Ox 100 05/20/17 15:37 - Medical History PMH: Anxiety, Arthritis, Bipolar Disorder, COPD, Depression, Gastritis, HTN, Hypercholesterolemia, Kidney Stones, Chronic Kidney Disease Denies: Diabetes, Hepatitis, HIV, Seizures, Sexually Transmitted Disease - Surgical History Surgical History: Tonsillectomy Denies: Pacemaker - Family History Family History: States: Unknown Family Hx - Immunization History Hx Influenza Vaccination: Yes Hx Pneumococcal Vaccination: No - Home Medications Home Medications: Ambulatory Orders Medication Instructions Recorded Alprazolam [Xanax] 0.5 mg PO TID PRN 03/11/17 Amlodipine Besylate/Benazepril 1 tab PO DAILY 03/11/17 [Amlodipine-Benazepril 10-20 mg] Brexpiprazole [Rexulti] 0.5 mg PO DAILY 03/11/17 Carvedilol [Coreg] 25 mg PO DAILY 03/11/17 Levomilnacipran HCl [Fetzima] 120 mg PO DAILY 03/11/17 Linaclotide [Linzess] 145 mcg PO DAILY 03/11/17 Meclizine [Meclizine*] 25 mg PO BID PRN 03/11/17 Pantoprazole [Protonix EC Tab] 40 mg PO DAILY 03/11/17 Ranitidine HCl [Zantac] 150 mg PO DAILY 03/11/17 Rosuvastatin Calcium [Crestor] 10 mg PO DAILY 03/11/17 Zolpidem [Ambien] 10 mg PO HS 03/11/17 hydrALAZINE [Apresoline] 10 mg PO DAILY 03/11/17 traZODone [Desyrel] 100 mg PO HS 03/11/17 Ibuprofen [Motrin Tab] 600 mg PO Q8 PRN #60 tab 03/15/17 Dicyclomine [Bentyl] 20 mg PO BID PRN #30 tab 04/28/17 Nitrofurantoin Macrocrystals 1 cap PO BID #14 cap 04/28/17 [Macrobid] Omeprazole Magnesium [Prilosec Otc] 20 mg PO DAILY #30 tcp 04/28/17 - Allergies Allergies/Adverse Reactions: Allergies Allergy/AdvReac Type Severity Reaction Status Date / Time No Known Allergies Allergy Verified 04/28/17 12:05 Review of Systems ROS Statement: Except As Marked, All Systems Reviewed And Found Negative (As per HPI, otherwise negative) Constitutional: Positive for: Other (Loss of consciousness status post fall with head injury). Negative for: Fever, Chills Gastrointestinal: Positive for: Abdominal Pain Physical Exam - Reviewed Nursing Documentation Reviewed: Yes Vital Signs Reviewed: Yes - Physical Exam Appears: Positive for: Non-toxic, No Acute Distress Head Exam: Positive for: ATRAUMATIC, NORMAL INSPECTION, NORMOCEPHALIC Skin: Positive for: Warm, Dry Eye Exam: Positive for: EOMI ENT: Positive for: Normal ENT Inspection Neck: Positive for: Painless ROM, Supple Cardiovascular/Chest: Positive for: Regular Rate, Rhythm. Negative for: Tachycardia Respiratory: Positive for: Normal Breath Sounds. Negative for: Rales, Rhonchi, Wheezing, Respiratory Distress Gastrointestinal/Abdominal: Positive for: Soft. Negative for: Tenderness, Distended, Guarding Extremity: Positive for: Normal ROM Neurologic/Psych: Positive for: Alert, Oriented - Laboratory Results Result Diagrams: 05/20/17 17:42 05/20/17 17:42 - ECG O2 Sat by Pulse Oximetry: 100 (RA) Pulse Ox Interpretation: Normal Medical Decision Making Medical Decision Making: Time: 1703 Initial Impression: Head injury with loss of consciousness less likely syncopal episode and chronic abdominal pain. Initial Plan: --Head CT --EKG --Morphine 2 mg IVP --Alcohol Serum --BMP --Troponin I --CBC w/ diff --Reevaluation Time: 1741 --Troponin I: < 0.0120 --Alcohol, Quantitative: < 10 Time: 1836 --Head CT FINDINGS: Brain: Moderate brain volume loss. Periventricular and subcortical hypodensities are nonspecific and could reflect chronic microvascular ischemic changes. No hemorrhage. Ventricles: Probable cavum septum pellucidum et vergae. Bones/joints: Unremarkable. No acute fracture. Soft tissues: Unremarkable. Sinuses: Unremarkable as visualized. No acute sinusitis. Mastoid air cells: Unremarkable as visualized. No mastoid effusion. IMPRESSION: No acute findings. --EKG: Normal sinus rhythm of 74 bpm. Normal QRS. No ST changes. Time: 1899 --Patient transferred to Dr. Spence. --Pending imaging and reassessment. Scribe~Attestation: Documented by Eileen Forte, acting as a scribe for Sohan Taylor MD. Provider Scribe~Attestation: All medical record entries made by the Scribe were at my direction and personally dictated by me. I have reviewed the chart and agree that the record accurately reflects my personal performance of the history, physical exam, medical decision making, and the department course for this patient. I have also personally directed, reviewed, and agree with the discharge instructions and disposition. Disposition - Clinical Impression Clinical Impression: Fall, Head injury, Abdominal pain - Patient ED Disposition Is Patient to be Admitted: No Doctor Will See Patient In The: Office Counseled Patient/Family Regarding: Studies Performed, Diagnosis, Need For Followup - Disposition Referrals: [facility] [Outside] [facility] [Outside] Disposition: Transfer of Care (Dr. spence) Disposition Time: 19:00 Condition: STABLE Additional Instructions: follow up with your primary doctor in 1-2 days return to the ED with any worsening or concerning symptoms Instructions: Fall Prevention for Older Adults (ED) Forms: [employer] (Icelandic) Patient Signed Over To: Mere Spence
--- NOTE | 2017-05-20 19:36 | ED PDOC ---
- Laboratory Results Result Diagrams: 05/20/17 17:42 05/20/17 17:42 - ECG O2 Sat by Pulse Oximetry: 100 (RA) Pulse Ox Interpretation: Normal Medical Decision Making Medical Decision Making: Time: 1899 --Patient endorsed from Dr. Taylor to me. --Pending imaging and reassessment. plan as per DR girard was to dc if imaging was negative. Time: 2024 Upon provider reevaluation patient is feeling better, is medically stable, and requires no further treatment in the ED at this time. Patient will be discharge home. Counseling was provided and all questions were answered regarding diagnosis and need for follow up with referred clinics. There is agreement to discharge plan. Return if symptoms persist or worsen. CT - see full report/ no acute process pt stable for dc. made awre. agree w plan. Clinical Impression: Fall Scribe~Attestation: Documented by Eileen Forte, acting as a scribe for Mere Zaman MD. Provider Scribe~Attestation: All medical record entries made by the Scribe were at my direction and personally dictated by me. I have reviewed the chart and agree that the record accurately reflects my personal performance of the history, physical exam, medical decision making, and the department course for this patient. I have also personally directed, reviewed, and agree with the discharge instructions and disposition. Disposition - Clinical Impression Clinical Impression: Fall - POA Present On Arrival: None - Disposition Referrals: [facility] [Outside] [facility] [Outside] Disposition: Routine/Home Disposition Time: 20:30 Condition: IMPROVED Additional Instructions: follow up with your primary doctor in 1-2 days return to the ED with any worsening or concerning symptoms Instructions: Fall Prevention for Older Adults (ED) Forms: [employer] (Gabonese)
--- NOTE | 2017-05-21 08:05 | CARD ---
APPROVED REPORT EKG Measurement Heart [id number] <Conclusion> Normal sinus rhythm Left axis deviation Cannot rule out Anterior infarct, age undetermined Abnormal ECG
--- NOTE | 2017-05-21 09:09 | CT ---
PROCEDURE: CT HEAD WITHOUT CONTRAST. HISTORY: syncope COMPARISON: 04/28/2017 TECHNIQUE: Axial computed tomography images were obtained through the head/brain without intravenous contrast. Radiation dose: Total exam DLP = 1255.92 mGy-cm. This CT exam was performed using one or more of the following dose reduction techniques: Automated exposure control, adjustment of the mA and/or kV according to patient size, and/or use of iterative reconstruction technique. FINDINGS: HEMORRHAGE: No intracranial hemorrhage. BRAIN: No mass effect or edema. Cortical atrophy, periventricular small vessel disease VENTRICLES: Unremarkable. No hydrocephalus. CALVARIUM: Unremarkable. PARANASAL SINUSES: Unremarkable as visualized. No significant inflammatory changes. MASTOID AIR CELLS: Unremarkable as visualized. No inflammatory changes. OTHER FINDINGS: None. IMPRESSION: No acute intracranial abnormalities. No significant findings to account for the clinical presentation. No significant interval change compared to the prior examination(s). Concordant results (preliminary interpretation) provided by [employer]. Procedure Completed: 18:01 Preliminary ([employer]) Report: Dictated and Authenticated: 18:37 Final Interpretation: 09:07 May 21, 2017.
== END 2017-05-20 20:52 | disposition home or self-care (01) ==
LOC: H.ER 15:35
DX: S09.90XA Unspecified injury of head, initial encounter (principal); R10.9 Unspecified abdominal pain; W19.XXXA Unspecified fall, initial encounter; Y92.89 Other specified places as the place of occurrence of the external cause; E78.00 Pure hypercholesterolemia, unspecified; F31.9 Bipolar disorder, unspecified; F41.9 Anxiety disorder, unspecified; I12.9 Hypertensive chronic kidney disease with stage 1 through stage 4 chronic kidney disease, or unspecified chronic kidney disease; J44.9 Chronic obstructive pulmonary disease, unspecified; Z87.442 Personal history of urinary calculi
CPT/HCPCS: 70450; 80048; 84484; 85025; 93005; 96374; 99284; G0480; J2270

== ENCOUNTER 2018-01-19 09:50 | Emergency (ER) | payer MEDICARE, MEDICAID ==
[2018-01-19 09:54] VITALS: TEMP 99.5; BMI 27.4
--- NOTE | 2018-01-19 10:09 | ED PDOC ---
Lower Extremity Pain/Injury Time Seen by Provider: 01/19/18 10:00 Chief Complaint (Nursing): Lower Extremity Problem/Injury History Per: Patient Onset/Duration Of Symptoms: Other (3 weeks) Current Symptoms Are (Timing): Still Present Severity: Moderate Pain Scale Rating Of: 4 Additional Complaint(s): Bilat knee pain x 3 weeks. No h/o trauma. Pain worse on ambulation. No improvement with Motrin and tramadol Past Medical History Vital Signs: Last Vital Signs Temp 99.5 F 01/19/18 09:52 Pulse 106 H 01/19/18 09:52 Resp 16 01/19/18 09:52 BP 137/102 H 01/19/18 09:52 Pulse Ox 98 01/19/18 09:52 - Medical History PMH: Anxiety, Arthritis, Bipolar Disorder, COPD, Depression, Gastritis, HTN, Hypercholesterolemia, Kidney Stones, Chronic Kidney Disease Denies: Diabetes, Hepatitis, HIV, Seizures, Sexually Transmitted Disease - Surgical History Surgical History: Tonsillectomy Denies: Pacemaker - Family History Family History: States: Unknown Family Hx - Immunization History Hx Influenza Vaccination: Yes Hx Pneumococcal Vaccination: No - Home Medications Home Medications: Ambulatory Orders Medication Instructions Recorded Alprazolam [Xanax] 0.5 mg PO TID PRN 03/11/17 Amlodipine Besylate/Benazepril 1 tab PO DAILY 03/11/17 [Amlodipine-Benazepril 10-20 mg] Carvedilol [Coreg] 25 mg PO DAILY 03/11/17 Levomilnacipran HCl [Fetzima] 120 mg PO DAILY 03/11/17 Linaclotide [Linzess] 145 mcg PO DAILY 03/11/17 Meclizine [Meclizine*] 25 mg PO BID PRN 03/11/17 Pantoprazole [Protonix EC Tab] 40 mg PO DAILY 03/11/17 Ranitidine HCl [Zantac] 150 mg PO DAILY 03/11/17 Rosuvastatin Calcium [Crestor] 10 mg PO DAILY 03/11/17 Zolpidem [Ambien] 10 mg PO HS 03/11/17 hydrALAZINE [Apresoline] 10 mg PO DAILY 03/11/17 traZODone [Desyrel] 100 mg PO HS 03/11/17 Lidocaine 5% [Lidoderm] 1 each TP DAILY #30 patch 05/27/17 traMADol [Ultram] 50 mg PO TID PRN #15 tab 05/27/17 Celecoxib [Celebrex] 100 mg PO BID #14 capsule 01/19/18 traMADol [Ultram] 50 mg PO Q8 #10 tab 01/19/18 - Allergies Allergies/Adverse Reactions: Allergies Allergy/AdvReac Type Severity Reaction Status Date / Time No Known Allergies Allergy Verified 05/26/17 19:03 Review of Systems Constitutional: Negative for: Fever Musculoskeletal: Positive for: Other (Knee pain) Neurological: Negative for: Weakness, Numbness Physical Exam - Physical Exam Appears: Positive for: No Acute Distress Skin: Positive for: Normal Color, Warm, DRY Extremity: Positive for: Other (Knees No swelling or deformity. ROM limited by pain. No crepitance) Neurologic/Psych: Positive for: Alert, Oriented. Negative for: Motor/Sensory Deficits - ECG O2 Sat by Pulse Oximetry: 98 Disposition - Clinical Impression Clinical Impression: Arthritis - Patient ED Disposition Is Patient to be Admitted: No Counseled Patient/Family Regarding: Studies Performed, Diagnosis, Need For Followup, Rx Given - Disposition Disposition: Routine/Home Disposition Time: 10:56 Condition: FAIR Prescriptions: Celecoxib [Celebrex] 100 mg PO BID #14 capsule traMADol [Ultram] 50 mg PO Q8 #10 tab Instructions: Osteoarthritis Forms: [employer] (Swedish)
--- NOTE | 2018-01-19 15:10 | RAD ---
Date of service: 01/19/2018 PROCEDURE: Bilateral Knee Radiographs. HISTORY: pain COMPARISON: None. FINDINGS: BONES: Bilateral knees. No evidence of acute displaced fracture nor dislocation. JOINTS: Right knee findings: :There is mild medial joint space narrowing with moderate-sized medial marginal osteophyte formation. Small osteophyte seen arising from the lateral tibial plateau. Small posterior patella osteophytes with small anterior superior patella enthesophyte. Questionable trace joint effusion. Left knee findings: . There is moderate medial joint space narrowing with prominent medial marginal osteophyte formation spurring of the medial tibial spine. Small posterior patellar osteophyte formation. Suspect a small suprapatellar joint effusion. Left knee: Normal. No osteoarthritis. SOFT TISSUES: Right Knee: Normal. Left Knee: Normal. JOINT EFFUSION: As above. OTHER FINDINGS: None. IMPRESSION: No acute fractures. Degenerative osteoarthritis both knees particularly involving medial compartments left greater than right
[2018-01-19 17:46] VITALS: BP 129/90; PULSE 92; RESP 18; O2SAT 99
== END 2018-01-19 17:00 | disposition home or self-care (01) ==
LOC: H.ER 09:50
DX: M17.9 Osteoarthritis of knee, unspecified (principal)
CPT/HCPCS: 73560; 96372; 99283; J1885

== ENCOUNTER 2018-03-17 15:26 | Emergency (ER) | payer MEDICARE, MEDICAID ==
[2018-03-17 15:27] VITALS: BMI 27.4
[2018-03-17 15:44] VITALS: TEMP 98.7; O2SAT 99
--- NOTE | 2018-03-17 18:31 | ED PDOC ---
HPI: Female Pain Time Seen by Provider: 03/17/18 17:29 Chief Complaint (Nursing): Female Genitourinary Chief Complaint (Provider): Female Genitourinary History Per: Patient History/Exam Limitations: no limitations Onset/Duration Of Symptoms: Waxing/Waning (x3 weeks) Current Symptoms Are (Timing): Still Present Additional Complaint(s): 77 y/o female presents to the ED for evaluation of urinary frequency and dysuria for the past three weeks. Patient reports of having noticing that her urine appeared brown in color. Patient has a history of kidney stones which required removal last year. Denies fever, abdominal pain, nausea, vomiting, back pain and flank pain. PMD: Jamaal Ramos Past Medical History Reviewed: Historical Data, Nursing Documentation, Vital Signs Vital Signs: Last Vital Signs Temp 98.7 F 03/17/18 15:42 Pulse 86 03/17/18 15:42 Resp 18 03/17/18 15:42 BP 127/78 03/17/18 15:42 Pulse Ox 99 03/17/18 15:42 - Medical History PMH: Anxiety, Arthritis, Bipolar Disorder, COPD, Depression, Gastritis, HTN, Hypercholesterolemia, Kidney Stones, Chronic Kidney Disease Denies: Diabetes, Hepatitis, HIV, Seizures, Sexually Transmitted Disease - Surgical History Surgical History: Tonsillectomy Denies: Pacemaker - Family History Family History: States: Unknown Family Hx - Immunization History Hx Influenza Vaccination: Yes Hx Pneumococcal Vaccination: No - Home Medications Home Medications: Ambulatory Orders Medication Instructions Recorded RX: Alprazolam [Xanax] 0.5 mg PO TID PRN 03/11/17 RX: Amlodipine Besylate/Benazepril 1 tab PO DAILY 03/11/17 [Amlodipine-Benazepril 10-20 mg] RX: Carvedilol [Coreg] 25 mg PO DAILY 03/11/17 RX: Levomilnacipran HCl [Fetzima] 120 mg PO DAILY 03/11/17 RX: Linaclotide [Linzess] 145 mcg PO DAILY 03/11/17 RX: Meclizine [Meclizine*] 25 mg PO BID PRN 03/11/17 RX: Pantoprazole [Protonix EC Tab] 40 mg PO DAILY 03/11/17 RX: Ranitidine HCl [Zantac] 150 mg PO DAILY 03/11/17 RX: Rosuvastatin Calcium [Crestor] 10 mg PO DAILY 03/11/17 RX: Zolpidem [Ambien] 10 mg PO HS 03/11/17 RX: hydrALAZINE [Apresoline] 10 mg PO DAILY 03/11/17 RX: traZODone [Desyrel] 100 mg PO HS 03/11/17 Lidocaine 5% [Lidoderm] 1 each TP DAILY #30 patch 05/27/17 traMADol [Ultram] 50 mg PO TID PRN #15 tab 05/27/17 Celecoxib [Celebrex] 100 mg PO BID #14 capsule 01/19/18 RX: traMADol [Ultram] 50 mg PO Q8 #10 tab 01/19/18 Sulfamethoxazole/Trimethoprim 1 tab PO BID #14 tab 03/17/18 [Bactrim DS 800 mg-160 mg] - Allergies Allergies/Adverse Reactions: Allergies Allergy/AdvReac Type Severity Reaction Status Date / Time No Known Allergies Allergy Verified 05/26/17 19:03 Review of Systems ROS Statement: Except As Marked, All Systems Reviewed And Found Negative Constitutional: Negative for: Fever Gastrointestinal: Negative for: Nausea, Vomiting, Abdominal Pain Genitourinary Female: Positive for: Dysuria, Frequency, Other (Urine Discoloration) Musculoskeletal: Negative for: Back Pain (or flank pain) Physical Exam - Reviewed Nursing Documentation Reviewed: Yes Vital Signs Reviewed: Yes - Physical Exam Appears: Positive for: No Acute Distress Cardiovascular/Chest: Positive for: Regular Rate, Rhythm. Negative for: Murmur Respiratory: Positive for: Normal Breath Sounds. Negative for: Respiratory Distress Gastrointestinal/Abdominal: Positive for: Normal Exam, Soft. Negative for: Tenderness Back: Positive for: Normal Inspection. Negative for: L CVA Tenderness, R CVA Tenderness - Laboratory Results Result Diagrams: 03/17/18 19:33 03/17/18 19:33 Urine dip results: Positive for: Leukocyte Esterase (large). Negative for: Blood, Nitrate, Ketones, Glucose, Bilirubin, Protein - ECG O2 Sat by Pulse Oximetry: 99 (RA) Pulse Ox Interpretation: Normal - Progress ED Course And Treament: CT abd/pelvis w/o contrast: negative. Rocephin 1gm IV ordered. Medical Decision Making Medical Decision Making: Time: 1809 Plan: -- CT Abd/Pelvis w/o PO or IV Contrast -- CMP -- ED Urine Dipstick -- CBC with Differentials -- Blood Culture -- Urine C & S -- IV Insertion -- Urinalysis Scribe Attestation: Documented by Kesha Yepez, acting as a scribe for Giovanni Barton PA-C. Provider Scribe Attestation: All medical record entries made by the Scribe were at my direction and personally dictated by me. I have reviewed the chart and agree that the record accurately reflects my personal performance of the history, physical exam, medical decision making, and the department course for this patient. I have also personally directed, reviewed, and agree with the discharge instructions and disposition. Disposition - Clinical Impression Clinical Impression: UTI (urinary tract infection) - Patient ED Disposition Is Patient to be Admitted: No - Disposition Referrals: Jamaal Ramos [Family Provider] - Disposition: Routine/Home Disposition Time: 20:00 Condition: IMPROVED Additional Instructions: FOLLOW UP WITH DR. RAMOS TOMORROW WITHOUT FAIL RETURN TO ED IMMEDIATELY IF SYMPTOMS WORSEN SAJAN STEPHENS, thank you for letting us take care of you today. Your provider was Mary Jo Archer MD and you were treated for FEMALE GENITOURINARY. The emergency medical care you received today was directed at your acute symptoms. If you were prescribed any medication, please fill it and take as directed. It may take several days for your symptoms to resolve. Return to the Emergency Department if your symptoms worsen, do not improve, or if you have any other problems. Please contact your doctor or call one of the physicians/clinics you have been referred to that are listed on the Patient Visit Information form that is included in your discharge packet. Bring any paperwork you were given at discharge with you along with any medications you are taking to your follow up visit. Our treatment cannot replace ongoing medical care by a primary care provider outside of the emergency department. Thank you for allowing the [facility] team to be part of your care today. If you had an X-Ray or CT scan: A Radiologist will review the ED reading if any change in treatment is needed we will contact you. If you had a blood, urine, or wound culture: It will take several days for the results, if any change in treatment is needed we will contact you. If you had an STI test: It will take 48 hours for the results. Please call after 1 week if you have not heard back. Prescriptions: Sulfamethoxazole/Trimethoprim [Bactrim DS 800 mg-160 mg] 1 tab PO BID #14 tab Instructions: Urinary Tract Infection, Adult (DC) Forms: [employer] (Greek)
--- NOTE | 2018-03-17 18:47 | CT ---
Date of service: 03/17/2018 PROCEDURE: CT Abdomen and Pelvis without intravenous contrast HISTORY: dysuria, hematuria, hx of kidney stones COMPARISON: Comparison is made with 05/26/2017 TECHNIQUE: Axial and reformatted coronal and sagittal CT images of the abdomen and pelvis were obtained without IV or oral contrast administration.. Contrast dose: Radiation dose: Total exam DLP = 767.09 mGy-cm. This CT exam was performed using one or more of the following dose reduction techniques: Automated exposure control, adjustment of the mA and/or kV according to patient size, and/or use of iterative reconstruction technique. FINDINGS: LOWER THORAX: No evidence of acute pathology LIVER: Mild hepatomegaly with findings suggestive of moderate hepatic steatosis. GALLBLADDER AND BILE DUCTS: Unremarkable. PANCREAS: Unremarkable. No gross lesion or ductal dilatation. SPLEEN: Unremarkable. ADRENALS: Again noted is 2.1 centimeter nodule at the left adrenal gland. KIDNEYS AND URETERS: There are foci of calcification noted in the left kidney. The largest focus of calcification noted at the lower pole measures 5.4 millimeter. No evidence of hydronephrosis or obstructing stone. There is 3 centimeters cyst at the mid to lower pole of the left kidney. VASCULATURE: Unremarkable. No aortic aneurysm. No aortic atherosclerotic calcification or mural plaque present. BOWEL: Scattered colonic diverticulosis are again noted without definite evidence of diverticulitis. No obstruction. No gross mural thickening. APPENDIX: No evidence of appendicitis. PERITONEUM: No evidence of free fluid free air or significant retroperitoneal lymphadenopathy. LYMPH NODES: Unremarkable. No enlarged lymph nodes. BLADDER: The urinary bladder is mildly distended demonstrate mild wall thickening. REPRODUCTIVE: Unremarkable. BONES: No acute fracture. OTHER FINDINGS: None. IMPRESSION: Stable foci of calcification/nonobstructing calculi in the left kidney. No evidence of hydronephrosis or hydroureter. Mildly distended urinary bladder demonstrate mild wall thickening. Stable 2.1 centimeter lesion at the left adrenal gland. Hepatic steatosis.
[2018-03-17 19:49] LABS: BASO # 0.1 K/uL (0.0-0.2); BASO % 0.8 % (0.0-2.0); EOS # 0.2 K/uL (0.0-0.7); HEMOGLOBIN 13.6 g/dL (12.0-16.0); LYMPH # 3.1 K/uL (1.0-4.3); LYMPH % 33.7 % (20.0-40.0); MEAN CELL VOLUME 91.3 fl (81.0-99.0); MEAN CORPUSCULAR HEMOGLOBIN 29.9 pg (27.0-31.0); MEAN CORPUSCULAR HGB CONC 32.7 g/dL (33.0-37.0); MEAN PLATELET VOLUME 7.6 fl (7.2-11.7); MONO # 0.7 K/uL (0.0-0.8); MONO % 7.8 % (0.0-10.0); NEUT # 5.2 K/uL (1.8-7.0); NEUT % 55.7 % (50.0-75.0); NRBC % 0.1 % (0.0-0.0); RBC 4.55 Mil/uL (3.80-5.20); RED CELL DISTRIBUTION WIDTH 13.3 % (11.5-14.5); WHITE BLOOD COUNT 9.3 K/uL (4.8-10.8)
[2018-03-17 20:00] LABS: ALB/GLOB RATIO 1.3 (1.0-2.1); ALBUMIN 4.1 g/dL (3.5-5.0); ALT/SGPT 22 U/L (9-52); AST/SGOT 29 U/L (14-36); BLOOD UREA NITROGEN 11 mg/dl (7-17); GFR NON-AFRICAN AMERICAN > 60
[2018-03-17 20:02] LABS: URINE BACTERIA OCC (<OCC); URINE BILIRUBIN NEGATIVE (NEGATIVE); URINE BLOOD SMALL (NEGATIVE); URINE CLARITY CLOUDY (Clear); URINE COLOR YELLOW (YELLOW); URINE GLUCOSE (UA) NEG (Normal); URINE LEUKOCYTE ESTERASE LARGE Leu/uL (Negative); URINE PROTEIN 30 mg/dL (NEGATIVE); URINE UROBILINOGEN 0.2-1.0 mg/dL (0.2-1.0); WBC CLUMPS FEW /hpf
[2018-03-17] MEDS ORDERED: cefTRIAXone (Rocephin) 1 gm Inj ONE (20:09)
[2018-03-17 20:40] VITALS: BP 129/79; PULSE 81; RESP 17
== END 2018-03-17 20:40 | disposition home or self-care (01) ==
LOC: H.ER 15:26
DX: N39.0 Urinary tract infection, site not specified (principal); Z87.442 Personal history of urinary calculi; Z86.59 Personal history of other mental and behavioral disorders; E78.00 Pure hypercholesterolemia, unspecified; I12.9 Hypertensive chronic kidney disease with stage 1 through stage 4 chronic kidney disease, or unspecified chronic kidney disease; J44.9 Chronic obstructive pulmonary disease, unspecified; N18.9 Chronic kidney disease, unspecified
CPT/HCPCS: 74176; 80053; 81003; 85025; 87040; 87086; 87181; 96374; 99284; J0696

== ENCOUNTER 2018-07-07 16:37 | Observation (INO) | payer MEDICARE, MEDICAID ==
[2018-07-07 16:38] VITALS: BMI 27.4
--- NOTE | 2018-07-07 19:06 | ED PDOC ---
HPI: Trauma/Fall - HPI Time Seen by Provider: 07/07/18 18:28 Chief Complaint (Nursing): Trauma Chief Complaint (Provider): fall with syncope History Per: Patient History/Exam Limitations: no limitations Additional Complaint(s): 77 y/o F with HTN, HL, arthritis who comes in c/o body wide pain after falls 3 days in a row last week. Pt states that approximately 6 days ago she was sitting down when she suddenly felt lightheaded and fell onto her left side, stating that she had generalized body weakness. Denies LOC or head trauma. The following day, she was walking around her house when she suddenly had + LOC w/o warning. Denies palpitations, head trauma, neck pain, dizziness, C/P or SOB prior to fall. She recovered and then had another episode of dizziness when she went to stand up upon waking. She had + LOC with head trauma on air conditioner. Denies neck pain, GUAJARDO, dizziness, N/V after fall. Further denies hx of arrhythmia, palpitations. Past Medical History Reviewed: Historical Data, Nursing Documentation, Vital Signs Vital Signs: Last Vital Signs Temp 98.6 F 07/07/18 18:12 Pulse 86 07/07/18 18:12 Resp 18 07/07/18 18:12 BP 116/77 07/07/18 18:12 Pulse Ox 96 07/07/18 18:12 - Medical History PMH: Anxiety, Arthritis, Bipolar Disorder, COPD, Depression, Gastritis, HTN, Hypercholesterolemia, Kidney Stones, Chronic Kidney Disease Denies: Diabetes, Hepatitis, HIV, Seizures, Sexually Transmitted Disease - Surgical History Surgical History: Tonsillectomy Denies: Pacemaker - Family History Family History: States: Unknown Family Hx - Immunization History Hx Influenza Vaccination: Yes Hx Pneumococcal Vaccination: No - Home Medications Home Medications: Ambulatory Orders Medication Instructions Recorded RX: Alprazolam [Xanax] 0.5 mg PO TID PRN 03/11/17 RX: Amlodipine Besylate/Benazepril 1 tab PO DAILY 03/11/17 [Amlodipine-Benazepril 10-20 mg] RX: Carvedilol [Coreg] 25 mg PO DAILY 03/11/17 RX: Levomilnacipran HCl [Fetzima] 120 mg PO DAILY 03/11/17 RX: Linaclotide [Linzess] 145 mcg PO DAILY 03/11/17 RX: Meclizine [Meclizine*] 25 mg PO BID PRN 03/11/17 RX: Pantoprazole [Protonix EC Tab] 40 mg PO DAILY 03/11/17 RX: Ranitidine HCl [Zantac] 150 mg PO DAILY 03/11/17 RX: Rosuvastatin Calcium [Crestor] 10 mg PO DAILY 03/11/17 RX: Zolpidem [Ambien] 10 mg PO HS 03/11/17 RX: hydrALAZINE [Apresoline] 10 mg PO DAILY 03/11/17 RX: traZODone [Desyrel] 100 mg PO HS 03/11/17 Lidocaine 5% [Lidoderm] 1 each TP DAILY #30 patch 05/27/17 traMADol [Ultram] 50 mg PO TID PRN #15 tab 05/27/17 Celecoxib [Celebrex] 100 mg PO BID #14 capsule 01/19/18 RX: traMADol [Ultram] 50 mg PO Q8 #10 tab 01/19/18 Sulfamethoxazole/Trimethoprim 1 tab PO BID #14 tab 03/17/18 [Bactrim DS 800 mg-160 mg] - Allergies Allergies/Adverse Reactions: Allergies Allergy/AdvReac Type Severity Reaction Status Date / Time No Known Allergies Allergy Verified 07/07/18 18:11 Physical Exam - Reviewed Nursing Documentation Reviewed: Yes Vital Signs Reviewed: Yes - Physical Exam Appears: Positive for: Uncomfortable Head Exam: Positive for: ATRAUMATIC Skin: Positive for: Normal Color ENT: Positive for: Normal ENT Inspection Neck: Positive for: Normal, Painless ROM Cardiovascular/Chest: Positive for: Regular Rate, Rhythm Respiratory: Positive for: Normal Breath Sounds Gastrointestinal/Abdominal: Positive for: Normal Exam Back: Positive for: Normal Inspection Extremity: Positive for: Normal ROM (flexion and extension of hip and knee B/L), Other (Left hip with large hematoma with healing ecchymosis and abrasion at center). Negative for: Pedal Edema Neurologic/Psych: Positive for: Alert, tub mender II-XII (intact), Oriented, Cerebellar Tests (no pronator drift). Negative for: Aphasia, Facial Droop - Laboratory Results Result Diagrams: 07/07/18 19:45 07/07/18 19:45 - ECG O2 Sat by Pulse Oximetry: 96 Medical Decision Making Medical Decision Making: CBC, CMP, PTT/PT/INR Trop Tele EKG Head CT w/o contrast Left hip/pelvis x-ray Toradol 15mg IV x 1 Orthostatics EKG: sinus, HR 100, PACs, non-specific T wave abnormality in inferior leads. Left hip x-ray: No acute fracture dislocation pelvic ring or left hip joint. Degenerative changes seen the bilateral sacroiliac and hip joints. Pubic symphysis is intact including pubic bony anatomy. No destructive bony lesions identified. Upper sacrum is unremarkable the mid and lower sacrum obscured by overlying bowel. IMPRESSION: No fracture or dislocation left hip joint with pelvic ring intact. Degenerative changes bilateral sacroiliac and hip joints. Patient endorsed to YOON Ricci pending labs, CT scan results. Disposition - Clinical Impression Clinical Impression: Syncope - Patient ED Disposition Is Patient to be Admitted: Transfer of Care (YOON Ricci) - Disposition Disposition: Transfer of Care Disposition Time: 20:00 Condition: FAIR Forms: Vide[employer] (Welsh)
--- NOTE | 2018-07-07 19:41 | RAD ---
Date of service: 07/07/2018 PROCEDURE: LEFT HIP WITH PELVIS RADIOGRAPHS HISTORY: fall with leg pain COMPARISON: Abdomen pelvis CT without contrast 03/17/2018. TECHNIQUE: Frontal views of the pelvis and left hip joint of been submitted with frog-leg lateral view left hip. FINDINGS: No acute fracture dislocation pelvic ring or left hip joint. Degenerative changes seen the bilateral sacroiliac and hip joints. Pubic symphysis is intact including pubic bony anatomy. No destructive bony lesions identified. Upper sacrum is unremarkable the mid and lower sacrum obscured by overlying bowel. IMPRESSION: No fracture or dislocation left hip joint with pelvic ring intact. Degenerative changes bilateral sacroiliac and hip joints.
[2018-07-07 19:49] LABS: BASO # 0.1 K/uL (0.0-0.2); BASO % 0.8 % (0.0-2.0); EOS # 0.2 K/uL (0.0-0.7); EOS % 1.7 % (0.0-4.0); HEMOGLOBIN 13.2 g/dL (12.0-16.0); LYMPH # 2.6 K/uL (1.0-4.3); LYMPH % 26.1 % (20.0-40.0); MEAN CELL VOLUME 91.3 fl (81.0-99.0); MEAN CORPUSCULAR HEMOGLOBIN 30.3 pg (27.0-31.0); MEAN CORPUSCULAR HGB CONC 33.2 g/dL (33.0-37.0); MEAN PLATELET VOLUME 7.2 fl (7.2-11.7); MONO # 1.1 K/uL (0.0-0.8); NEUT % 60.4 % (50.0-75.0); NRBC % 0.1 % (0.0-0.0); RBC 4.37 Mil/uL (3.80-5.20); RED CELL DISTRIBUTION WIDTH 13.1 % (11.5-14.5); WHITE BLOOD COUNT 9.9 K/uL (4.8-10.8)
[2018-07-07 19:59] LABS: SQUAMOUS EPITHIAL < 1 /hpf (0-5); URINE BACTERIA RARE (<OCC); URINE BILIRUBIN NEGATIVE (NEGATIVE); URINE CLARITY SLIGHTY-CLOUDY (Clear); URINE COLOR STRAW (YELLOW); URINE GLUCOSE (UA) NEG (NEGATIVE); URINE LEUKOCYTE ESTERASE SMALL Leu/uL (Negative); URINE PROTEIN NEGATIVE (NEGATIVE); URINE UROBILINOGEN 0.2-1.0 mg/dL (0.2-1.0)
[2018-07-07 20:03] LABS: PROTHROMBIN TIME 11.4 Seconds (9.8-13.1)
[2018-07-07 20:06] LABS: PARTIAL THROMBOPLASTIN TIME 29.4 Seconds (25.6-37.1)
[2018-07-07 20:08] LABS: ALB/GLOB RATIO 1.3 (1.0-2.1); ALBUMIN 4.1 g/dL (3.5-5.0); ALT/SGPT 24 U/L (9-52); AST/SGOT 22 U/L (14-36); BLOOD UREA NITROGEN 13 mg/dl (7-17); CALCIUM 10.2 mg/dL (8.4-10.2); GFR NON-AFRICAN AMERICAN > 60
--- NOTE | 2018-07-07 20:11 | ED PDOC ---
- Laboratory Results Result Diagrams: 07/07/18 19:45 07/07/18 19:45 Lab Results: PT 11.4 Seconds (9.8-13.1) 07/07/18 19:45 INR 1.0 07/07/18 19:45 APTT 29.4 Seconds (25.6-37.1) 07/07/18 19:45 Total Bilirubin 0.4 mg/dl (0.2-1.3) 07/07/18 19:45 AST 22 U/L (14-36) 07/07/18 19:45 ALT 24 U/L (9-52) 07/07/18 19:45 Alkaline Phosphatase 80 U/L (38-126) 07/07/18 19:45 Total Protein 7.2 G/DL (6.3-8.2) 07/07/18 19:45 Albumin 4.1 g/dL (3.5-5.0) 07/07/18 19:45 Globulin 3.2 gm/dL (2.2-3.9) 07/07/18 19:45 Albumin/Globulin Ratio 1.3 (1.0-2.1) 07/07/18 19:45 - ECG O2 Sat by Pulse Oximetry: 96 - Radiology X-Ray: Viewed By Ok X-Ray Interpretation: No Acute Disease - Progress ED Course And Treament: Case endorsed to technical document writer from Britni THAPA pending labs, imaging EXAM: CT Head without Intravenous Contrast. CLINICAL HISTORY: Head trauma with loc TECHNIQUE: Axial computed tomography images of the head/brain without intravenous contrast. 820.60 mGy-cm COMPARISON: None provided. FINDINGS: BRAIN There is age-appropriate moderate diffuse cerebral/cerebellar atrophy noted. No acute intraparenchymal hemorrhage. No mass lesion. No CT evidence for acute territorial infarct. No midline shift or extra-axial collections. There are b ilateral periventricular and subcortical white matter hypolucencies compatible with mild chronic microvascular disease. VENTRICLES: Compensatory ventricular dilatation is noted for the cortical atrophy. Incidental discovery is made of caval septum pellucidum; a normal variant finding. VASCULAR: Atherosclerotic vascular plaquing is present within the carotid siphons bilaterally. ORBITS: The orbits are unremarkable. SINUSES AND MASTOIDS: A mucous retention cyst or polyp is seen in the posterior sphenoid sinus. The remaining paranasal sinuses and mastoid air cells are clear. BONES: No fracture. SOFT TISSUES: Unremarkable. IMPRESSION: 1. No acute intracranial abnormality. 2. Moderate age-appropriate cerebral/cerebellar atrophy. 3. Compensatory ventricular dilatation is noted. Caval septum pellucidum; a normal variant finding. 4. Mild chronic microvascular disease. 5. Atherosclerotic vascular plaquing within the carotid siphons bilaterally. 6. Incidental note is made of a mucous retention cyst or polyp in the posterior sphenoid sinus Case discussed with Dr. Becerra, Hospitalist on-call, for placement in observation telemetry for further evaluation of syncopal episodes Disposition - Clinical Impression Clinical Impression: Syncope - POA Present On Arrival: Falls Or Trauma - Disposition Disposition: Hospitalized as Observation Patient Disposition Time: 20:56 Condition: STABLE
[2018-07-07 20:12] LABS: URINE BLOOD MODERATE (NEGATIVE)
[2018-07-07] MEDS ORDERED: Sodium Chloride 0.9% 1,000 ML IV STA (20:26)
--- NOTE | 2018-07-07 22:46 | CP.PCM.HP ---
History of Present Illness - History of Present Illness History of Present Illness: 77 yo F with hx significant for HTN, arthritis, gastritis, IBS, psychiatric issues, admitted due to recurrent falls/possible syncope. Pt was seen in ED, poor historian and gives somewhat conflicting stories to different providers, possible underlying dementia. She reported that last week on , Sat and , she felt dizzy and fell each day due to dizziness. Denies feeling like room is spinning; states she feels like she is losing balance. Normally walks with a cane and denies issues such as these prior to last week. She visited her PCP on Saturday to show a bruise she sustained in the first fall, but states nothing specific was done. She denies hitting her head on anything or LOC during these episodes. She states her son helps her up after the falls and she has been able to walk with his assistance today. Denies being on any blood thinners. Denies history of cardiac problems or any CVA. Denies headaches, chest pain, difficulty breathing, palpitations, abdominal pain, n/v/c/d, leg pain/swelling. PMD:Dr. Ramos Past Med hx: hypertension, hyperlipidemia, Past Surg Hx: lithotripsy, tonsil surgery, toe surgery Social hx: no tobacco, alcohol or drugs; lives with son who takes care of her, walks with cane at baseline Fam hx: noncontributory Allergies: NKDA Meds: med rec: xanax, amlodipine, lipitor, coreg, pepcid, hydralazine, linzess, linaclotide, lisinopril, meclezine, protonix, restoril, trazodone and patient states she takes restoril 15 mg nightly In ED: Vitals: BP 116/77, HR 86, T 98.6, O2 sat 96, RR 18 CBC: unremarkable, no anemia, no leukocytosis, normal PLT count Coags INR 1.0 CMP: relatively unremarkable Troponin neg x1 UA: small LE, mod blood Head CT: Impression: 1. No acute intracranial abnormality. 2. Moderate age-appropriate cerebral/cerebellar atrophy. 3. Compensatory ventricular dilatation is noted. Caval septum pellucidum; a normal variant finding. 4. Mild chronic microvascular disease. 5. Atherosclerotic vascular plaquing within the carotid siphons bilaterally. 6. Incidental note is made of a mucous retention cyst or polyp in the posterior sphenoid sinus L Hip Xray: No fracture or dislocation left hip joint with pelvic ring intact. Degenerative changes bilateral sacroiliac and hip joints. Present on Admission - Present on Admission Any Indicators Present on Admission: No Review of Systems - Constitutional Constitutional: Frequent Falls. absent: Headache - EENT Eyes: absent: Blurred Vision - Cardiovascular Cardiovascular: absent: Chest Pain - Respiratory Respiratory: absent: Dyspnea - Gastrointestinal Gastrointestinal: absent: Abdominal Pain - Neurological Neurological: Disequilibrium, Dizziness, Frequent Falls Past Patient History - Infectious Disease Hx of Infectious Diseases: None - Tetanus Immunizations Tetanus Immunization: Unknown - Past Medical History & Family History Past Medical History?: Yes - Past Social History Smoking Status: Never Smoked - CARDIAC Hx Hypercholesterolemia: Yes Hx Hypertension: Yes Hx Pacemaker: No - PULMONARY Hx Chronic Obstructive Pulmonary Disease (COPD): Yes - NEUROLOGICAL Hx Seizures: No - HEENT Hx HEENT Problems: No - RENAL Hx Chronic Kidney Disease: Yes - ENDOCRINE/METABOLIC Hx Endocrine Disorders: No - HEMATOLOGICAL/ONCOLOGICAL Hx Human Immunodeficiency Virus (HIV): No - INTEGUMENTARY Hx Dermatological Problems: No - MUSCULOSKELETAL/RHEUMATOLOGICAL Hx Musculoskeletal Disorders: Yes - GASTROINTESTINAL Hx Gastritis: Yes - GENITOURINARY/GYNECOLOGICAL Hx Sexually Transmitted Disorders: No - PSYCHIATRIC Hx Anxiety: Yes Hx Bipolar Disorder: Yes Hx Depression: Yes - SURGICAL HISTORY Hx Tonsillectomy: Yes - ANESTHESIA Hx Anesthesia: Yes Hx Anesthesia Reactions: No Hx Malignant Hyperthermia: No Meds Allergies/Adverse Reactions: Allergies Allergy/AdvReac Type Severity Reaction Status Date / Time No Known Allergies Allergy Verified 07/07/18 18:11 Physical Exam - Constitutional Appears: No Acute Distress - Head Exam Head Exam: NORMAL INSPECTION - Eye Exam Eye Exam: EOMI, PERRL - ENT Exam ENT Exam: Mucous Membranes Moist - Neck Exam Neck exam: Positive for: Full Rom - Respiratory Exam Respiratory Exam: Clear to Auscultation Bilateral, NORMAL BREATHING PATTERN. absent: Respiratory Distress - Cardiovascular Exam Cardiovascular Exam: REGULAR RHYTHM, +S1, +S2 - GI/Abdominal Exam GI & Abdominal Exam: Normal Bowel Sounds, Soft. absent: Tenderness - Extremities Exam Extremities exam: Negative for: calf tenderness, pedal edema Additional comments: large ~10 cm x 10 cm hematoma on L hip - Neurological Exam Neurological exam: Alert - Psychiatric Exam Psychiatric exam: Normal Affect - Skin Skin Exam: Dry Additional comments: large bruise Left hip, about 10cm x 10 cm Results - Vital Signs Recent Vital Signs: Last Vital Signs Temp 98.9 F 07/07/18 21:59 Pulse 104 H 07/07/18 21:59 Resp 16 07/07/18 21:59 BP 120/70 07/07/18 21:59 Pulse Ox 97 07/07/18 21:59 - Labs Result Diagrams: 07/07/18 19:45 07/07/18 19:45 Labs: Laboratory Results - last 24 hr 07/07/18 07/07/18 07/07/18 19:45 19:45 19:45 WBC 9.9 RBC 4.37 Hgb 13.2 Hct 39.9 MCV 91.3 MCH 30.3 MCHC 33.2 RDW 13.1 Plt Count 263 MPV 7.2 Neut % (Auto) 60.4 Lymph % (Auto) 26.1 Mckean % (Auto) 11.0 H Eos % (Auto) 1.7 Baso % (Auto) 0.8 Neut # (Auto) 6.0 Lymph # (Auto) 2.6 Mckean # (Auto) 1.1 H Eos # (Auto) 0.2 Baso # (Auto) 0.1 PT INR APTT Sodium 138 Potassium 3.7 Chloride 97 L Carbon Dioxide 27 Anion Gap 18 BUN 13 Creatinine 0.7 Est GFR ( Amer) > 60 Est GFR (Non-Af Amer) > 60 Random Glucose 127 H Calcium 10.2 Total Bilirubin 0.4 AST 22 ALT 24 Alkaline Phosphatase 80 Troponin I < 0.0120 Total Protein 7.2 Albumin 4.1 Globulin 3.2 Albumin/Globulin Ratio 1.3 Urine Color Straw Urine Clarity Slighty-cloudy Urine pH 7.0 Ur Specific [place] < 1.005 Urine Protein Negative Urine Glucose (UA) Neg Urine Ketones Negative Urine Blood Moderate Urine Nitrate Negative Urine Bilirubin Negative Urine Urobilinogen 0.2-1.0 Ur Leukocyte Esterase Small Urine RBC (Auto) 9 H Urine Microscopic WBC 7 H Ur Squamous Epith Cells < 1 Urine Bacteria Rare 07/07/18 19:45 WBC RBC Hgb Hct MCV MCH MCHC RDW Plt Count MPV Neut % (Auto) Lymph % (Auto) [place]ke[place] % (Auto) Eos % (Auto) Baso % (Auto) Neut # (Auto) Lymph # (Auto) Mckean # (Auto) Eos # (Auto) Baso # (Auto) PT 11.4 INR 1.0 APTT 29.4 Sodium Potassium Chloride Carbon Dioxide Anion Gap BUN Creatinine Est GFR ( Amer) Est GFR (Non-Af Amer) Random Glucose Calcium Total Bilirubin AST ALT Alkaline Phosphatase Troponin I Total Protein Albumin Globulin Albumin/Globulin Ratio Urine Color Urine Clarity Urine pH Ur Specific [place] Urine Protein Urine Glucose (UA) Urine Ketones Urine Blood Urine Nitrate Urine Bilirubin Urine Urobilinogen Ur Leukocyte Esterase Urine RBC (Auto) Urine Microscopic WBC Ur Squamous Epith Cells Urine Bacteria Assessment & Plan - Assessment and Plan (Free Text) Assessment: 77 yo F with hx significant for HTN, arthritis, gastritis, IBS, psychiatric issues, admitted due to recurrent falls/possible syncope. Plan: Frequent falls/Dizziness - Admit to tele, tele monitoring - Troponin 1 neg; 2 serial trop q8 - Carotid doppler u/s ordered - Echo ordered - Neuro consult - Dr. Hernández; consider MRI but will defer to neuro input - Cardiology - Dr. Mancera - Meclizine - home med - Vit B12, folate, TSH, BMP, CBC in am - PT/OT Hypertension - Has multiple meds on home med rec- lisinopril, amlodipine, hydralazine, coreg- plan to verify w/ pharmacy in am - Resume lisinopril, coreg; hold others and monitor BP Hyperlipidemia - Home med lipitor Gastritis - Home med protonix IBS - Home med linzess - ask pt's fam to bring Psychiatric history, depression, anxiety - Home meds - patient states she takes restoril; med rec includes xanax and trazodone- plan to verify w/ pharmacy in am - Home med levomilnacipran - ask pt's fam to bring Diet - Heart Healthy Diet DVT prophylaxis - SCDs for now Pt seen/discussed w/ Dr. Becerra.
[2018-07-08 00:44] VITALS: RESP 18
[2018-07-08 05:33] LABS: HEMOGLOBIN 12.1 g/dL (12.0-16.0); MEAN CELL VOLUME 91.4 fl (81.0-99.0); MEAN CORPUSCULAR HEMOGLOBIN 30.5 pg (27.0-31.0); MEAN CORPUSCULAR HGB CONC 33.3 g/dL (33.0-37.0); RBC 3.98 Mil/uL (3.80-5.20); RED CELL DISTRIBUTION WIDTH 13.4 % (11.5-14.5); WHITE BLOOD COUNT 7.4 K/uL (4.8-10.8)
[2018-07-08 06:06] LABS: BLOOD UREA NITROGEN 10 mg/dl (7-17); CALCIUM 9.5 mg/dL (8.4-10.2); GFR NON-AFRICAN AMERICAN > 60
[2018-07-08] MEDS ORDERED: Potassium Chloride 20 mEq ER Tab PO ONE (07:00)
--- NOTE | 2018-07-08 07:58 | CP.PCM.CON ---
History of Present Illness - History of Present Illness History of Present Illness: 77 yo F with hx significant for HTN, arthritis, gastritis, IBS, psychiatric issues, admitted due to recurrent falls Denies headaches, chest pain, difficulty breathing, palpitations, abdominal pain, n/v/c/d, leg pain/swelling. Pt claims the falls are the result of losing her footing denies dizziness prior to the incidents no LOC, no chest pain, no palpitations EKG: normal Troponin: neg Past Med hx: hypertension, hyperlipidemia, lithotripsy, Meds: med rec: xanax, amlodipine, lipitor, coreg, pepcid, hydralazine, linzess, linaclotide, lisinopril, meclezine, protonix, restoril, trazodone Past Patient History - Infectious Disease Hx of Infectious Diseases: None - Tetanus Immunizations Tetanus Immunization: Unknown - Past Medical History & Family History Past Medical History?: Yes - Past Social History Smoking Status: Never Smoked - CARDIAC Hx Hypercholesterolemia: Yes Hx Hypertension: Yes Hx Pacemaker: No - PULMONARY Hx Chronic Obstructive Pulmonary Disease (COPD): Yes - NEUROLOGICAL Hx Seizures: No - HEENT Hx HEENT Problems: No - RENAL Hx Chronic Kidney Disease: Yes - ENDOCRINE/METABOLIC Hx Endocrine Disorders: No - HEMATOLOGICAL/ONCOLOGICAL Hx Human Immunodeficiency Virus (HIV): No - INTEGUMENTARY Hx Dermatological Problems: No - MUSCULOSKELETAL/RHEUMATOLOGICAL Hx Musculoskeletal Disorders: Yes - GASTROINTESTINAL Hx Gastritis: Yes - GENITOURINARY/GYNECOLOGICAL Hx Sexually Transmitted Disorders: No - PSYCHIATRIC Hx Anxiety: Yes Hx Bipolar Disorder: Yes Hx Depression: Yes - SURGICAL HISTORY Hx Tonsillectomy: Yes - ANESTHESIA Hx Anesthesia: Yes Hx Anesthesia Reactions: No Hx Malignant Hyperthermia: No Meds Allergies/Adverse Reactions: Allergies Allergy/AdvReac Type Severity Reaction Status Date / Time No Known Allergies Allergy Verified 07/07/18 18:11 - Medications Medications: Current Medications Alprazolam (Xanax) 0.5 mg PO TID PRN PRN Reason: Anxiety Amlodipine Besylate (Norvasc) 10 mg PO DAILY [facility] Atorvastatin Calcium (Lipitor) 20 mg PO DAILY [facility] Carvedilol (Coreg) 25 mg PO DAILY [facility] Cyanocobalamin (Vitamin B12 1000 Mcg/Ml Inj) 1,000 mcg IM DAILY [facility] Famotidine (Pepcid) 20 mg PO DAILY [facility] Home Med (Levomilnacipran Hcl [Fetzima]) 120 mg PO DAILY [facility] Home Med (Linaclotide [Linzess]) 145 mcg PO DAILY [facility] Hydralazine HCl (Apresoline) 10 mg PO DAILY [facility] Lisinopril (Zestril) 20 mg PO DAILY [facility] Meclizine HCl (Antivert) 25 mg PO BID PRN PRN Reason: Dizziness Pantoprazole Sodium (Protonix Ec Tab) 40 mg PO DAILY [facility] Temazepam (Restoril) 15 mg PO HS [facility] Last Admin: 07/08/18 00:12 Dose: 15 mg Trazodone HCl (Desyrel) 100 mg PO HS [facility] Physical Exam - Respiratory Exam Respiratory Exam: NORMAL BREATHING PATTERN - Cardiovascular Exam Cardiovascular Exam: REGULAR RHYTHM Results - Vital Signs Recent Vital Signs: Last Vital Signs Temp 98.3 F 07/08/18 04:55 Pulse 76 07/08/18 04:55 Resp 18 07/08/18 04:55 BP 122/77 07/08/18 04:55 Pulse Ox 95 07/08/18 04:55 - Labs Result Diagrams: 07/08/18 04:25 07/08/18 04:25 Labs: Laboratory Results - last 24 hr 07/07/18 07/07/18 07/07/18 19:45 19:45 19:45 WBC 9.9 RBC 4.37 Hgb 13.2 Hct 39.9 MCV 91.3 MCH 30.3 MCHC 33.2 RDW 13.1 Plt Count 263 MPV 7.2 Neut % (Auto) 60.4 Lymph % (Auto) 26.1 Moore % (Auto) 11.0 H Eos % (Auto) 1.7 Baso % (Auto) 0.8 Neut # (Auto) 6.0 Lymph # (Auto) 2.6 Moore # (Auto) 1.1 H Eos # (Auto) 0.2 Baso # (Auto) 0.1 PT INR APTT Sodium 138 Potassium 3.7 Chloride 97 L Carbon Dioxide 27 Anion Gap 18 BUN 13 Creatinine 0.7 Est GFR ( Amer) > 60 Est GFR (Non-Af Amer) > 60 Random Glucose 127 H Calcium 10.2 Total Bilirubin 0.4 AST 22 ALT 24 Alkaline Phosphatase 80 Troponin I < 0.0120 Total Protein 7.2 Albumin 4.1 Globulin 3.2 Albumin/Globulin Ratio 1.3 Vitamin B12 TSH 3rd Generation Urine Color Straw Urine Clarity Slighty-cloudy Urine pH 7.0 Ur Specific [place] < 1.005 Urine Protein Negative Urine Glucose (UA) Neg Urine Ketones Negative Urine Blood Moderate Urine Nitrate Negative Urine Bilirubin Negative Urine Urobilinogen 0.2-1.0 Ur Leukocyte Esterase Small Urine RBC (Auto) 9 H Urine Microscopic WBC 7 H Ur Squamous Epith Cells < 1 Urine Bacteria Rare 07/07/18 07/08/18 07/08/18 19:45 04:25 04:25 WBC 7.4 RBC 3.98 Hgb 12.1 Hct 36.4 MCV 91.4 MCH 30.5 MCHC 33.3 RDW 13.4 Plt Count 231 MPV Neut % (Auto) Lymph % (Auto) Moore % (Auto) Eos % (Auto) Baso % (Auto) Neut # (Auto) Lymph # (Auto) Moore # (Auto) Eos # (Auto) Baso # (Auto) PT 11.4 INR 1.0 APTT 29.4 Sodium 142 Potassium 3.4 L Chloride 102 Carbon Dioxide 27 Anion Gap 16 BUN 10 Creatinine 0.6 L Est GFR ( Amer) > 60 Est GFR (Non-Af Amer) > 60 Random Glucose 104 Calcium 9.5 Total Bilirubin AST ALT Alkaline Phosphatase Troponin I < 0.0120 Total Protein Albumin Globulin Albumin/Globulin Ratio Vitamin B12 214 L TSH 3rd Generation 1.12 Urine Color Urine Clarity Urine pH Ur Specific [place] Urine Protein Urine Glucose (UA) Urine Ketones Urine Blood Urine Nitrate Urine Bilirubin Urine Urobilinogen Ur Leukocyte Esterase Urine RBC (Auto) Urine Microscopic WBC Ur Squamous Epith Cells Urine Bacteria Assessment & Plan - Assessment and Plan (Free Text) Assessment: Falls do not appear to be cardiac in origin - Date & Time Date: 07/08/18 Time: 10:00
[2018-07-08] MEDS: Pantoprazole 40 mg EC Tab PO SCH (08:23)
[2018-07-08] MEDS ORDERED: LEVOMILNACIPRAN HCL 120 MG PO SCH (09:00)
--- NOTE | 2018-07-08 10:27 | CP.PCM.PN ---
<PanamaSultan - Last Filed: 07/08/18 11:01> Subjective - Date & Time of Evaluation Date of Evaluation: 07/08/18 Time of Evaluation: 10:10 - Subjective Subjective: Patient seen and examined at bedside this morning. No acute overnight events. Afebrile with stable BP Still has dizziness, worse with standing. States she has intermittent dizziness x 5 years, worsened last few days. Denies urinary incontinence. Denies any chest pain, dyspnea, cough, headache, or focal weakness. Objective - Vital Signs/Intake and Output Vital Signs (last 24 hours): Temp Pulse Resp BP Pulse Ox 98 F 90 18 130/77 95 07/08/18 08:40 07/08/18 08:40 07/08/18 08:40 07/08/18 08:40 07/08/18 08:40 - Medications Medications: Current Medications Alprazolam (Xanax) 0.5 mg PO TID PRN PRN Reason: Anxiety Amlodipine Besylate (Norvasc) 10 mg PO DAILY ON LICENSE OF [facility] Atorvastatin Calcium (Lipitor) 20 mg PO DAILY ON [facility] OF [facility] Last Admin: 07/08/18 08:22 Dose: 20 mg Carvedilol (Coreg) 25 mg PO DAILY ON [facility] OF [facility] Last Admin: 07/08/18 08:22 Dose: 25 mg Cyanocobalamin (Vitamin B12 1000 Mcg/Ml Inj) 1,000 mcg IM DAILY ON [facility] OF [facility] Famotidine (Pepcid) 20 mg PO DAILY ON [facility] OF [facility] Last Admin: 07/08/18 08:22 Dose: 20 mg Home Med (Levomilnacipran Hcl [Fetzima]) 120 mg PO DAILY ON [facility] OF [facility] Home Med (Linaclotide [Linzess]) 145 mcg PO DAILY ON [facility] Hydralazine HCl (Apresoline) 10 mg PO DAILY ON [facility] Lisinopril (Zestril) 20 mg PO DAILY ON [facility] Last Admin: 07/08/18 08:23 Dose: 20 mg Meclizine HCl (Antivert) 25 mg PO BID PRN PRN Reason: Dizziness Pantoprazole Sodium (Protonix Ec Tab) 40 mg PO DAILY ON [facility] Last Admin: 07/08/18 08:23 Dose: 40 mg Temazepam (Restoril) 15 mg PO HS ON [facility] OF [facility] Last Admin: 07/08/18 00:12 Dose: 15 mg Trazodone HCl (Desyrel) 100 mg PO HS ON LICENSE OF [facility] - Labs Labs: 07/08/18 04:25 07/08/18 04:25 PT 11.4 Seconds (9.8-13.1) 07/07/18 19:45 INR 1.0 07/07/18 19:45 APTT 29.4 Seconds (25.6-37.1) 07/07/18 19:45 - Constitutional Appears: No Acute Distress - Head Exam Head Exam: NORMAL INSPECTION - Eye Exam Eye Exam: Normal appearance - ENT Exam ENT Exam: Mucous Membranes Moist - Neck Exam Neck Exam: Full ROM, Normal Inspection - Respiratory Exam Respiratory Exam: Clear to Ausculation Bilateral, NORMAL BREATHING PATTERN. absent: Wheezes, Respiratory Distress - Cardiovascular Exam Cardiovascular Exam: REGULAR RHYTHM, +S1, +S2 - GI/Abdominal Exam GI & Abdominal Exam: Soft, Normal Bowel Sounds. absent: Tenderness - Extremities Exam Extremities Exam: absent: Calf Tenderness Additional comments: superficial vein on lower extremities - Neurological Exam Neurological Exam: Alert, Awake, Oriented x3 - Psychiatric Exam Psychiatric exam: Normal Affect, Normal Mood - Skin Additional comments: Large ~10 cm x 10 cm hematoma on L hip. No induration or fluctuance. Assessment and Plan - Assessment and Plan (Free Text) Assessment: 77 yo F with hx significant for HTN, arthritis, gastritis, IBS, psychiatric issues, admitted due to recurrent falls/possible syncope. Plan: Frequent falls/Dizziness - Admit to tele, tele monitoring - Troponin x 2 neg - Neuro consult -Dr. Hernández; consider MRI but will defer to neuro input; F/U recommendation - Cardiology - Dr. Mancera -recs appreciated - PT/OT - f/u Carotid doppler u/s and ECHO Hypertension - Has multiple meds on home med rec- Cogreg 25 mg po bid, Lotrel 10/20 mg daily (verified w/ pharmacy this morning) - Resume lisinopril and coreg - Hold amolodipone - Monitor BP Vitamin B12 Deficiency -B12 level: 214 -Vitamin B12 IM daily Hyperlipidemia - Home med lipitor Gastritis - c/w home meds Psychiatric history, depression, anxiety - Home meds - Latuda 40 mg BID, Cymbalta 60 mg bid, doxepine 60 mg, Temazepam 15 mg, alprazolam 1 mg po bid (verified with pharmacy this morning) Diet - Heart Healthy Diet DVT prophylaxis - SCDs for now Plan discussed with Dr. Levi <Stephanie Levi - Last Filed: 07/08/18 17:16> Objective - Vital Signs/Intake and Output Vital Signs (last 24 hours): Temp Pulse Resp BP Pulse Ox 98.2 F 77 18 148/82 97 07/08/18 16:16 07/08/18 16:16 07/08/18 16:16 07/08/18 16:16 07/08/18 16:16 - Medications Medications: Current Medications Alprazolam (Xanax) 0.5 mg PO Q8 PRN PRN Reason: Anxiety Amlodipine Besylate (Norvasc) 10 mg PO DAILY ON [facility] OF [facility] Atorvastatin Calcium (Lipitor) 20 mg PO DAILY ON [facility] Last Admin: 07/08/18 08:22 Dose: 20 mg Carvedilol (Coreg) 25 mg PO DAILY ON [facility] Last Admin: 07/08/18 08:22 Dose: 25 mg Cyanocobalamin (Vitamin B12 1000 Mcg/Ml Inj) 1,000 mcg IM DAILY ON [facility] Last Admin: 07/08/18 13:03 Dose: 1,000 mcg Duloxetine HCl (Cymbalta) 60 mg PO BID ON [facility] OF [facility] Famotidine (Pepcid) 20 mg PO DAILY ON [facility] Last Admin: 07/08/18 08:22 Dose: 20 mg Home Med (Levomilnacipran Hcl [Fetzima]) 120 mg PO DAILY ON [facility] Home Med (Linaclotide [Linzess]) 145 mcg PO DAILY ON [facility] Lisinopril (Zestril) 20 mg PO DAILY ON [facility] Last Admin: 07/08/18 08:23 Dose: 20 mg Pantoprazole Sodium (Protonix Ec Tab) 40 mg PO DAILY ON [facility] Last Admin: 07/08/18 08:23 Dose: 40 mg Temazepam (Restoril) 15 mg PO HS ON [facility] Last Admin: 07/08/18 00:12 Dose: 15 mg Trazodone HCl (Desyrel) 100 mg PO HS ON [facility] - Labs Labs: 07/08/18 04:25 07/08/18 04:25 PT 11.4 Seconds (9.8-13.1) 07/07/18 19:45 INR 1.0 07/07/18 19:45 APTT 29.4 Seconds (25.6-37.1) 07/07/18 19:45 Attending/Attestation - Attestation I have personally seen and examined this patient.: Yes I have fully participated in the care of the patient.: Yes I have reviewed all pertinent clinical information, including history, physical exam and plan: Yes Notes (Text): Fall, question of Syncope B12 Deficiency Depression/Anxiety HTN - Trop x 3 neg, TSH normal - B12 low- start B12 shots - CT of head ? dilated ventricles - Neuro consulted- Dr Hernández rec EEG and CTA - Cardio consulted - noncardiac etio for fall accdg to Dr Mancera - ECHO : normal EF - Carotid Sono; neg -decrease dose of Xanax to 0.5 from 1mg tid - cont Cymbalta, cont Trazodone , hold off on Temazepam - monitor Orthostatic VS
--- NOTE | 2018-07-08 11:54 | CARD ---
APPROVED REPORT Date of service: 07/07/2018 EKG Measurement Heart [id number] <Conclusion> Normal sinus rhythm Poor R wave progression in Precordial leads Inferior infarct, age undetermined Abnormal ECG
--- NOTE | 2018-07-08 12:02 | CARD ---
APPROVED REPORT Date of service: 07/08/2018 EXAM: Two-dimensional and M-mode echocardiogram with Doppler and color Doppler. Other Information Quality : AverageRhythm : NSR INDICATION Syncope 2D DIMENSIONS IVSd1.24 (0.7-1.1cm)LVDd3.35 (3.9-5.9cm) LVOT Diameter2.37 (1.8-2.4cm)PWd0.94 (0.7-1.1cm) IVSs1.29 (0.8-1.2cm)LVDs2.86 (2.5-4.0cm) FS (%) 14.4 %PWs1.12 (0.8-1.2cm) M-Mode DIMENSIONS Left Atrium (MM)3.38 (2.5-4.0cm)Aortic Root3.41 (2.2-3.7cm) Aortic Cusp Exc.1.81 (1.5-2.0cm) Aortic Valve AoV Peak Zutikayj862.5cm/sAoV VTI29.0cmAO Peak GR.10mmHg LVOT Peak Jgwobiao174.2cm/sLVOT VTI25.90cmAO Mean GR.6mmHg ALMA (VMAX)1.26ft5PCF (VTI)2.06cm2 Mitral Valve MV E Dczpxdhc78.4cm/sMV DECEL QJOW722jhCS A Uqxaqsxh31.3cm/s MV WAM89zaF/A ratio0.6MVA (PHT)2.69cm2 TDI Lateral E' Peak V7.99cm/sMedial E' Peak V7.66cm/sE/Lateral E'6.6 E/Medial E'6.8 LEFT VENTRICLE The left ventricle is normal size. There is borderline concentric left ventricular hypertrophy. The left ventricular systolic function is normal. The estimated ejection fraction is 60-65% No regional wall motion abnormalities noted.. Transmitral Doppler flow pattern is Grade I-abnormal relaxation pattern. No left ventricle thrombus noted on this study. There is no ventricular septal defect visualized. There is no left ventricular aneurysm. There is no mass noted in the left ventricle. RIGHT VENTRICLE The right ventricle is normal size. There is normal right ventricular wall thickness. The right ventricular systolic function is normal. ATRIA The left atrium is borderline dilated. The right atrium size is normal. The interatrial septum is intact with no evidence for an atrial septal defect. AORTIC VALVE The aortic valve is normal in structure. No aortic regurgitation is present. There is no aortic valvular stenosis. There is no aortic valvular vegetation. MITRAL VALVE The mitral valve is normal in structure. There is no evidence of mitral valve prolapse. There is no mitral valve stenosis. There is no mitral valve regurgitation noted. TRICUSPID VALVE The tricuspid valve is normal in structure. There is trace tricuspid valve regurgitation noted. There is no tricuspid valve prolapse or vegetation. There is no tricuspid valve stenosis. PULMONIC VALVE The pulmonary valve is normal in structure. There is no pulmonic valvular regurgitation. There is no pulmonic valvular stenosis. GREAT VESSELS The aortic root is normal in size. The ascending aorta is normal in size. The pulmonary artery is normal. The IVC is not visualized. PERICARDIAL EFFUSION There is no pericardial effusion. There is no pleural effusion. <Conclusion> The estimated ejection fraction is 60-65% Transmitral Doppler flow pattern is Grade I-abnormal relaxation pattern. The left atrium is borderline dilated. There is trace tricuspid valve regurgitation noted.
[2018-07-08 13:15] LABS: FOLATE 14.7 ng/mL
--- NOTE | 2018-07-08 13:40 | US ---
Date of service: 07/08/2018 PROCEDURE: Duplex ultrasound of the carotid and vertebral arteries. HISTORY: dizziness, falls COMPARISON: None available. TECHNIQUE: Grayscale and duplex Doppler evaluation of the cervical carotid and vertebral arteries were performed. The common carotid, carotid bifurcations and cervical ICA and proximal ECA were evaluated. The vertebral arteries were evaluated for gross patency and direction. FINDINGS: RIGHT CAROTID ARTERIES: Common Carotid Artery: Maximal flow velocity of 119.4 cm/s. Carotid Bifurcation: Intimal thickening is present Internal Carotid Artery:Heterogeneous plaque formation. Maximal flow velocity of 85.4 cm/s. External Carotid Artery (proximal branches): Maximal flow velocity of 80.6 cm/s. ICA/CCA Ratio: 0.9 LEFT CAROTID ARTERIES: Common Carotid Artery: Maximal flow velocity of 91.4 cm/s. Carotid Bifurcation: Heterogeneous plaque formation. Internal Carotid Artery:Heterogeneous plaque formation. Maximal flow velocity of 68.5 cm/s. External Carotid Artery (proximal branches): Maximal flow velocity of 87.4 cm/s. ICA/CCA Ratio: 0.8 VERTEBRAL ARTERIES: Right Vertebral Artery: Patent. Antegrade flow. Left Vertebral Artery: Patent. Antegrade flow. OTHER FINDINGS: Atherosclerotic calcification present. IMPRESSION: Right ICA degree of stenosis: Less than 50% Left ICA degree of stenosis: Less than 50% Reference Internal Carotid Artery (ICA) Peak Systolic Velocity (PSV) for above: 1. Less than 50% stenosis less than 125 cm/s peak systolic velocity 2. 50-69% stenosis 125-230cm/s peak systolic velocity 3. Greater than 70% but less than near occlusion greater than 230 cm/s peak systolic velocity
--- NOTE | 2018-07-08 14:14 | CT ---
Date of service: 07/07/2018 PROCEDURE: CT HEAD WITHOUT CONTRAST. HISTORY: + head trauma with LOC COMPARISON: Unenhanced head CT 05/20/2017. TECHNIQUE: Axial computed tomography images were obtained through the head/brain without intravenous contrast. Radiation dose: Total exam DLP = 820.6 mGy-cm. This CT exam was performed using one or more of the following dose reduction techniques: Automated exposure control, adjustment of the mA and/or kV according to patient size, and/or use of iterative reconstruction technique. FINDINGS: HEMORRHAGE: No intracranial hemorrhage. BRAIN: Stable expansion of the ventricular sulcal sternal spaces appreciated once again with moderate periventricular and centrum semiovale as well as subcortical white matter lucency compatible with stable diffuse cerebral atrophy and chronic microangiopathy. No cortical edema or mass effect. Midline brain anatomy is unremarkable once again. No suspicious extra-axial fluid collection appreciable. VENTRICLES: Unremarkable. No hydrocephalus. CALVARIUM: No destructive bony lesion or displaced fracture identified including through the skullbase. PARANASAL SINUSES: Limited left sphenoid and right posterior ethmoid sinusitis. MASTOID AIR CELLS: Unremarkable as visualized. No inflammatory changes. OTHER FINDINGS: None. IMPRESSION: Stable age-related degenerative changes are identified without intracranial hemorrhage or fracture appreciable. Follow-up CT or MRI are available if clinically warranted.
--- NOTE | 2018-07-08 15:08 | RAD ---
Date of service: 07/07/2018 HISTORY: syncope COMPARISON: 04/11/2017 FINDINGS: LUNGS: No active pulmonary disease. PLEURA: No significant pleural effusion identified, no pneumothorax apparent. CARDIOVASCULAR: No atherosclerotic calcification present No radiographic findings to suggest acute or significant cardiovascular disease. OSSEOUS STRUCTURES: No significant abnormalities. VISUALIZED UPPER ABDOMEN: Normal. OTHER FINDINGS: None. IMPRESSION: No active disease. No significant interval change compared to the prior examination(s).
--- NOTE | 2018-07-08 15:37 | CP.PCM.CON ---
History of Present Illness - History of Present Illness History of Present Illness: Neurology Consultation Note: Consult requested by Dr. Gloria Becerra Mrs. Rae is a 77-year-old woman with a past medical history of HTN, arthritis, gastritis, IBS, psychiatric issues, who presented to the ED with a somewhat unclear history of frequent falls due to seemingly mechanical causes. She is also on multiple anti-hypertensives and benzodiazepine. Non-contrast CT scan of the head did not show any concerning findings. Review of Systems - Review of Systems Review of Systems: poor historian Past Patient History - Infectious Disease Hx of Infectious Diseases: None - Tetanus Immunizations Tetanus Immunization: Unknown - Past Medical History & Family History Past Medical History?: Yes - Past Social History Smoking Status: Never Smoked - CARDIAC Hx Hypercholesterolemia: Yes Hx Hypertension: Yes Hx Pacemaker: No - PULMONARY Hx Chronic Obstructive Pulmonary Disease (COPD): Yes - NEUROLOGICAL Hx Seizures: No - HEENT Hx HEENT Problems: No - RENAL Hx Chronic Kidney Disease: Yes - ENDOCRINE/METABOLIC Hx Endocrine Disorders: No - HEMATOLOGICAL/ONCOLOGICAL Hx Human Immunodeficiency Virus (HIV): No - INTEGUMENTARY Hx Dermatological Problems: No - MUSCULOSKELETAL/RHEUMATOLOGICAL Hx Musculoskeletal Disorders: Yes - GASTROINTESTINAL Hx Gastritis: Yes - GENITOURINARY/GYNECOLOGICAL Hx Sexually Transmitted Disorders: No - PSYCHIATRIC Hx Anxiety: Yes Hx Bipolar Disorder: Yes Hx Depression: Yes - SURGICAL HISTORY Hx Tonsillectomy: Yes - ANESTHESIA Hx Anesthesia: Yes Hx Anesthesia Reactions: No Hx Malignant Hyperthermia: No Meds Allergies/Adverse Reactions: Allergies Allergy/AdvReac Type Severity Reaction Status Date / Time No Known Allergies Allergy Verified 07/07/18 18:11 - Medications Medications: Current Medications Alprazolam (Xanax) 0.5 mg PO TID PRN PRN Reason: Anxiety Amlodipine Besylate (Norvasc) 10 mg PO DAILY [facility] Atorvastatin Calcium (Lipitor) 20 mg PO DAILY [facility] Last Admin: 07/08/18 08:22 Dose: 20 mg Carvedilol (Coreg) 25 mg PO DAILY [facility] Last Admin: 07/08/18 08:22 Dose: 25 mg Cyanocobalamin (Vitamin B12 1000 Mcg/Ml Inj) 1,000 mcg IM DAILY [facility] Last Admin: 07/08/18 13:03 Dose: 1,000 mcg Famotidine (Pepcid) 20 mg PO DAILY [facility] Last Admin: 07/08/18 08:22 Dose: 20 mg Home Med (Levomilnacipran Hcl [Fetzima]) 120 mg PO DAILY [facility] Home Med (Linaclotide [Linzess]) 145 mcg PO DAILY [facility] Lisinopril (Zestril) 20 mg PO DAILY [facility] Last Admin: 07/08/18 08:23 Dose: 20 mg Pantoprazole Sodium (Protonix Ec Tab) 40 mg PO DAILY [facility] Last Admin: 07/08/18 08:23 Dose: 40 mg Temazepam (Restoril) 15 mg PO HS [facility] Last Admin: 07/08/18 00:12 Dose: 15 mg Trazodone HCl (Desyrel) [address] [facility] Physical Exam - Constitutional Appears: Well - Head Exam Head Exam: ATRAUMATIC, NORMAL INSPECTION, NORMOCEPHALIC - Eye Exam Eye Exam: EOMI, Normal appearance, PERRL Pupil Exam: NORMAL ACCOMODATION, PERRL - ENT Exam ENT Exam: Mucous Membranes Moist, Normal Exam - Neck Exam Neck exam: Positive for: Normal Inspection - Respiratory Exam Respiratory Exam: Clear to Auscultation Bilateral, NORMAL BREATHING PATTERN - Cardiovascular Exam Cardiovascular Exam: REGULAR RHYTHM, +S1, +S2 - GI/Abdominal Exam GI & Abdominal Exam: Normal Bowel Sounds, Soft. absent: Tenderness - Extremities Exam Extremities exam: Positive for: normal inspection - Back Exam Back exam: NORMAL INSPECTION - Neurological Exam Neurological exam: Alert, CN II-XII Intact, Normal Gait, Reflexes Normal - Psychiatric Exam Psychiatric exam: Normal Affect, Normal Mood - Skin Skin Exam: Dry, Intact, Normal Color, Warm Results - Vital Signs Recent Vital Signs: Last Vital Signs Temp 98 F 07/08/18 09:00 Pulse 87 07/08/18 10:30 Resp 18 07/08/18 08:40 BP 134/82 07/08/18 10:30 Pulse Ox 95 07/08/18 10:30 - Labs Result Diagrams: 07/08/18 04:25 07/08/18 04:25 Labs: Laboratory Results - last 24 hr 07/07/18 07/07/18 07/07/18 19:45 19:45 19:45 WBC 9.9 RBC 4.37 Hgb 13.2 Hct 39.9 MCV 91.3 MCH 30.3 MCHC 33.2 RDW 13.1 Plt Count 263 MPV 7.2 Neut % (Auto) 60.4 Lymph % (Auto) 26.1 [place] % (Auto) 11.0 H Eos % (Auto) 1.7 Baso % (Auto) 0.8 Neut # (Auto) 6.0 Lymph # (Auto) 2.6 [place] # (Auto) 1.1 H Eos # (Auto) 0.2 Baso # (Auto) 0.1 PT INR APTT Sodium 138 Potassium 3.7 Chloride 97 L Carbon Dioxide 27 Anion Gap 18 BUN 13 Creatinine 0.7 Est GFR ( Amer) > 60 Est GFR (Non-Af Amer) > 60 Random Glucose 127 H Calcium 10.2 Total Bilirubin 0.4 AST 22 ALT 24 Alkaline Phosphatase 80 Troponin I < 0.0120 Total Protein 7.2 Albumin 4.1 Globulin 3.2 Albumin/Globulin Ratio 1.3 Vitamin B12 Folate TSH 3rd Generation Urine Color Straw Urine Clarity Slighty-cloudy Urine pH 7.0 Ur Specific [place] < 1.005 Urine Protein Negative Urine Glucose (UA) Neg Urine Ketones Negative Urine Blood Moderate Urine Nitrate Negative Urine Bilirubin Negative Urine Urobilinogen 0.2-1.0 Ur Leukocyte Esterase Small Urine RBC (Auto) 9 H Urine Microscopic WBC 7 H Ur Squamous Epith Cells < 1 Urine Bacteria Rare 07/07/18 07/08/18 07/08/18 19:45 04:25 04:25 WBC 7.4 RBC 3.98 Hgb 12.1 Hct 36.4 MCV 91.4 MCH 30.5 MCHC 33.3 RDW 13.4 Plt Count 231 MPV Neut % (Auto) Lymph % (Auto) [place] % (Auto) Eos % (Auto) Baso % (Auto) Neut # (Auto) Lymph # (Auto) [place] # (Auto) Eos # (Auto) Baso # (Auto) PT 11.4 INR 1.0 APTT 29.4 Sodium 142 Potassium 3.4 L Chloride 102 Carbon Dioxide 27 Anion Gap 16 BUN 10 Creatinine 0.6 L Est GFR ( Amer) > 60 Est GFR (Non-Af Amer) > 60 Random Glucose 104 Calcium 9.5 Total Bilirubin AST ALT Alkaline Phosphatase Troponin I < 0.0120 Total Protein Albumin Globulin Albumin/Globulin Ratio Vitamin B12 214 L Folate 14.7 TSH 3rd Generation 1.12 Urine Color Urine Clarity Urine pH Ur Specific [place] Urine Protein Urine Glucose (UA) Urine Ketones Urine Blood Urine Nitrate Urine Bilirubin Urine Urobilinogen Ur Leukocyte Esterase Urine RBC (Auto) Urine Microscopic WBC Ur Squamous Epith Cells Urine Bacteria 07/08/18 12:48 WBC RBC Hgb Hct MCV MCH MCHC RDW Plt Count MPV Neut % (Auto) Lymph % (Auto) [place] % (Auto) Eos % (Auto) Baso % (Auto) Neut # (Auto) Lymph # (Auto) [place] # (Auto) Eos # (Auto) Baso # (Auto) PT INR APTT Sodium Potassium Chloride Carbon Dioxide Anion Gap BUN Creatinine Est GFR ( Amer) Est GFR (Non-Af Amer) Random Glucose Calcium Total Bilirubin AST ALT Alkaline Phosphatase Troponin I < 0.0120 Total Protein Albumin Globulin Albumin/Globulin Ratio Vitamin B12 Folate TSH 3rd Generation Urine Color Urine Clarity Urine pH Ur Specific [place] Urine Protein Urine Glucose (UA) Urine Ketones Urine Blood Urine Nitrate Urine Bilirubin Urine Urobilinogen Ur Leukocyte Esterase Urine RBC (Auto) Urine Microscopic WBC Ur Squamous Epith Cells Urine Bacteria Assessment & Plan (1) Frequent falls Assessment and Plan: The patient has a non-focal exam and CT head is not concerning. She claims the falls are mechanical. She may have become hypotensive, or could have cardiac causes as well. She does have dizziness, but not vertigo. It is difficult to determine if this is a neurological cause. I recommend obtaining an EEG and a CTA for further evaluation. Thank you for this consultation. Status: Acute
[2018-07-08] MEDS ORDERED: Iodixanol 320 MG/ML 100 ML BOTTLE IV ONE (16:53)
[2018-07-08] MEDS ORDERED: Sodium Chloride 0.9% 50 ML IV ONE (16:53)
[2018-07-09 05:37] LABS: BASO % 0.4 % (0.0-2.0); EOS # 0.2 K/uL (0.0-0.7); EOS % 2.7 % (0.0-4.0); HEMOGLOBIN 12.3 g/dL (12.0-16.0); LYMPH # 2.2 K/uL (1.0-4.3); LYMPH % 32.6 % (20.0-40.0); MEAN CELL VOLUME 92.2 fl (81.0-99.0); MEAN CORPUSCULAR HEMOGLOBIN 30.3 pg (27.0-31.0); MEAN CORPUSCULAR HGB CONC 32.8 g/dL (33.0-37.0); MEAN PLATELET VOLUME 7.7 fl (7.2-11.7); MONO # 0.8 K/uL (0.0-0.8); MONO % 11.9 % (0.0-10.0); NEUT # 3.6 K/uL (1.8-7.0); NEUT % 52.4 % (50.0-75.0); NRBC % 0.1 % (0.0-0.0); RBC 4.08 Mil/uL (3.80-5.20); RED CELL DISTRIBUTION WIDTH 13.5 % (11.5-14.5); WHITE BLOOD COUNT 6.9 K/uL (4.8-10.8)
[2018-07-09 05:58] LABS: ALB/GLOB RATIO 1.2 (1.0-2.1); ALBUMIN 3.4 g/dL (3.5-5.0); ALT/SGPT 28 U/L (9-52); AST/SGOT 22 U/L (14-36); BLOOD UREA NITROGEN 13 mg/dl (7-17); CALCIUM 9.3 mg/dL (8.4-10.2); GFR NON-AFRICAN AMERICAN > 60
[2018-07-09] MEDS: Pantoprazole 40 mg EC Tab PO SCH (08:52)
[2018-07-09] MEDS ORDERED: Enoxaparin 40 mg Syringe SC SCH (09:00)
--- NOTE | 2018-07-09 10:33 | PCM.EEG ---
Electroencephalogram Report - Electroencephalogram Report Procedure Date: 07/08/18 Medication: Cymbalta, Xanax, Lipitor Interpretation: Technical Information: This was a 16 -channel EEG, 1-channel EKG routine EEG performed using an [employer] machine. Electrodes were applied using the 10/20 international placement system. start; 18;28 End; Total 51 min. Clinical Information: falls During resting wakefulness there was a symmetric posterior dominant rhythm at 8.5-9.5 Hz, 30-50 uV, which was reactive to eye opening and closing. Drowsiness (18;48) was associated with fragmentation of the posterior dominant rhythm and with slow roving eye movements. Hyperventilation was not performed. Photic stimulation was performed and there were no changes on the record. Focal abnormality; none Interictal abnormalities; none. ECG was associated with a normal sinus rhythm. Impression: This is a normal awake and drowsy electroencephalogram.
--- NOTE | 2018-07-09 10:47 | CP.PCM.DIS ---
<Sultan Kenneth - Last Filed: 07/09/18 11:34> Provider - Provider Date of Admission: 07/07/18 20:56 Attending physician: Gloria Becerra MD Consults: 07/07/18 22:32 Neurology Consult Routine Comment: hx multiple falls, dizziness Consulting Provider: Tacos Hernández Consulting Physician: Tacos Hernández Reason for Consult: hx multiple falls, dizziness 07/07/18 22:56 Cardiology Consult Stat Comment: syncope, falls Consulting Provider: Stevan Mancera Consulting Physician: Stevan Mancera Reason for Consult: syncope, falls 07/08/18 00:52 Case Management Referral Routine Comment: Physician Instructions: Reason For Exam: Reason for Referral: Discharge Planning Time Spent in preparation of Discharge (in minutes): 30 Diagnosis - Discharge Diagnosis (1) Dizziness of unknown cause Status: Chronic (2) Frequent falls Status: Chronic (3) Syncope Status: Resolved (4) B12 deficiency Status: Acute (5) Arthritis Status: Chronic (6) Major depression Status: Chronic Priority: High (7) Anxiety Status: Chronic (8) Gastritis Status: Chronic Priority: Low (9) HTN (hypertension) Status: Chronic Priority: Medium (10) Ecchymosis Status: Acute Hospital Course - Lab Results Lab Results: Most Recent Lab Values WBC 6.9 K/uL (4.8-10.8) 07/09/18 04:15 RBC 4.08 Mil/uL (3.80-5.20) 07/09/18 04:15 Hgb 12.3 g/dL (12.0-16.0) 07/09/18 04:15 Hct 37.6 % (34.0-47.0) 07/09/18 04:15 MCV 92.2 fl (81.0-99.0) 07/09/18 04:15 MCH 30.3 pg (27.0-31.0) 07/09/18 04:15 MCHC 32.8 g/dL (33.0-37.0) L 07/09/18 04:15 RDW 13.5 % (11.5-14.5) 07/09/18 04:15 Plt Count 249 K/uL (130-400) 07/09/18 04:15 MPV 7.7 fl (7.2-11.7) 07/09/18 04:15 Neut % (Auto) 52.4 % (50.0-75.0) 07/09/18 04:15 Lymph % (Auto) 32.6 % (20.0-40.0) 07/09/18 04:15 [place] % (Auto) 11.9 % (0.0-10.0) H 07/09/18 04:15 Eos % (Auto) 2.7 % (0.0-4.0) 07/09/18 04:15 Baso % (Auto) 0.4 % (0.0-2.0) 07/09/18 04:15 Neut # (Auto) 3.6 K/uL (1.8-7.0) 07/09/18 04:15 Lymph # (Auto) 2.2 K/uL (1.0-4.3) 07/09/18 04:15 [place] # (Auto) 0.8 K/uL (0.0-0.8) 07/09/18 04:15 Eos # (Auto) 0.2 K/uL (0.0-0.7) 07/09/18 04:15 Baso # (Auto) 0.0 K/uL (0.0-0.2) 07/09/18 04:15 PT 11.4 Seconds (9.8-13.1) 07/07/18 19:45 INR 1.0 07/07/18 19:45 APTT 29.4 Seconds (25.6-37.1) 07/07/18 19:45 Sodium 142 mmol/l (132-148) 07/09/18 04:15 Potassium 3.8 MMOL/L (3.6-5.0) 07/09/18 04:15 Chloride 102 mmol/L (98-107) 07/09/18 04:15 Carbon Dioxide 29 mmol/L (22-30) 07/09/18 04:15 Anion Gap 15 (10-20) 07/09/18 04:15 BUN 13 mg/dl (7-17) 07/09/18 04:15 Creatinine 0.6 mg/dl (0.7-1.2) L 07/09/18 04:15 Est GFR ( Amer) > 60 07/09/18 04:15 Est GFR (Non-Af Amer) > 60 07/09/18 04:15 Random Glucose 108 mg/dL (65-105) H 07/09/18 04:15 Calcium 9.3 mg/dL (8.4-10.2) 07/09/18 04:15 Phosphorus 3.2 mg/dl (2.5-4.5) 07/09/18 04:15 Magnesium 1.6 MG/DL (1.6-2.3) 07/09/18 04:15 Total Bilirubin 0.4 mg/dl (0.2-1.3) 07/09/18 04:15 AST 22 U/L (14-36) 07/09/18 04:15 ALT 28 U/L (9-52) 07/09/18 04:15 Alkaline Phosphatase 76 U/L (38-126) 07/09/18 04:15 Troponin I < 0.0120 ng/mL (0.00-0.120) 07/08/18 12:48 Total Protein 6.1 G/DL (6.3-8.2) L 07/09/18 04:15 Albumin 3.4 g/dL (3.5-5.0) L 07/09/18 04:15 Globulin 2.8 gm/dL (2.2-3.9) 07/09/18 04:15 Albumin/Globulin Ratio 1.2 (1.0-2.1) 07/09/18 04:15 Vitamin B12 214 pg/mL (239-931) L 07/08/18 04:25 Folate 14.7 ng/mL 07/08/18 04:25 TSH 3rd Generation 1.12 mIU/ML (0.46-4.68) 07/08/18 04:25 Urine Color Straw (YELLOW) 07/07/18 19:45 Urine Clarity Slighty-cloudy (Clear) 07/07/18 19:45 Urine pH 7.0 (5.0-8.0) 07/07/18 19:45 Ur Specific [place] < 1.005 (1.003-1.030) 07/07/18 19:45 Urine Protein Negative mg/dL (NEGATIVE) 07/07/18 19:45 Urine Glucose (UA) Neg mg/dL (NEGATIVE) 07/07/18 19:45 Urine Ketones Negative mg/dL (NEGATIVE) 07/07/18 19:45 Urine Blood Moderate (NEGATIVE) 07/07/18 19:45 Urine Nitrate Negative (NEGATIVE) 07/07/18 19:45 Urine Bilirubin Negative (NEGATIVE) 07/07/18 19:45 Urine Urobilinogen 0.2-1.0 mg/dL (0.2-1.0) 07/07/18 19:45 Ur Leukocyte Esterase Small Sunday/uL (Negative) 07/07/18 19:45 Urine RBC (Auto) 9 /hpf (0-3) H 07/07/18 19:45 Urine Microscopic WBC 7 /hpf (0-5) H 07/07/18 19:45 Ur Squamous Epith Cells < 1 /hpf (0-5) 07/07/18 19:45 Urine Bacteria Rare (<OCC) 07/07/18 19:45 - Hospital Course Hospital Course: 77-year-old female with a past medical history of HTN, arthritis, gastritis, anxiety and depression admitted to [facility] on 07/07/18 for evaluation of frequent falls and dizziness. Neurologist Dr. Hernández and mgmt specialist Dr. Mancera were consulted during hospitalization. Patient had negative troponin x 3, ECG showed no acute changes. Echo showed normal EF of 60-65%. Non-contrast CT scan of the head non-significant dilated ventricles. CTA of head/neck was unremarkable ([facility]AD reading) and EEG was normal as well. Physical therapist recommended TCU for continuous physical therapy but patient prefers to have PT at home. Patient was also found to have B12 deficiency. This morning, patient reports she is feeling better but still feels dizzy sometimes. Denies any chest pain , dyspnea, or focal weakness. Patient is hemodynamically stable to discharge home. Advised to follow up with her primary doctor and psychiatrist within one week for possible reduction of psychiatric medications as medications may have been contributing to patient's dizziness. Discharge Exam - Head Exam Head Exam: ATRAUMATIC, NORMAL INSPECTION, NORMOCEPHALIC - Eye Exam Eye Exam: Normal appearance - ENT Exam ENT Exam: Mucous Membranes Moist - Neck Exam Neck exam: Normal Inspection - Respiratory Exam Respiratory Exam: Clear to PA & Lateral, NORMAL BREATHING PATTERN. absent: Respiratory Distress - Cardiovascular Exam Cardiovascular Exam: REGULAR RHYTHM, +S1, +S2 - GI/Abdominal Exam GI & Abdominal Exam: Normal Bowel Sounds, Soft. absent: Tenderness - Extremities Exam Additional comments: superficial visible veins on lower extremities - Neurological Exam Neurological exam: Alert, Oriented x3 - Psychiatric Exam Psychiatric exam: Normal Affect, Normal Mood - Skin Additional comments: Large ~10 cm x 10 cm hematoma on L hip. No induration or fluctuance. Discharge Plan - Discharge Medications Prescriptions: Cyanocobalamin [Vitamin B12 1000 mcg Tab] 1,000 mcg PO DAILY #30 tab Folic Acid 1 mg PO DAILY #30 tab - Follow Up Plan Condition: STABLE Disposition: HOME/ ROUTINE Instructions: Preventing Falls in the Older Adult, Dizziness, Nonvertigo, (DC) Additional Instructions: Please follow up with your primary care doctor within one week. Please follow up with your psychiatrist in few days. Discuss about considering to reduce medications as some of the medications can be contributing to your dizziness. Referrals: Jamaal Ramos [Family Provider] - Stevan Mancera MD [Staff Provider] - Tacos Hernández MD [Medical Doctor] - <GurmeetStephaniereggie Jimenez - Last Filed: 07/09/18 18:39> Provider - Provider Date of Admission: 07/07/18 20:56 Attending physician: Gloria Becerra MD Consults: 07/07/18 22:32 Neurology Consult Routine Comment: hx multiple falls, dizziness Consulting Provider: Tacos Hernández Consulting Physician: Tacos Hernández Reason for Consult: hx multiple falls, dizziness 07/07/18 22:56 Cardiology Consult Stat Comment: syncope, falls Consulting Provider: Stevan Mancera Consulting Physician: Stevan Mancera Reason for Consult: syncope, falls 07/08/18 00:52 Case Management Referral Routine Comment: Physician Instructions: Reason For Exam: Reason for Referral: Discharge Planning Hospital Course - Lab Results Lab Results: Most Recent Lab Values WBC 6.9 K/uL (4.8-10.8) 07/09/18 04:15 RBC 4.08 Mil/uL (3.80-5.20) 07/09/18 04:15 Hgb 12.3 g/dL (12.0-16.0) 07/09/18 04:15 Hct 37.6 % (34.0-47.0) 07/09/18 04:15 MCV 92.2 fl (81.0-99.0) 07/09/18 04:15 MCH 30.3 pg (27.0-31.0) 07/09/18 04:15 MCHC 32.8 g/dL (33.0-37.0) L 07/09/18 04:15 RDW 13.5 % (11.5-14.5) 07/09/18 04:15 Plt Count 249 K/uL (130-400) 07/09/18 04:15 MPV 7.7 fl (7.2-11.7) 07/09/18 04:15 Neut % (Auto) 52.4 % (50.0-75.0) 07/09/18 04:15 Lymph % (Auto) 32.6 % (20.0-40.0) 07/09/18 04:15 [place] % (Auto) 11.9 % (0.0-10.0) H 07/09/18 04:15 Eos % (Auto) 2.7 % (0.0-4.0) 07/09/18 04:15 Baso % (Auto) 0.4 % (0.0-2.0) 07/09/18 04:15 Neut # (Auto) 3.6 K/uL (1.8-7.0) 07/09/18 04:15 Lymph # (Auto) 2.2 K/uL (1.0-4.3) 07/09/18 04:15 [place] # (Auto) 0.8 K/uL (0.0-0.8) 07/09/18 04:15 Eos # (Auto) 0.2 K/uL (0.0-0.7) 07/09/18 04:15 Baso # (Auto) 0.0 K/uL (0.0-0.2) 07/09/18 04:15 PT 11.4 Seconds (9.8-13.1) 07/07/18 19:45 INR 1.0 07/07/18 19:45 APTT 29.4 Seconds (25.6-37.1) 07/07/18 19:45 Sodium 142 mmol/l (132-148) 07/09/18 04:15 Potassium 3.8 MMOL/L (3.6-5.0) 07/09/18 04:15 Chloride 102 mmol/L (98-107) 07/09/18 04:15 Carbon Dioxide 29 mmol/L (22-30) 07/09/18 04:15 Anion Gap 15 (10-20) 07/09/18 04:15 BUN 13 mg/dl (7-17) 07/09/18 04:15 Creatinine 0.6 mg/dl (0.7-1.2) L 07/09/18 04:15 Est GFR ( Amer) > 60 07/09/18 04:15 Est GFR (Non-Af Amer) > 60 07/09/18 04:15 Random Glucose 108 mg/dL (65-105) H 07/09/18 04:15 Calcium 9.3 mg/dL (8.4-10.2) 07/09/18 04:15 Phosphorus 3.2 mg/dl (2.5-4.5) 07/09/18 04:15 Magnesium 1.6 MG/DL (1.6-2.3) 07/09/18 04:15 Total Bilirubin 0.4 mg/dl (0.2-1.3) 07/09/18 04:15 AST 22 U/L (14-36) 07/09/18 04:15 ALT 28 U/L (9-52) 07/09/18 04:15 Alkaline Phosphatase 76 U/L (38-126) 07/09/18 04:15 Troponin I < 0.0120 ng/mL (0.00-0.120) 07/08/18 12:48 Total Protein 6.1 G/DL (6.3-8.2) L 07/09/18 04:15 Albumin 3.4 g/dL (3.5-5.0) L 07/09/18 04:15 Globulin 2.8 gm/dL (2.2-3.9) 07/09/18 04:15 Albumin/Globulin Ratio 1.2 (1.0-2.1) 07/09/18 04:15 Vitamin B12 214 pg/mL (239-931) L 07/08/18 04:25 Folate 14.7 ng/mL 07/08/18 04:25 TSH 3rd Generation 1.12 mIU/ML (0.46-4.68) 07/08/18 04:25 Urine Color Straw (YELLOW) 07/07/18 19:45 Urine Clarity Slighty-cloudy (Clear) 07/07/18 19:45 Urine pH 7.0 (5.0-8.0) 07/07/18 19:45 Ur Specific [place] < 1.005 (1.003-1.030) 07/07/18 19:45 Urine Protein Negative mg/dL (NEGATIVE) 07/07/18 19:45 Urine Glucose (UA) Neg mg/dL (NEGATIVE) 07/07/18 19:45 Urine Ketones Negative mg/dL (NEGATIVE) 07/07/18 19:45 Urine Blood Moderate (NEGATIVE) 07/07/18 19:45 Urine Nitrate Negative (NEGATIVE) 07/07/18 19:45 Urine Bilirubin Negative (NEGATIVE) 07/07/18 19:45 Urine Urobilinogen 0.2-1.0 mg/dL (0.2-1.0) 07/07/18 19:45 Ur Leukocyte Esterase Small Sunday/uL (Negative) 07/07/18 19:45 Urine RBC (Auto) 9 /hpf (0-3) H 07/07/18 19:45 Urine Microscopic WBC 7 /hpf (0-5) H 07/07/18 19:45 Ur Squamous Epith Cells < 1 /hpf (0-5) 07/07/18 19:45 Urine Bacteria Rare (<OCC) 07/07/18 19:45 Attending/Attestation - Attestation I have personally seen and examined this patient.: Yes I have fully participated in the care of the patient.: Yes I have reviewed all pertinent clinical information, including history, physical exam and plan: Yes Notes (Text): Fall, question of Syncope B12 Deficiency Depression/Anxiety HTN - Trop x 3 neg, TSH normal - B12 low- started B12 shots - CT of head ,EEG and CTA ; unremarkable - cleared by Neurology - Cardio consulted - noncardiac etio for fall accdg to Dr Mancera - ECHO : normal EF - Carotid Sono; neg
--- NOTE | 2018-07-09 11:57 | CP.PCM.PN ---
Subjective - Date & Time of Evaluation Date of Evaluation: 07/09/18 Time of Evaluation: 11:00 - Subjective Subjective: Neuro Follow-Up Note: Mrs. Rae was evaluated this morning at bedside. She states that she feels better than yesterday. She admits that she is being d/c today. Denies any h/a, dizziness, visual changes, chest pain, palpitations, sob, abd pain, n/v/d. Objective - Vital Signs/Intake and Output Vital Signs (last 24 hours): Temp Pulse Resp BP Pulse Ox 98.2 F 101 H 18 161/91 H 96 07/09/18 07:56 07/09/18 07:56 07/09/18 07:56 07/09/18 07:56 07/09/18 07:56 Intake and Output: 07/09/18 07/09/18 06:59 18:59 Intake Total 200 Balance 200 - Medications Medications: Current Medications Alprazolam (Xanax) 0.5 mg PO Q8 PRN PRN Reason: Anxiety Amlodipine Besylate (Norvasc) 10 mg PO DAILY [facility] Last Admin: 07/09/18 11:22 Dose: 10 mg Atorvastatin Calcium (Lipitor) 20 mg PO DAILY [facility] Last Admin: 07/09/18 08:52 Dose: 20 mg Carvedilol (Coreg) 25 mg PO DAILY [facility] Last Admin: 07/09/18 08:52 Dose: 25 mg Cyanocobalamin (Vitamin B12 1000 Mcg/Ml Inj) 1,000 mcg IM DAILY [facility] Last Admin: 07/09/18 08:52 Dose: 1,000 mcg Doxepin HCl (Sinequan) 50 mg PO [facility] Duloxetine HCl (Cymbalta) 60 mg PO BID [facility] Last Admin: 07/09/18 08:52 Dose: 60 mg Enoxaparin Sodium (Lovenox) 40 mg SC DAILY [facility]; Protocol Last Admin: 07/09/18 11:22 Dose: 40 mg Famotidine (Pepcid) 20 mg PO DAILY [facility] Last Admin: 07/09/18 08:52 Dose: 20 mg Folic Acid (Folic Acid) 1 mg PO Q12 [facility] Last Admin: 07/09/18 11:22 Dose: 1 mg Home Med (Levomilnacipran Hcl [Fetzima]) 120 mg PO DAILY [facility] Home Med (Linaclotide [Linzess]) 145 mcg PO DAILY [facility] Lisinopril (Zestril) 20 mg PO DAILY [facility] Last Admin: 07/09/18 08:52 Dose: 20 mg Pantoprazole Sodium (Protonix Ec Tab) 40 mg PO DAILY [facility] Last Admin: 07/09/18 08:52 Dose: 40 mg Temazepam (Restoril) 15 mg PO HS [facility] Last Admin: 07/08/18 21:31 Dose: 15 mg - Labs Labs: 07/09/18 04:15 07/09/18 04:15 PT 11.4 Seconds (9.8-13.1) 07/07/18 19:45 INR 1.0 07/07/18 19:45 APTT 29.4 Seconds (25.6-37.1) 07/07/18 19:45 - Constitutional Appears: Non-toxic - Head Exam Head Exam: ATRAUMATIC, NORMAL INSPECTION, NORMOCEPHALIC - Eye Exam Eye Exam: EOMI, Normal appearance Pupil Exam: NORMAL ACCOMODATION, PERRL - ENT Exam ENT Exam: Mucous Membranes Moist - Neck Exam Neck Exam: Full ROM, Normal Inspection - Respiratory Exam Respiratory Exam: NORMAL BREATHING PATTERN - Extremities Exam Extremities Exam: Full ROM. absent: Calf Tenderness, Pedal Edema - Back Exam Back Exam: Full ROM - Neurological Exam Neurological Exam: Abnormal Gait (uses cane), Alert, Awake, CN II-XII Intact, Oriented x3 Neuro motor strength exam: Left Upper Extremity: 5, Right Upper Extremity: 5, Left Lower Extremity: 4, Right Lower Extremity: 4 Additional comments: Speech clear, fluid Some weakness noted to BLE 2/2 deconditioning No focal motor or sensory deficits noted No tremors No dysmetria; no ataxia - Psychiatric Exam Psychiatric exam: Normal Affect, Normal Mood - Skin Skin Exam: Normal Color Assessment and Plan (1) Frequent falls Assessment & Plan: Imaging reviewed: -EEG: This is a normal awake and drowsy electroencephalogram. -CTA Head and Neck ([facility] report): unremarkable. -Recommend to follow up with PMD if pt is d/c this afternoon. -No further neuro recommendations at this time. Reconsult prn. Thank you for allowing us to participate in this pt's care. Agustina Lane, DNP, [employer] Case discussed with Dr. Hernández Status: Chronic
[2018-07-09 12:41] VITALS: BP 118/70; PULSE 73; TEMP 98.6; O2SAT 95
--- NOTE | 2018-07-09 16:47 | CT ---
Date of service: 07/08/2018 PROCEDURE: CT Angiography of the Brain and Neck. HISTORY: syncope, recurrent fall COMPARISON: None available. TECHNIQUE: CT angiography of the head and neck was performed following intravenous contrast administration. Coronal and sagittal maximum intensity projection reformatted images were generated. Contrast Dose: Visipaque 320, 90 cc Radiation dose: Total exam DLP = 444.15 mGy-cm. This CT exam was performed using one or more of the following dose reduction techniques: Automated exposure control, adjustment of the mA and/or kV according to patient size, and/or use of iterative reconstruction technique. FINDINGS: INTERNAL CEREBRAL ARTERIES: Note is made of minimally calcified atherosclerosis of the bilateral cavernous internal carotid artery segments without significant stenosis. The skull base, petrous, and supraclinoid segments are bilaterally widely patent. The skull base, petrous, cavernous and supraclinoid segments are bilaterally widely patent. ANTERIOR CEREBRAL ARTERIES: Unremarkable. A1 and A2 segments are widely patent. Smaller distal branches unremarkable, as visualized. MIDDLE CEREBRAL ARTERIES: Unremarkable. M1 and M2 segments are widely patent. Perisylvian branches grossly symmetric. POSTERIOR CIRCULATION: Basilar Artery: Unremarkable. Distal Vertebral Arteries: Right dominant vertebrobasilar circulation. Posterior Cerebral Arteries: Unremarkable. Posterior Inferior Cerebellar Arteries: Unremarkable. NECK CTA: Common Carotid arteries: The bilateral common carotid appear widely patent from their origins to their bifurcations with no significant stenosis appreciated. No evidence to suggest common carotid artery dissection. Trace atherosclerotic plaque is partially calcified at the bilateral carotid bulb regions. Internal Carotid arteries: No significant stenosis is appreciated throughout the cervical internal carotid artery segments bilaterally and there is no evidence of dissection either. External Carotid arteries: Appear unremarkable bilaterally. Vertebral arteries: The bilateral vertebral arteries appear normal in caliber from their origins to their distal cervical segments. No significant stenosis or definite pattern of dissection. ANEURYSM/ VASCULAR MALFORMATIONS: None. OTHER FINDINGS: None. IMPRESSION: No occlusion or significant stenosis is appreciated in the CT angiogram of the Head and Neck as discussed above. Limited atherosclerosis of the cavernous internal carotid arteries identified as well as the bilateral carotid bulbs without significant stenosis resulting.
== END 2018-07-09 14:32 | disposition home health service (06) ==
LOC: H.ER 16:37 → H.ERHOLD 20:56 → H.TEL 23:16
PROVIDERS: ADMIT Internal Medicine; ATTEND Internal Medicine
DX: R55 Syncope and collapse (principal); E53.8 Deficiency of other specified B group vitamins; K58.9 Irritable bowel syndrome, unspecified; J44.9 Chronic obstructive pulmonary disease, unspecified; I10 Essential (primary) hypertension; E78.5 Hyperlipidemia, unspecified; E78.00 Pure hypercholesterolemia, unspecified; K29.50 Unspecified chronic gastritis without bleeding; M19.90 Unspecified osteoarthritis, unspecified site; F41.8 Other specified anxiety disorders; F31.9 Bipolar disorder, unspecified; R29.6 Repeated falls; Z91.81 History of falling; Z87.442 Personal history of urinary calculi
CPT/HCPCS: 36415; 70450; 70496; 70498; 71045; 73502; 80048; 80053; 81003; 82607; 82746; 83735; 84100; 84443; 84484; 85025; 85027; 85610; 85730; 93005; 93306; 93880; 96374; 97162; 99285; G0378; G8978; G8979; J1650; J1885; J3420; J7030; Q9967